=== PATIENT | male | born 1980 | race American Indian/Alaskan Native ===

== ENCOUNTER 2017-05-07 01:24 | Inpatient (IN) | payer MEDICARE, MEDICAID, OTHER ==
--- NOTE | 2017-05-07 01:57 | ED PDOC ---
Arrival/HPI - General Chief Complaint: ENT Problem Time Seen by Provider: 05/07/17 01:34 Historian: Patient - History of Present Illness Narrative History of Present Illness (Text): 05/07/17 01:50 Barry Danielson is a 37 year old male, with a history of CHF, hemodialysis and hypertension, presents to the emergency department complaining of 4 day duration of nosebleed. States he was evaluated by [facility] for these symptoms and was discharged home without a packing. Presents to the emergency department because he started bleeding again. Denies any fever, chills, headache, dizziness , chest pain, difficulty breathing, nausea, vomiting, diarrhea, or any other complaints at this time. Time/Duration: Other (4 days ) Symptom Onset: Gradual Symptom Course: Unchanged Activities at Onset: Light Past Medical History - Provider Review Nursing Documentation Reviewed: Yes - Infectious Disease Hx of Infectious Diseases: None - Cardiac Hx Congestive Heart Failure: Yes Hx Hypertension: Yes - Renal Hx Dialysis: Yes (MWF) Type of Dialysis Access: L AV Shunt - Psychiatric Hx Substance Use: No - Surgical History Other/Comment: L AV shunt - Anesthesia Hx Anesthesia: Yes Hx Anesthesia Reactions: No Hx Malignant Hyperthermia: No Family/Social History - Physician Review Nursing Documentation Reviewed: Yes Family/Social History: No Known Family HX Smoking Status: Unknown If Ever Smoked Hx Alcohol Use: No Hx Substance Use: No Allergies/Home Meds Allergies/Adverse Reactions: Allergies heparin Allergy (Verified 05/07/17 01:40) ANAPHYLAXIS PORK Allergy (Verified 05/07/17 01:40) ANAPHYLAXIS shellfish derived Adverse Reaction (Severe, Verified 05/10/17 11:54) RASH hives shellfish Allergy (Mild, Uncoded 05/10/17 11:54) RASH and hives Review of Systems - Physician Review All systems were reviewed & negative as marked: Yes - Review of Systems Constitutional: Normal. absent: Fatigue, Fevers ENT: Epistaxis Respiratory: Normal. absent: SOB, Cough, Sputum Cardiovascular: Normal. absent: Chest Pain Neurological: Normal. absent: Headache, Dizziness Psychiatric: Normal Physical Exam Vital Signs Reviewed: Yes Vital Signs Temp Pulse Resp BP Pulse Ox 05/07/17 04:50 153/108 H 05/07/17 03:24 102 H 18 158/102 H 96 05/07/17 01:24 98.1 F 109 H 18 137/108 H 95 Temperature: Afebrile Blood Pressure: Normal Pulse: Regular Respiratory Rate: Normal Appearance: Positive for: Non-Toxic Pain Distress: None Mental Status: Positive for: Alert and Oriented X 3 - Systems Exam Head: Present: Atraumatic, Normocephalic Extroacular Muscles: Present: EOMI Conjunctiva: Present: Normal Mouth: Present: Moist Mucous Membranes Nose (Internal): Present: Epistaxis (active bleeding from b/l nares ). No: Septal Hematoma Respiratory/Chest: Present: Clear to Auscultation, Good Air Exchange. No: Respiratory Distress, Accessory Muscle Use Cardiovascular: Present: Regular Rate and Rhythm, Normal S1, S2. No: Murmurs Abdomen: Present: Normal Bowel Sounds. No: Tenderness, Distention, Peritoneal Signs Upper Extremity: Present: Normal Inspection. No: Cyanosis, Edema Lower Extremity: Present: Normal Inspection. No: Edema Neurological: Present: GCS=15, CN II-XII Intact, Speech Normal, Motor Func Grossly Intact, Normal Sensory Function Skin: Present: Warm, Dry, Normal Color. No: Rashes Psychiatric: Present: Alert, Oriented x 3, Normal Insight, Normal Concentration Medical Decision Making ED Course and Treatment: 05/07/17 01:58 Impression: A 37 year old male who presents to the emergency department complaining of 4 day duration of epistaxis. Plan: -- Labs -- Nasal packing -- Reassess and disposition Progress Notes: 05/07/17 01:59 Bleeding stopped after bilateral nasal packing with rhinorocket. Patient was able to tolerate the procedure with good hemostasis. 05/07/17 04:00 Case discussed with who is aware and agrees with the plan to observe patient at remote telemetry for epistaxis. Accepts patient under his service. 05/07/17 05:33 EKG reviewed by me: NSR @ 98bpm. Left anterior fascicular block. Non specific ST/T wave abnormality. Prolonged QT - Lab Interpretations Lab Results: 05/08/17 06:00 05/08/17 06:00 Lab Results 05/08/17 06:00: Sodium 137, Potassium 4.3, Chloride 96 L, Carbon Dioxide 31, Anion Gap 14, BUN 30 H, Creatinine 11.4 H*, Est GFR ( Amer) 6, Est GFR ( Non-Af Amer) 5, Random Glucose 78, Calcium 8.8, Phosphorus 4.8 H, Magnesium 2.2 , Total Bilirubin 1.1, Direct Bilirubin 0.6 H, AST 17, ALT 21, Alkaline Phosphatase 107, Total Protein 6.6, Albumin 3.3, Globulin 3.3, Albumin/Globulin Ratio 1.0 L 05/08/17 06:00: WBC 3.7 L, RBC 2.83 L, Hgb 8.6 L, Hct 26.9 L, MCV 95.1, MCH 30.4 , MCHC 32.0, RDW 15.4 H, Plt Count 89 L, MPV 9.6 05/07/17 10:20: HIV 1&2 Ag/Ab, 4th Gen Nonreactive 05/07/17 10:20: 25-OH Vitamin D Total 18.2 L 05/07/17 10:20: Free T4 1.25, Thyroxine (T4) 6.8, TSH 3rd Generation 2.82 05/07/17 10:20: Triglycerides 47, Cholesterol 87 L, LDL Cholesterol Direct < 30 , HDL Cholesterol 52 05/07/17 10:20: PT 12.3 H, INR 1.14 H, APTT 28.6 05/07/17 10:20: WBC 4.1 L, RBC 3.06 L, Hgb 9.5 L, Hct 28.9 L, MCV 94.4, MCH 31.0 , MCHC 32.9, RDW 15.3 H, Plt Count 98 L, MPV 9.2, Gran % 56.0, Lymph % (Auto) 25.9, Thayer % (Auto) 11.4 H, Eos % (Auto) 6.2 H, Baso % (Auto) 0.5, Gran # 2.27, Lymph # 1.1 L, Thayer # 0.5, Eos # 0.3, Baso # 0.02 05/07/17 03:00: Blood Type Confirm O POSITIVE 05/07/17 02:00: PT 12.1 H, INR 1.12 H, APTT 28.0 05/07/17 02:00: Blood Type O POSITIVE, Antibody Screen Negative, Crossmatch See Detail, BBK History Checked No verified bt 05/07/17 02:00: Sodium 138, Potassium 4.2, Chloride 96 L, Carbon Dioxide 32, Anion Gap 14, BUN 21, Creatinine 9.4 H*, Est GFR ( Amer) 8, Est GFR (Non- Af Amer) 6, Random Glucose 93, Calcium 9.1, Total Bilirubin 1.7 H, AST 25, ALT 16, Alkaline Phosphatase 118, Total Protein 7.3, Albumin 3.8, Globulin 3.5, Albumin/Globulin Ratio 1.1 05/07/17 02:00: WBC 4.9, RBC 3.35 L, Hgb 10.2 L, Hct 31.5 L, MCV 94.0, MCH 30.4 , MCHC 32.4, RDW 15.5 H, Plt Count 132, MPV 10.3, Gran % 56.7, Lymph % (Auto) 24.0, Thayer % (Auto) 13.0 H, Eos % (Auto) 5.7 H, Baso % (Auto) 0.6, Gran # 2.79, Lymph # 1.2, Thayer # 0.6, Eos # 0.3, Baso # 0.03 - RAD Interpretation Radiology Orders: 05/07/17 08:27 CHEST TWO VIEWS (PA/LAT) [RAD] Stat 05/07/17 10:07 DUPLEX LOWER EXTRM VEIN BILAT [US] Stat - Medication Orders Current Medication Orders: Discontinued Medications Acetaminophen (Tylenol 325mg Tab) 650 mg PO Q6H PRN PRN Reason: Headache Last Admin: 05/09/17 06:56 Dose: 650 mg Carvedilol (Coreg) 25 mg PO BID [facility] Carvedilol (Coreg) 25 mg PO BID [facility] Last Admin: 05/08/17 18:00 Dose: Not Given Non-Admin Reason: Patient in Dialysis Carvedilol (Coreg) 3.125 mg PO BID [facility] Last Admin: 05/10/17 17:59 Dose: 3.125 mg Clindamycin HCl (Cleocin) 300 mg PO Q8H REED PRN Reason: Protocol Stop: 05/12/17 16:31 Last Admin: 05/10/17 17:58 Dose: 300 mg Fentanyl (Fentanyl) Confirm Administered Dose 200 mcg .ROUTE .STK-MED ONE Stop: 05/09/17 12:59 Fentanyl (Fentanyl) 50 mcg IVP .STK-MED ONE Stop: 05/09/17 13:26 Last Admin: 05/09/17 13:25 Dose: 50 mcg Fentanyl (Fentanyl) 50 mcg IVP .STK-MED ONE Stop: 05/09/17 13:30 Last Admin: 05/09/17 13:29 Dose: 50 mcg Flumazenil (Romazicon) Confirm Administered Dose 0.5 mg IVP .STK-MED ONE Stop: 05/09/17 12:59 Flumazenil (Romazicon) 0.1 mg IVP .STK-MED ONE Stop: 05/09/17 13:46 Last Admin: 05/09/17 13:45 Dose: 0.1 mg Furosemide (Lasix) 40 mg PO BID REED Furosemide (Lasix) 40 mg IVP Q12 [facility] Last Admin: 05/08/17 10:16 Dose: 40 mg Hydralazine HCl (Apresoline) 25 mg PO TID REED Hydralazine HCl (Apresoline) 25 mg PO TID [facility] Last Admin: 05/08/17 09:05 Dose: Hydrochlorothiazide (Hydrodiuril) 25 mg PO DAILY REED Hydrochlorothiazide (Hydrodiuril) 25 mg PO DAILY [facility] Last Admin: 05/08/17 09:06 Dose: Iohexol (Omnipaque 240 (50 Ml)) Confirm Administered Dose 50 ml .ROUTE .STK-MED ONE Stop: 05/07/17 18:15 Iohexol (Omnipaque 350 100 Ml) Confirm Administered Dose 350 mg .ROUTE .STK-MED ONE Stop: 05/07/17 18:15 Isosorbide Mononitrate (Imdur) 30 mg PO DAILY [facility] Isosorbide Mononitrate (Imdur) 30 mg PO DAILY [facility] Last Admin: 05/10/17 10:22 Dose: Not Given Non-Admin Reason: Patient in Dialysis Lidocaine HCl (Lidocaine 2% Viscous) Confirm Administered Dose 30 ml .ROUTE .STK -MED ONE Stop: 05/09/17 13:00 Lidocaine HCl (Lidocaine 2% Viscous) 30 ml MM .STK-MED ONE Stop: 05/09/17 13:16 Last Admin: 05/09/17 13:15 Dose: 30 ml Lisinopril (Zestril) 20 mg PO DAILY REED Lisinopril (Zestril) 20 mg PO DAILY [facility] Last Admin: 05/10/17 10:22 Dose: Not Given Non-Admin Reason: Patient in Dialysis Midazolam HCl (Versed Inj) Confirm Administered Dose 4 mg .ROUTE .STK-MED ONE Stop: 05/09/17 12:59 Midazolam HCl (Versed Inj) 1 mg IV .STK-MED ONE Stop: 05/09/17 13:24 Last Admin: 05/09/17 13:23 Dose: 1 mg Midazolam HCl (Versed Inj) 1 mg IV .STK-MED ONE Stop: 05/09/17 13:28 Last Admin: 05/09/17 13:27 Dose: 1 mg Midazolam HCl (Versed Inj) 1 mg IV .STK-MED ONE Stop: 05/09/17 13:29 Last Admin: 05/09/17 13:28 Dose: 1 mg Midazolam HCl (Versed Inj) 1 mg IV .STK-MED ONE Stop: 05/09/17 13:30 Last Admin: 05/09/17 13:29 Dose: 1 mg Morphine Sulfate (Morphine) 2 mg IVP STAT STA Stop: 05/07/17 02:14 Last Admin: 05/07/17 02:20 Dose: 2 mg Re-Assess: [facility] Pain Assessment Document 05/07/17 03:20 RS (Rec: 05/07/17 14:55 RS [email or web address]) Pain Reassessment Is this a pain reassessment? Yes Sleep Is patient sleeping during reassessment? Yes Morphine Sulfate (Morphine) Confirm Administered Dose 4 mg .ROUTE .STK-MED ONE Stop: 05/07/17 02:18 Last Admin: 05/07/17 02:20 Dose: Not Given Morphine Sulfate (Morphine) 2 mg IVP STAT STA Stop: 05/07/17 03:01 Last Admin: 05/07/17 03:37 Dose: 2 mg Re-Assess: [facility] Pain Assessment Document 05/07/17 04:37 RS (Rec: 05/07/17 14:54 RS [email or web address]) Pain Reassessment Is this a pain reassessment? Yes Sleep Is patient sleeping during reassessment? Yes Morphine Sulfate (Morphine) 2 mg IVP ONCE ONE Stop: 05/07/17 06:13 Last Admin: 05/07/17 06:28 Dose: 2 mg Re-Assess: [facility] Pain Assessment Document 05/07/17 07:28 RS (Rec: 05/07/17 14:54 RS [email or web address]) Pain Reassessment Is this a pain reassessment? Yes Sleep Is patient sleeping during reassessment? Yes Naloxone HCl (Narcan) Confirm Administered Dose 0.4 mg .ROUTE .STK-MED ONE Stop: 05/09/17 12:59 Last Admin: 05/09/17 14:00 Dose: Ondansetron HCl (Zofran Inj) 4 mg IVP STAT STA Stop: 05/07/17 12:59 Last Admin: 05/07/17 13:20 Dose: 4 mg Ondansetron HCl (Zofran Inj) 4 mg IVP Q4H PRN PRN Reason: Nausea/Vomiting Pantoprazole Sodium (Protonix Inj) 40 mg IVP STAT STA Stop: 05/07/17 04:25 Pantoprazole Sodium (Protonix Inj) 40 mg IVP DAILY REED Pantoprazole Sodium (Protonix Inj) 40 mg IVP DAILY REED Last Admin: 05/09/17 10:51 Dose: 40 mg Pantoprazole Sodium (Protonix Ec Tab) 40 mg PO 0600 REED Last Admin: 05/10/17 05:51 Dose: 40 mg Sodium Chloride (Crook Nasal Crofton) 0 ml NS TID PRN PRN Reason: Nasal congestion Last Admin: 05/09/17 21:30 Dose: 2 spr - Scribe Statement The provider has reviewed the documentation as recorded by the Brina Chand Provider Attestation: Provider Scribe Attestation: All medical record entries made by the Mickibjulio c were at my direction and personally dictated by me. I have reviewed the chart and agree that the record accurately reflects my personal performance of the history, physical exam, medical decision making, and the department course for this patient. I have also personally directed, reviewed, and agree with the discharge instructions and disposition. Disposition/Present on Arrival - Present on Arrival Any Indicators Present on Arrival: No History of DVT/PE: No History of Uncontrolled Diabetes: No Urinary Catheter: No History of Decub. Ulcer: No History Surgical Site Infection Following: None - Disposition Have Diagnosis and Disposition been Completed?: Yes Diagnosis: Epistaxis, ESRD (end stage renal disease) Disposition: HOSPITALIZED Disposition Time: 03:50 Condition: GOOD
[2017-05-07] MEDS ORDERED: Morphine 2 mg/ml ISec IVP STA ×2 (02:13→03:00)
[2017-05-07 02:19] LABS: BASO # 0.03 K/mm3 (0.0-2.0); BASO % 0.6 % (0.0-3.0); EOS # 0.3 (0.0-0.7); EOS % 5.7 % (1.5-5.0); GRAN # 2.79 (1.4-6.5); GRAN % 56.7 % (50.0-68.0); HEMOGLOBIN 10.2 gm/dL (14.0-18.0); LYMPH # 1.2 (1.2-3.4); MEAN CORPUSCULAR HEMOGLOBIN 30.4 pg (25.0-35.0); MEAN CORPUSCULAR HGB CONC 32.4 g/dl (31.0-37.0); MEAN PLATELET VOLUME 10.3 fl (7.0-11.0); MONO # 0.6 (0.1-0.6); PLATELET COUNT 132 10^3/uL (120.0-450.0); RBC 3.35 10^6/uL (3.5-6.1); RED CELL DISTRIBUTION WIDTH 15.5 % (11.5-14.5); WHITE BLOOD COUNT 4.9 10^3/ul (4.5-11.0)
[2017-05-07] MEDS: Morphine 4 mg/ml ISec ONE ×2 (02:20→03:36)
[2017-05-07 02:25] LABS: INR 1.12 (0.93-1.08); PROTHROMBIN TIME 12.1 Seconds (9.9-11.8)
[2017-05-07 02:26] LABS: ALB/GLOB RATIO 1.1 (1.1-1.8); ALBUMIN 3.8 g/dL (3.0-4.8); CALCIUM 9.1 mg/dL (8.4-10.5)
--- NOTE | 2017-05-07 04:53 | CP.PCM.HP ---
<NOEMÍ WALDEN - Last Filed: 05/07/17 04:33> History of Present Illness - History of Present Illness History of Present Illness: Pt is a 37 yo M with PMHx of ESRD on hemodialysis, HTN, CHF, and sleep apnea presents with c/o persistent epistaxis. Pt states that his intermittent nose bleeds began 4 days ago, without any inciting factors. Pt states that he attempted to stop the bleeding by packing his nose, applying pressure, and using ice, which did not resolve the bleed. Today, he was [place] [facility] and was discharged home without packing. His nose continued to bleed 2 hours prior to his arrival at [facility] [place]. In the ED, epistaxis continued and pt lost ~700 cc of blood. Hemostasis was achieved in the ED with packing. Pt states that he has not taken any of his medications in a month due to cost. Pt admits to some dark-colored diarrhea. Pt denies CP, SOB, n/v, fever, chills, and abdominal pain. PMHx: ESRD on hemodialysis (M,W,F), HTN, CHF, sleep apnea Surg: AV fistula LUE, cardiac catherization, pacemaker FHx: DM, HTN, CAD All: Pork, heparin SH: Denied EtOH, tobacco, or illicit drug use Medications (Not taking): Carvediolol 25 mg BID Imdur 30 mg daily Enalapril 5 mg BID HCTZ 25 mg daily Hydralazine 25 mg TID Lasix 40 mg BID Present on Admission - Present on Admission Any Indicators Present on Admission: No Review of Systems - Review of Systems All systems: reviewed and no additional remarkable complaints except (12 point ROS negative other than what is stated in HPI) Past Patient History - Infectious Disease Hx of Infectious Diseases: None - Past Social History Smoking Status: Unknown If Ever Smoked - CARDIAC Hx Congestive Heart Failure: Yes Hx Hypertension: Yes - RENAL Hx Dialysis: Yes (MWF) Type of Dialysis Access: L AV Shunt - PSYCHIATRIC Hx Substance Use: No - SURGICAL HISTORY Other/Comment: L AV shunt - ANESTHESIA Hx Anesthesia: Yes Hx Anesthesia Reactions: No Hx Malignant Hyperthermia: No Meds Allergies/Adverse Reactions: Allergies Allergy/AdvReac Type Severity Reaction Status Date / Time heparin Allergy ANAPHYLAXIS Verified 05/07/17 01:40 PORK Allergy ANAPHYLAXIS Verified 05/07/17 01:40 Physical Exam - Constitutional Appears: No Acute Distress - Head Exam Head Exam: ATRAUMATIC, NORMOCEPHALIC - Eye Exam Eye Exam: EOMI, PERRL - ENT Exam Additional comments: Unable to visualize nasal mucosa due to packing - Neck Exam Neck exam: Positive for: Full Rom. Negative for: Lymphadenopathy, Tenderness, Thyromegaly - Respiratory Exam Respiratory Exam: Clear to Auscultation Bilateral. absent: Rales, Rhonchi, Wheezes - Cardiovascular Exam Cardiovascular Exam: RRR, +S1, +S2. absent: Diastolic murmur, Gallop, Rubs, Systolic Murmur - GI/Abdominal Exam GI & Abdominal Exam: Hernia (Midline hernia appreciated with increased intraabdominal pressure just superior to navel), Soft. absent: Distended, Guarding, Rebound, Tenderness - Neurological Exam Neurological exam: Alert, Oriented x3 - Psychiatric Exam Psychiatric exam: Normal Affect, Normal Mood - Skin Skin Exam: Dry, Intact, Normal Color, Warm Results - Vital Signs Recent Vital Signs: Last Vital Signs Temp 98.1 F 05/07/17 01:24 Pulse 102 H 05/07/17 03:24 Resp 18 05/07/17 03:24 BP 158/102 H 05/07/17 03:24 Pulse Ox 96 05/07/17 03:24 - Labs Result Diagrams: 05/07/17 02:00 05/07/17 02:00 Assessment & Plan - Assessment and Plan (Free Text) Assessment: 37 yo M with PMHx of ESRD on hemodialysis, CHF, HTN, and sleep apnea admitted for evaluation and treatment of persistent epistaxis. 1. Epistaxis -Hemostasis achieved via nasal packing -Monitor H/H -Type and cross -ENT consulted 2. ESRD -Nephro consulted -Creatinine 9.4 -Hemodialysis MWF -Avoid nephrotoxic medications 3. HTN -Restart home meds: hydralyzine, HCTZ, lisinopril, imdur -Monitor BP -HHD 2 gm Na 4. CHF -Restart home meds: Lasix, Coreg 5. GI/DVT PPx -Protonix -SCDs Pt discussed in detail with Dr. Varner. <Refugio Varner - Last Filed: 05/07/17 11:07> Results - Vital Signs Recent Vital Signs: Last Vital Signs Temp 98.7 F 05/07/17 08:35 Pulse 96 H 05/07/17 08:35 Resp 19 05/07/17 08:35 BP 133/93 H 05/07/17 10:40 Pulse Ox 99 05/07/17 08:35 - Labs Result Diagrams: 05/07/17 10:20 05/07/17 02:00 Labs: Laboratory Results - last 24 hr 05/07/17 05/07/17 05/07/17 10:20 10:20 10:20 WBC 4.1 L RBC 3.06 L Hgb 9.5 L Hct 28.9 L MCV 94.4 MCH 31.0 MCHC 32.9 RDW 15.3 H Plt Count 98 L MPV 9.2 Gran % 56.0 Lymph % (Auto) 25.9 Titus % (Auto) 11.4 H Eos % (Auto) 6.2 H Baso % (Auto) 0.5 Gran # 2.27 Lymph # 1.1 L Titus # 0.5 Eos # 0.3 Baso # 0.02 PT 12.3 H INR 1.14 H APTT 28.6 Triglycerides 47 Cholesterol 87 L LDL Cholesterol Direct < 30 HDL Cholesterol 52 Assessment & Plan - Assessment and Plan (Free Text) Assessment: A/P: HX HTN ESRD HDD NON COMPLIANCE SYNCOPE S/P AICD IMPLANT CHF CMP NORA
[2017-05-07] MEDS ORDERED: Morphine 2 mg/ml ISec IVP ONE (06:12)
[2017-05-07 06:48] VITALS: BMI 32.8
--- NOTE | 2017-05-07 09:12 | RAD ---
HISTORY: HTN/EPISTAXIS COMPARISON: No prior. TECHNIQUE: Chest PA and lateral FINDINGS: LUNGS: The lungs are well inflated and clear. PLEURA: Suspect small pleural effusions. No pneumothorax apparent. CARDIOVASCULAR: There is severe cardiomegaly. There is a left-sided dual lead transvenous permanent pacing device. OSSEOUS STRUCTURES: No significant abnormalities. VISUALIZED UPPER ABDOMEN: Normal. OTHER FINDINGS: None. IMPRESSION: Severe cardiomegaly and suspect small pleural effusions.
[2017-05-07 10:37] LABS: BASO # 0.02 K/mm3 (0.0-2.0); BASO % 0.5 % (0.0-3.0); EOS # 0.3 (0.0-0.7); EOS % 6.2 % (1.5-5.0); GRAN # 2.27 (1.4-6.5); HEMOGLOBIN 9.5 gm/dL (14.0-18.0); LYMPH # 1.1 (1.2-3.4); LYMPH % 25.9 % (22.0-35.0); MEAN CELL VOLUME 94.4 fL (80.0-105.0); MEAN CORPUSCULAR HGB CONC 32.9 g/dl (31.0-37.0); MEAN PLATELET VOLUME 9.2 fl (7.0-11.0); MONO # 0.5 (0.1-0.6); MONO % 11.4 % (1.0-6.0); PLATELET COUNT 98 10^3/uL (120.0-450.0); RBC 3.06 10^6/uL (3.5-6.1); RED CELL DISTRIBUTION WIDTH 15.3 % (11.5-14.5); WHITE BLOOD COUNT 4.1 10^3/ul (4.5-11.0)
[2017-05-07 10:46] LABS: HDL CHOLESTEROL 52 mg/dL (29-60); INR 1.14 (0.93-1.08); PARTIAL THROMBOPLASTIN TIME 28.6 Seconds (23.7-30.8); PROTHROMBIN TIME 12.3 Seconds (9.9-11.8)
[2017-05-07 10:58] LABS: LDL CHOLESTEROL < 30 mg/dL (0-129)
[2017-05-07 11:06] LABS: FREE T4 1.25 ng/dL (0.78-2.19); T4 6.8 ug/dL (5.5-11.0)
--- NOTE | 2017-05-07 16:12 | CARD ---
APPROVED REPORT EXAM: Two-dimensional and M-mode echocardiogram with Doppler and color Doppler. INDICATION HX OF CHF 2D DIMENSIONS Left Atrium (2D)5.5 (1.6-4.0cm)IVSd2.1 (0.7-1.1cm) LVDd6.1 (3.9-5.9cm)PWd1.9 (0.7-1.1cm) LVDs5.3 (2.5-4.0cm)FS (%) 12.6 % LVEF (%)26.2 (>50%) M-Mode DIMENSIONS Aortic Root3.90 (2.2-3.7cm)Aortic Cusp Exc.2.30 (1.5-2.0cm) Aortic Valve AoV Peak Isggldwu866.0cm/[place] Peak GR.4mmHg Mitral Valve E/A ratio0.0 TDI E/Lateral E'0.0E/Medial E'0.0 Pulmonary Valve PV Peak Eobqkcge39.6cm/sPV Peak Grad.2mmHg Tricuspid Valve TR Peak [id number] [id number] Peak Gr.38mmHg [id number] LEFT VENTRICLE The Left Ventricle is moderately dilated. There is mild concentric left ventricular hypertrophy. The systolic function is severely impaired. There is global hypokinesis of the left ventricle. The apical thrombus is small. RIGHT VENTRICLE The right ventricle is moderately dilated. There is normal right ventricular wall thickness. RV Systolic function is severely reduced. ATRIA The left atrium is severely dilated. The right atrium is moderately dilated. AORTIC VALVE The aortic valve is normal in structure. There is no aortic valvular stenosis. MITRAL VALVE The mitral valve is normal in structure. Mitral regurgitation is trace. TRICUSPID VALVE There is mild tricuspid regurgitation. There is mild to moderate pulmonary hypertension. GREAT VESSELS The aortic root is normal in size. The IVC is dilated. The IVC collapses <50% with inspiration. <Conclusion> The Left Ventricle is moderately dilated. There is mild concentric left ventricular hypertrophy. The systolic function is severely impaired. There is global hypokinesis of the left ventricle. The apical thrombus is small. RV Systolic function is severely reduced. There is mild to moderate pulmonary hypertension.
--- NOTE | 2017-05-07 16:34 | CARD ---
APPROVED REPORT EKG Measurement Heart [id number] <Conclusion> Normal sinus rhythm Pulmonary disease pattern Left anterior fascicular block Nonspecific ST and T wave abnormality Prolonged QT Abnormal ECG
--- NOTE | 2017-05-07 16:38 | CARD ---
APPROVED REPORT EKG Measurement Heart [id number] <Conclusion> Normal sinus rhythm with sinus arrhythmia Left anterior fascicular block Nonspecific ST and T wave abnormality Prolonged QT Abnormal ECG
[2017-05-07] MEDS ORDERED: Iohexol 350 MG/100 ML VIAL ONE (18:14)
[2017-05-07] MEDS ORDERED: Iohexol 240 (50 ml) ONE (18:14)
--- NOTE | 2017-05-07 19:52 | US ---
HISTORY: Leg pain and swelling. Evaluate for DVT PHYSICIAN(S): Sandro Smart MD. TECHNIQUE: Duplex sonography and color-flow Doppler with graded compression were used to evaluate the deep venous systems of both lower extremities. The exam is limited by edema. FINDINGS: The visualized deep venous systems of both lower extremities are sonographically normal and compressible. Normal wave forms and augmentation are seen. There is no sonographic evidence for deep venous thrombosis in the visualized segments of both lower extremities. IMPRESSION: No sonographic evidence for deep venous thrombosis in the visualized segments of both lower extremities.
--- NOTE | 2017-05-08 00:01 | CON ---
DATE: 05/07/2017 Patient is admitted for Dr. Varner. REFERRING MD: Dr. Varner. REASON FOR CONSULTATION: To provide dialysis services for patient unknown to us, admitted with uncontrolled epistaxis. HISTORY OF PRESENT ILLNESS: Patient is a pleasant 37-year-old black male with a history of end-stage renal disease on chronic maintenance hemodialysis. Patient dialyzes at [facility]. He is under the care of Dr. Whitten. Patient presented to [facility] with epistaxis. Epistaxis did not improve. He came to [facility] for further evaluation and was admitted for evaluation of his epistaxis. He had packing of the right nostril done in the emergency room. According to chart, he lost approximately 700 mL of blood. Patient's last dialysis was on 05/06/2017. He is scheduled for dialysis tomorrow. Patient has a hemoglobin of NORA on CPAP therapy, history of hypertension, hypertensive nephrosclerosis, hypertensive cardiomyopathy status post AICD and permanent pacemaker, history of CHF, history of anemia secondary to chronic kidney disease. We are asked to evaluate patient to provide dialysis services. Patient is currently seen having an echocardiogram. PAST MEDICAL HISTORY: Significant for end stage renal disease on chronic maintenance hemodialysis, history of hypertension, hypertensive nephrosclerosis, hypertensive cardiomyopathy status post AICD permanent pacemaker, history of CHF, history of NORA on CPAP therapy, history of anemia secondary to chronic kidney disease. No history of diabetes. Patient has a working left upper extremity AV fistula. MEDICATIONS: At home are unavailable. ALLERGIES: The patient is allergic to HEPARIN and PORK. ACTIVE MEDICATIONS: Include that of Apresoline, Coreg, HydroDIURIL, Imdur, Lasix, Protonix, and lisinopril. SOCIAL HISTORY: No history of cigarette smoking. No history of alcohol use. Patient was a former cigarette smoker. He had used occasional marijuana in the past. FAMILY HISTORY: Positive for heart disease, diabetes, and hypertension. REVIEW OF SYSTEMS: Ten point systems reviewed with the patient. All negative except for what is noted above. PHYSICAL EXAMINATION GENERAL: Patient is currently seen in the process of having an echocardiogram. VITAL SIGNS: Blood pressure 133/93, temperature 98.7, respiratory rate 19, with a pulse of 96. HEENT: Normocephalic and atraumatic. Patient has packing in his right nostril. Conjunctivae are pale. Sclerae are nonicteric. Pupils are equal, round, reactive to light and accommodation. Extraocular muscles are intact. NECK: Supple. No neck vein distention. No thyromegaly. No lymphadenopathy. No bruits. CHEST: Clear to auscultation and percussion. No rales. No rhonchi. No wheezing. CARDIOVASCULAR: Shows regular rate and rhythm without audible murmurs, rubs or gallops. ABDOMEN: Soft, bowel sounds normal. No rebound, no guarding, no masses. BACK: No CVAT. No spinal tenderness. EXTREMITIES: Show no cyanosis or clubbing or edema. Positive left upper extremity AV fistula, positive thrill, positive bruit. NEUROLOGIC: Shows him to be alert and oriented x3 with no gross focal motor or sensory deficits noted. LABORATORY DATA AND IMAGING: Admitting chest x-ray showed no acute pulmonary disease, positive permanent pacemaker/AICD. EKG showed normal sinus rhythm. Echocardiogram is being done presently. CBC: White blood cell count 4.1, hemoglobin followup down to 9.5 from 10.2. Platelet count is 98,000. Coags: PT of 12.2 with a PTT of 28.6. Chemistries showed normal electrolytes. Potassium 4.2. BUN 21 with a creatinine of 9.4. Calcium 9.1. Bilirubin 1.7. Liver enzymes are normal. Thyroid function test are normal. Albumin level was 3.8. ASSESSMENT: 1. End stage renal disease. Patient is scheduled for his routine 4.5 hour dialysis treatment tomorrow, in all likelihood, patient might be discharged later today. If he does not receive dialysis tomorrow without heparin, patient has an allergy to heparin and he also will not receive heparin because of the epistaxis. 2. History of hypertension with hypertensive nephrosclerosis and hypertensive cardiomyopathy. Patient is status post AICD permanent pacemaker for congestive heart failure. He appears to be clinically stable in terms of his volume status. No evidence for congestive heart failure. No evidence for lower extremity edema. Patient appears to be doing well when he is dialyzed down to his dry weight. 3. History of obstructive sleep apnea. Patient should continue using CPAP therapy. 4. History of anemia, likely worsened by his epistaxis. Patient will receive iron as per protocol. Once he returns to his unit, we will continue on AMELIA to help improve his hemoglobin. 5. Possible secondary hyperparathyroidism. We will obtain a phosphorus level. The patient presently had been taking no binders at home. PLAN: Text. 1. Hemodialysis tomorrow if patient remains in inpatient in [facility]. Otherwise, patient will receive dialysis at his dialysis unit at [facility] for . 2. Patient will return to the care of Dr. Whitten upon discharge. 3. No heparin because of his allergy and also because of the fact that he had significant epistaxis. 4. Continue present cardiac and blood pressure medications. Patient had apparently stopped these as an outpatient. 5. Check phosphorus level and make a decision about binder therapy. 6. Continue patient on a renal diet. 7. ENT evaluation for his epistaxis for removal of the packing. Thank you for letting me part take and share in the care of your patient. Junior Edwards MD
--- NOTE | 2017-05-08 05:24 | CON ---
DATE: 05/07/2017 EAR, NOSE AND THROAT CONSULTATION CONSULTING PHYSICIAN: Dr. Radhames An. REFERRING PHYSICIAN: Dr. Refugio Varner. REASON FOR CONSULTATION: Epistaxis. HISTORY OF PRESENT ILLNESS: This is a 37-year-old male with past medical history of hypertension, end-stage renal disease on hemodialysis, congestive heart failure, status post defibrillator placement and sleep apnea, on CPAP machine, who presents to [facility] with persistent epistaxis. The patient reports epistaxis for the past 4 days that has stopped with pressure at home. The patient was also seen at [facility] yesterday during the day for the same complaint; however, epistaxis is controlled with pressure at that time, and patient was discharged without any intervention. Again, the patient states his epistaxis returned when he was sleeping last night, began around midnight, and he came to the emergency room at [facility] with active epistaxis. In the emergency room, it was reported that about 700 mL of blood came out of his nose, mostly on the right side. The right nose is packed with 7.5 Rapid Rhino and the left nose is also packed with Rapid Rhino, which seemed to control most of the bleeding. The left Rapid Rhino fell out while the patient was sneezing. He was admitted overnight for observation and telemetry. Overnight, no acute events occurred. The patient reports a small amount of oozing anteriorly from the right naris; however bleeding is much more controlled than prior to arrival. Upon evaluation, patient denies any previous history of epistaxis, states that he was not using his CPAP mask at home recently and does not show that dry CPAP air was being blown to his face. At this point, he notes some facial pressure on the right side where the Rapid Rhino was packed. PAST MEDICAL HISTORY: As above. PAST SURGICAL HISTORY: AV fistula, cardiac catheterization and placement of pacemaker. ALLERGIES: HE IS ALLERGIC TO PORK AND HEPARIN. SOCIAL HISTORY: Denies alcohol, tobacco, or illicit drug use. HOME MEDICATIONS: Include carvedilol, Imdur, enalapril, hydrochlorothiazide, hydralazine and Lasix. REVIEW OF SYSTEMS: Negative as per HPI. PHYSICAL EXAMINATION: VITAL SIGNS: Blood pressure is 133/93, respiratory rate 19, O2 saturation 99% on room air, temperature 98.7, pulse rate is 96. GENERAL: He is awake, alert, oriented x3, in no acute distress. HEENT: Eyes, extraocular movements intact. Ears, external auricles unremarkable. Canals clear. Right ear with mild amount of blood behind tympanic membrane. The left ear tympanic membrane intact without any abnormalities. Nose: There is a 7.5 Rapid Rhino placed on the right naris with dry crusted blood around the outside. No active epistaxis. The left side of the nose is clear without discharge or epistaxis. No bleeding vessels are seen. Oral cavity, oropharynx: Oral mucosa is moist. Tongue is mobile in midline. Uvula is midline. There is a small amount of old blood seen in the posterior oropharynx with no active bleeding. NECK: Supple, obese, nontender. No lymphadenopathy. LUNGS: Respirations are unlabored. LABORATORY DATA: His white blood cell count is 4.1, hemoglobin is 9.5, platelet count is 98. PT 12.3, INR is 1.14. Sodium 138, potassium 4.2, chloride 96, BUN 21, creatinine 9.4. ASSESSMENT AND PLAN: This is a 37-year-old male with past medical history of hypertension, end-stage renal disease, on hemodialysis, and congestive heart failure, who was admitted to [facility] for epistaxis, mostly out of the right side, status post Rapid Rhino placed by the emergency room. At this point, recommend that the packing remain in place for an additional 48 hours. The patient does not need to stay in hospital for the packing to remain in place. He was instructed to follow up as an outpatient rather on or Saturday of this week, which has been two days to have the packing removed in the office. While the packing is in place, the patient was started on p.o. antibiotics for prophylaxis; due to his renal failure, I started him on clindamycin p.o. The patient is to continue taking these antibiotics while the packing remains in place even as an outpatient. The patient was also educated on postoperative precautions including no strenuous activities for the next few days, sneezing with mouth open, placing nothing in the naris and also saline spray solution to moisten the mucosa. At this point, the patient is cleared for discharge home from ear, nose and throat perspective and will follow up as an outpatient as stated above. The patient was in agreement with the plan and vocalized understanding. Thank you for allowing us to participate in this patient's care. Radhames An DO
[2017-05-08 06:58] LABS: ALBUMIN 3.3 g/dL (3.0-4.8); BILIRUBIN,DIRECT 0.6 mg/dL (0.0-0.4); CALCIUM 8.8 mg/dL (8.4-10.5); MAGNESIUM 2.2 mg/dL (1.7-2.2)
[2017-05-08 07:05] LABS: HEMOGLOBIN 8.6 gm/dL (14.0-18.0); MEAN CELL VOLUME 95.1 fL (80.0-105.0); MEAN CORPUSCULAR HEMOGLOBIN 30.4 pg (25.0-35.0); MEAN PLATELET VOLUME 9.6 fl (7.0-11.0); RBC 2.83 10^6/uL (3.5-6.1); RED CELL DISTRIBUTION WIDTH 15.4 % (11.5-14.5); WHITE BLOOD COUNT 3.7 10^3/ul (4.5-11.0)
--- NOTE | 2017-05-08 10:56 | CP.PCM.PN ---
Subjective - Date & Time of Evaluation Date of Evaluation: 05/08/17 Time of Evaluation: 07:30 - Subjective Subjective: 37 year old male PMH ESRD, CHF, HTN was seen today at bedside in no acute distress, alert, awake, and oriented. Patient states that he doesn't feel pain, bust admits to discomfort. He states that he was seen by ENT and was instructed on how to manipulate nostrils to avoid sneezing which may disrupt rapid rhino packing. Patient states that he has mucus build up which causes him to breathe from his mouth, causing dry mouth. He states that he has been expectorating the mucus which to note does contain non-copious amount of blood. Patient denies shortness of breath, chest pain, headache, n/v/d. Objective - Vital Signs/Intake and Output Vital Signs (last 24 hours): Temp Pulse Resp BP Pulse Ox 98.6 F 89 18 125/83 99 05/08/17 10:43 05/08/17 10:43 05/08/17 10:43 05/08/17 10:43 05/08/17 07:42 Intake and Output: 05/08/17 05/08/17 06:59 18:59 Intake Total 1200 20 Output Total 900 Balance 300 20 - Medications Medications: Current Medications Acetaminophen (Tylenol 325mg Tab) 650 mg PO Q6H PRN PRN Reason: Headache Last Admin: 05/08/17 08:09 Dose: 650 mg Carvedilol (Coreg) 25 mg PO BID [facility] Last Admin: 05/08/17 09:06 Dose: Not Given Clindamycin HCl (Cleocin) 300 mg PO Q8H [facility] PRN Reason: Protocol Stop: 05/12/17 16:31 Last Admin: 05/08/17 08:51 Dose: 300 mg Furosemide (Lasix) 40 mg IVP Q12 [facility] Last Admin: 05/08/17 10:16 Dose: 40 mg Hydralazine HCl (Apresoline) 25 mg PO TID [facility] Last Admin: 05/08/17 09:05 Dose: Not Given Hydrochlorothiazide (Hydrodiuril) 25 mg PO DAILY [facility] Last Admin: 05/08/17 09:06 Dose: Not Given Isosorbide Mononitrate (Imdur) 30 mg PO DAILY [facility] Last Admin: 05/08/17 09:06 Dose: Not Given Lisinopril (Zestril) 20 mg PO DAILY [facility] Last Admin: 05/08/17 09:06 Dose: Not Given Ondansetron HCl (Zofran Inj) 4 mg IVP Q4H PRN PRN Reason: Nausea/Vomiting Pantoprazole Sodium (Protonix Inj) 40 mg IVP DAILY [facility] Last Admin: 05/08/17 09:07 Dose: 40 mg - Labs Labs: 05/08/17 06:00 05/08/17 06:00 PT 12.3 Seconds (9.9-11.8) H 05/07/17 10:20 INR 1.14 (0.93-1.08) H 05/07/17 10:20 APTT 28.6 Seconds (23.7-30.8) 05/07/17 10:20 - Constitutional Appears: Well - Head Exam Head Exam: ATRAUMATIC, NORMAL INSPECTION - Eye Exam Eye Exam: EOMI, Normal appearance - ENT Exam ENT Exam: Mucous Membranes Dry, Normal Exam Additional comments: Rhino Rocket packing in right nostril is dark red due to bleeding overnight. - Respiratory Exam Respiratory Exam: Clear to Ausculation Bilateral, NORMAL BREATHING PATTERN. absent: Wheezes - Cardiovascular Exam Cardiovascular Exam: REGULAR RHYTHM, RRR, +S1, +S2 - GI/Abdominal Exam GI & Abdominal Exam: Soft, Normal Bowel Sounds - Extremities Exam Extremities Exam: absent: Calf Tenderness, Pedal Edema - Neurological Exam Neurological Exam: Alert, Awake, Oriented x3 - Skin Skin Exam: Dry, Normal Color, Warm Assessment and Plan - Assessment and Plan (Free Text) Assessment: 37 year old male PMH ESRD, CHF, HTN admitted here for epistaxis,currently treating epistaxis along with ESRD, CHF, and HTN. Plan: 1. Epistaxis - ENT is following through with the case - Bleeding continues; not as profuse or prominent as prior episode. Nasal packing is dark red - Patient will follow up with ENT as outpt at appt tomorrow. ENT will remove nasal packing - Patient educated on medication compliance and is aware of the effect his HTN and ESRD had with his epistaxis 2. ESRD - Nephro consulted - Hgb: upon being admitted was 10.2, now 8.6. - HCT: upon being admitted was 31.5, now 26.9. - Transfusing 2 units PRBCs. 1st unit given prior to dialysis with 40 mg IV lasix. 2nd unit will be given during dialysis. - Platelets: upon being admitted was 132, now 89. - Transfusing 10 units of Platelets. - Dialysis today at 2 p.m., will continue to monitor H&H and platelets s/p dialysis and transfusions. Once normalized, patient may be discharged. 3. HTN - Continue with Lisinopril 20 mg PO daily - Continue with Furosemide 40 mg IVP q12h - Continue with HCTZ 25 mg PO daily - Continue with Coreg 25 mg BID - Patient educated on medication compliance 4. Systolic CHF - Echo reveals: LV apical thrombus, LVEF 26%, LV dilatation and global hypokinesis,pulmonary hypertension; Cardiology consulted - Continue with Lisinopril 20 mg PO daily - Continue with Furosemide 40 mg IVP q12h - Continue with HCTZ 25 mg PO daily - Continue with Coreg 25 mg BID - Patient educated on medication compliance
--- NOTE | 2017-05-08 15:29 | PN ---
DATE: 05/08/2017 LOCATION: The patient is seen in room 366, bed 1. SUBJECTIVE: The patient is seen lying in the bed. The patient's blood transfusion is in process. The patient right nostril Rhino Rocket is in place with dark blood noted. The patient reports coughing up some blood mixed with sputum. PHYSICAL EXAMINATION: VITAL SIGNS: T-max is 98, pulse is 84, blood pressures in the last 24 hours 137/108, 158/102, 153/108, 160/98, 133/93, 114/72, 108/68, 123/83, 108/72, respirations 18, and O2 sat is 99% to 96%. HEAD: Normocephalic and atraumatic. HEENT: Shows positive right nostril Rhino Rocket. Pale conjunctivae. Anicteric sclera. No oropharyngeal lesion. NECK: No neck rigidity. CHEST: Shows positive left upper chest AICD. LUNGS: Shows questionable decreased breath sound at the bases. CARDIOVASCULAR: S1 and S2, regular rhythm. Positive systolic murmur. Right second intercostal space, left sternal border, left second intercostal space. ABDOMEN: Soft. Positive bowel sounds. GENITALIA: Male. RECTAL: Deferred. EXTREMITIES: Shows positive left upper extremity AV fistula, positive swelling of the lower extremity bilaterally. MUSCULOSKELETAL: Shows a body mass index of 33. Cranial nerves II through XII limited. NEUROLOGIC: The patient is alert, awake, and oriented x3. No gross deficits noted. Gait examination not tested. DIAGNOSTIC DATA: From 05/08/2017; WBC is 3.7, hemoglobin and hematocrit 8.6 and 27, platelet 89,000, which has dropped from 132,000, hemoglobin has dropped from 10. 2 to 8.6, hematocrit from 31.5 to 26.9. PT/PTT is 12.3 and 28.6. Sodium 137, potassium 4.3, chloride 96, CO2 of 31, anion gap 14, BUN 30, creatinine 11.4, GFR is 6, glucose 78, calcium 8.8, phosphorous 4.8, and magnesium 2.2. LFTs are normal. Vitamin D 18.2. Cholesterol 87. LDL less than 30, HDL 52, TSH 2.82, and T4 of 6.8. HIV nonreactive. Blood type O positive. The patient ordered transfusion of 2 units. Venous Doppler was negative. EKG done show sinus tachycardia, left anterior hemiblock. Echocardiogram results reviewed. Ejection fraction 26%. Right ventricular systolic pressure 48, moderately dilated left ventricle, concentric left ventricular hypertrophy, severely impaired systolic function with left ventricular global hypokinesis and small apical thrombus, moderately dilated right ventricle, severely reduced right ventricular systolic function. Severely dilated left and right atrium, trace mitral regurgitation, mild tricuspid regurgitation, and moderate pulmonary hypertension. IMPRESSION AND PLAN: 1. Right nostril possible anterior epistaxis resolved versus resolving. 2. Acute blood loss anemia. 3. Status post uncontrolled hypertension, now hypotension. 4. Pancytopenia with leukopenia, anemia, and thrombocytopenia. 5. History of medication noncompliance. 6. End-stage renal disease, hemodialysis dependent. 7. Hypovitaminosis D. 8. Left upper extremity arteriovenous fistula placement. 9. Severe cardiomegaly. 10. Small bilateral pleural effusion. 11. Sinus tachycardia with left anterior hemiblock. 12. Dilated cardiomyopathy with ejection fraction of 26% and moderately dilated left ventricle with left ventricular hypertrophy and severely impaired left ventricular systolic function with global left ventricular hypokinesis and small apical thrombus. 13. Moderately dilated right ventricle with severely reduced right ventricular systolic function. 14. Kzmehvct-yb-ywrxczhe dilated right and left atrium. 15. Trace mitral regurgitation. 16. Mild tricuspid regurgitation. 17. Fklk-ax-sdxdkbyt pulmonary hypertension with elevated right ventricular systolic pressure 48 mmHg. 18. End-stage renal disease, hemodialysis dependent 3 times a week via left upper extremity arteriovenous fistula. 19. Hypertensive end-stage renal disease and hypertensive nephrosclerosis and hypertensive cardiomyopathy. 20. History of sleep apnea with obesity. The patient was seen by nephrology and ENT, their recommendations are noted. ENT has recommended to leave the Rhino Rocket in place for at least another 48 hours with ENT followup in the office. The patient was started on p.o. antibiotic as per ENT recommendation. The patient was advised no strenuous activity. No sneezing. The patient has been ordered serial lab. The patient has been ordered transfusion of 2 units of PRBC and platelets. Current consultation ENT and nephrology. In addition, the patient has been requested to be seen by cardiology for LV thrombus. The patient has been ordered transfusion of PRBC and platelet. CURRENT MEDICATIONS: Clindamycin 300 mg p.o. q.8 h, Coreg 25 mg twice a day, hydrochlorothiazide 25 mg daily, Imdur 30 mg daily, Lasix 40 mg IV q.12 h., the patient is on Protonix 40 daily, Zestril 20 mg daily, and Zofran 4 mg IV q.4 h. The patient's hydralazine is held at this time because of hypotension. The patient has been updated about his condition, diagnoses, treatment plan, management plan in detail, all question concerned and answered, which he acknowledges to understand. The patient was educated about compliance of medication, diet, and physician followup. At present, the patient will be continued on the above therapeutic intervention. If the patient is stabilized from all aspects, the patient will be consider for discharge. The patient has been ordered, we were awaiting cardiology evaluation and recommendation regarding the LV thrombus. Refugio Varner MD
--- NOTE | 2017-05-08 17:25 | PN ---
SUBJECTIVE: The patient is seen lying in the bed. He is awake, he is alert, he is comfortable. He denies any pain. He denies any shortness of breath. He denies any further bleeding from the right nostril. PHYSICAL EXAMINATION: GENERAL: Young male lying in bed. VITAL SIGNS: Blood pressure 136/85, heart rate 81, respiratory rate 18, temperature 97.9. HEENT: Normocephalic, atraumatic. NECK: Supple. No JVD. LUNGS: Bilateral equal air entry, no rales. CARDIAC: S1, S2, regular rate and rhythm. No murmur. No rubs. ABDOMEN: Obese, distended, soft, nontender. Bowel sounds present. INTAKE AND OUTPUT: Not charted. LABORATORY DATA: WBC 8.7, hemoglobin 8.6, hematocrit 27, platelets 89. Sodium 137, potassium 4.3, chloride 96, CO2 31, BUN 30, creatinine 11.4, glucose 78, calcium 8.8, phosphorus 4.8, magnesium 2.2, albumin 3.3. HIV nonreactive. CURRENT MEDICATIONS: Cleocin, Coreg, hydrochlorothiazide 25 mg daily?, Imdur, Lasix 40 IV q.12?, Protonix, Tylenol, Zestril, Zofran. ASSESSMENT AND PLAN: 1. End-stage renal disease, dialysis Saturday, Saturday, Saturday. 2. Hypertension. 3. Sleep apnea. 4. Hypertensive nephrosclerosis. 5. Cardiomyopathy. 6. Anemia secondary to epistaxis and end-stage renal disease. PLAN: 1. The patient will receive dialysis today. 2. Agree with 2 units of blood transfusion, second unit can be given during dialysis. 3. Discontinue IV Lasix and hydrochlorothiazide. 4. 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 Urmila Rutledge MD ERLIN
[2017-05-09 07:40] LABS: ALB/GLOB RATIO 1.1 (1.1-1.8); ALBUMIN 3.7 g/dL (3.0-4.8); CALCIUM 8.9 mg/dL (8.4-10.5)
[2017-05-09 07:45] LABS: MEAN CELL VOLUME 94.1 fL (80.0-105.0); MEAN CORPUSCULAR HEMOGLOBIN 31.1 pg (25.0-35.0); MEAN PLATELET VOLUME 9.7 fl (7.0-11.0); RBC 3.22 10^6/uL (3.5-6.1); RED CELL DISTRIBUTION WIDTH 16.3 % (11.5-14.5); WHITE BLOOD COUNT 4.7 10^3/ul (4.5-11.0)
--- NOTE | 2017-05-09 07:56 | CP.PCM.PN ---
Subjective - Date & Time of Evaluation Date of Evaluation: 05/09/17 Time of Evaluation: 07:00 - Subjective Subjective: This is a progress note for Dr. Varner's Internal Medicine service 37 year old male PMH ESRD, CHF, HTN admitted for epistaxis was seen today at bedside in his cell phone in no acute distress, alert, awake, and oriented. Patient has no complaints at this time. Is aware of LV apical thrombus and understands that he will remain inpatient until seen by cardiology and further evaluated. He states tylenol helps with his nasal irritation. Denies chest pain , shortness of breath, headache, n/v/d. Objective - Vital Signs/Intake and Output Vital Signs (last 24 hours): Temp Pulse Resp BP Pulse Ox 98.7 F 98 H 20 125/94 H 99 05/08/17 23:22 05/09/17 02:00 05/08/17 23:22 05/08/17 23:22 05/08/17 07:42 Intake and Output: 05/09/17 05/09/17 06:59 18:59 Intake Total 700 240 Balance 700 240 - Medications Medications: Current Medications Acetaminophen (Tylenol 325mg Tab) 650 mg PO Q6H PRN PRN Reason: Headache Last Admin: 05/09/17 06:56 Dose: 650 mg Carvedilol (Coreg) 25 mg PO BID [facility] Last Admin: 05/08/17 18:00 Dose: Not Given Clindamycin HCl (Cleocin) 300 mg PO Q8H [facility] PRN Reason: Protocol Stop: 05/12/17 16:31 Last Admin: 05/09/17 00:34 Dose: 300 mg Isosorbide Mononitrate (Imdur) 30 mg PO DAILY [facility] Last Admin: 05/08/17 09:06 Dose: Not Given Lisinopril (Zestril) 20 mg PO DAILY [facility] Last Admin: 05/08/17 09:06 Dose: Not Given Ondansetron HCl (Zofran Inj) 4 mg IVP Q4H PRN PRN Reason: Nausea/Vomiting Pantoprazole Sodium (Protonix Inj) 40 mg IVP DAILY [facility] Last Admin: 05/08/17 09:07 Dose: 40 mg - Labs Labs: 05/09/17 06:30 05/09/17 06:30 PT 12.3 Seconds (9.9-11.8) H 05/07/17 10:20 INR 1.14 (0.93-1.08) H 05/07/17 10:20 APTT 28.6 Seconds (23.7-30.8) 05/07/17 10:20 - Constitutional Appears: Well, No Acute Distress - Head Exam Head Exam: ATRAUMATIC, NORMAL INSPECTION, NORMOCEPHALIC - Eye Exam Eye Exam: EOMI, Normal appearance Pupil Exam: NORMAL ACCOMODATION, PERRL - ENT Exam ENT Exam: Mucous Membranes Moist, Normal Exam - Respiratory Exam Respiratory Exam: Clear to Ausculation Bilateral, NORMAL BREATHING PATTERN - Cardiovascular Exam Cardiovascular Exam: REGULAR RHYTHM, RRR, +S1, +S2. absent: Clicks, Gallop - GI/Abdominal Exam GI & Abdominal Exam: Soft, Normal Bowel Sounds - Neurological Exam Neurological Exam: Alert, Awake, Oriented x3 - Skin Skin Exam: Dry, Intact, Normal Color Assessment and Plan - Assessment and Plan (Free Text) Assessment: 37 year old male PMH ESRD, CHF, HTN admitted here for epistaxis,currently treating epistaxis along with ESRD, CHF, and HTN. Plan: 1. Epistaxis - ENT is following through with the case - Nasal packing is starting to dry; not bleeding as much as before - Patient will follow up with ENT as outpt. ENT will remove nasal packing - Patient educated on medication compliance and is aware of the effect his HTN and ESRD had with his epistaxis 2. ESRD - Nephro consulted - Hgb: upon being admitted was 10.2, on day # 2 of hospital visit, 8.6. - HCT: upon being admitted was 31.5, on day # 2 of hospital visit, 26.9. - 2 units PRBCs trasfused.Hgb now 10.0, Hct now 30.3 on day #3 of hospital visit - Platelets: upon being admitted was 132, 89 on day #2 of hospital visit; 1 unit of platelets transfused; platelets now 113 - Continue to monitor H&H and platelets 3. HTN - Continue with Lisinopril 20 mg PO daily - Continue with Coreg 25 mg BID - D/CFurosemide 40 mg IVP q12h - D/C HCTZ 25 mg PO daily - Patient educated on medication compliance 4. Systolic CHF - Echo reveals: LV apical thrombus, LVEF 26%, LV dilatation and global hypokinesis,pulmonary hypertension; Cardiology consulted; will perform RUY for further evaluation of thrombus. - Continue with Lisinopril 20 mg PO daily - Coreg 25 mg BID - D/C Furosemide 40 mg IVP q12h - D/C HCTZ 25 mg PO daily - Patient educated on medication compliance Plan was discussed and reviewed in detail with Dr. Varner and PGY2 resident Dr. Laura Payton D.O.
--- NOTE | 2017-05-09 11:49 | PN ---
DATE: 05/09/2017 SUBJECTIVE: The patient is seen sitting up in bed. He is groggy, he is falling a sleep. On questioning, he reports that he was not taking any of his medications for the last one month. He also reports that he still urinates. PHYSICAL EXAMINATION GENERAL: A young male, sitting in bed. VITAL SIGNS: Blood pressure 125/83, heart rate 87, respiratory rate 20, temperature 98.6. HEENT: Normocephalic, atraumatic; packing in the right nostril. NECK: Supple. No JVD. LUNGS: Bilateral equal air entry; bilateral rhonchi; no rales. CARDIAC: S1, S2, regular rate and rhythm. No murmur. No rub. ABDOMEN: Obese, distended, soft, nontender. Bowel sounds present. EXTREMITIES: No lower extremity edema. INTAKE AND OUTPUT: Not charted. LABORATORY DATA: WBC 4.7, hemoglobin 10, hematocrit 30 and platelets 103. Sodium 138, potassium 4.7, chloride 96, CO2 of 31, BUN 25, creatinine 9.2, glucose 77, calcium 8.9, phosphorus 4.8, magnesium 2.0, total bilirubin 1.2, vitamin D 18.2. CURRENT MEDICATIONS: Clindamycin 300 q. 8; Coreg 25 b.i.d., not given; Imdur 30, not given; Tylenol, Zestril, Zofran, hydralazine. ASSESSMENT: 1. End-stage renal disease. 2. Hypertensive nephrosclerosis. 3. Hypertensive heart disease. 4. Sleep apnea. 5. Status post severe epistaxis. 6. Multifactorial anemia. 7. Compensated hyperphosphatemia. PLAN: It appears that the patient was noncompliant with most of his medications prior to this episode of epistaxis. It is quite possible that the reason for the epistaxis was severe elevated high blood pressure. Currently, his blood pressure is low. Perhaps, his medications need to be adjusted. Discontinue his hydrochlorothiazide and Lasix. Coreg can perhaps to be decreased to 3.125 b.i.d. We would continue lisinopril for cardiac benefits. Unclear if he needs to be on the isosorbide. Next dialysis will be tomorrow. Discussed with the patient the importance of compliance with medications. Urmila Rutledge MD [facility] # [id number]
[2017-05-09 12:52] LABS: HEPATITIS B SURFACE AG NEGATIVE (NEGATIVE)
[2017-05-09] MEDS ORDERED: Flumazenil 0.1 mg/ml Inj (5ml) IVP ONE ×2 (12:58→13:45)
[2017-05-09] MEDS ORDERED: Naloxone 0.4 mg/ml Inj (Adult) ONE (12:58)
[2017-05-09] MEDS ORDERED: Midazolam 2 MG/2 ML VIAL ONE (12:58)
[2017-05-09 12:59] LABS: HEPATITIS A IGM NEGATIVE (NEGATIVE); HEPATITIS B CORE AB NEGATIVE (NEGATIVE)
[2017-05-09 13:09] LABS: HEPATITIS C ANTIBODY NEGATIVE (NEGATIVE)
[2017-05-09] MEDS ORDERED: Midazolam 2 MG/2 ML VIAL IV ONE ×4 (13:23→13:29)
--- NOTE | 2017-05-09 15:24 | CARD ---
APPROVED REPORT EXAM: Two-dimensional and M-mode echocardiogram with Doppler and color Doppler. INDICATION R/O THROMBUS Reason For Test : Rule out Intracardiac Thrombus. PROCEDURE After obtaining informed consent, patient underwent transesophageal echo in the Echo Lab. Type of Sedation : Conscious Sedation Sedation was administered by DR. Gilliland. Sedation was achieved with Versed and , Fentanyl 4 mg and 100 mcg intravenously. Transesophageal probe was inserted and advanced into esophagus without difficulty. Echo enhancement indication: R/O Septal defect. Echo enhancement agent administered: Agitated Saline The RUY was performed without complications. Throughout the procedure, the blood pressure, pulse oximetry, cardiac rhythm, and rate were monitored. The patient tolerated the procedure without adverse effects. Recovery from conscious sedation was uneventful and vital signs were stable. LEFT VENTRICLE The Left Ventricle is mildly dilated. There is normal left ventricular wall thickness. Left ventricle systolic function is moderately to severely impaired.EF-25% There is moderatel to severe global hypokinesis of the left ventricle. The left ventricular diastolic function is normal. No left ventricle thrombus noted on this study. There is no ventricular septal defect visualized. There is no left ventricular aneurysm. There is no mass noted in the left ventricle. RIGHT VENTRICLE The right ventricle is severely dilated. There is normal right ventricular wall thickness. Systolic function is moderately to severely reduced. ATRIA The left atrium is moderately dilated. The right atrium is severely dilated. The interatrial septum is intact with no evidence for an atrial septal defect. AORTIC VALVE The aortic valve is normal in structure. There is trace aortic regurgitation. There is no aortic valvular stenosis. There is no aortic valvular vegetation. MITRAL VALVE The mitral valve leaflets are thickened. There is no evidence of mitral valve prolapse. There is no mitral valve stenosis. Mitral regurgitation is trace to mild. TRICUSPID VALVE The tricuspid valve is normal in structure. There is mild to moderate tricuspid regurgitation. RVSp can not be obtained accurately b/c TR Jet cofiguration. There is no tricuspid valve prolapse or vegetation. There is no tricuspid valve stenosis. PULMONIC VALVE The pulmonary valve is normal in structure. There is trace pulmonic valvular regurgitation. There is no pulmonic valvular stenosis. GREAT VESSELS The aortic root is normal in size. The ascending aorta is normal in size. The pulmonary artery is normal. The IVC is normal in size and collapses >50% with inspiration. PERICARDIAL EFFUSION There is a trace pericardial effusion. There is no pleural effusion. <Conclusion> Four chamber Dilatation C/W CMP. EF-25% No thrombus noted. Aicd Lead noted in RA/RV There is trace aortic regurgitation. Mitral regurgitation is trace to mild. There is mild to moderate tricuspid regurgitation. RVSP could not be obtained accurately B/c of configuratuin of TR JET. There is trace pulmonic valvular regurgitation. There is a trace pericardial effusion. Velcity in KAE<0.4 m/s no saignificant palque in desceding aorta noted..
--- NOTE | 2017-05-09 16:03 | CON ---
DATE OF CONSULTATION: 05/09/2017 HISTORY OF PRESENT ILLNESS: The patient is a 37-year-old male who presents with marked epistaxis. PAST MEDICAL HISTORY: The patient's past medical history is notable for a dilated cardiomyopathy with an intra left ventricular thrombus seen on echocardiogram. The report from 05/07/2017, revealed an ejection fraction of 26% with global hypokinesis with an apical thrombus seen, which was reported to be small. The patient never took any anticoagulation at home and presents with epistaxis. The patient's past medical history is also notable for hypertension and was treated with carvedilol, lisinopril, and hydralazine, and hydrochlorothiazide. He denies diabetes mellitus. No shortness of breath noted. SOCIAL HISTORY: He denies active smoking now. REVIEW OF SYSTEMS: 14-point review of systems was free of cardiac symptomatology. PHYSICAL EXAMINATION VITAL SIGNS: Blood pressure, on physical exam, was 125/83, the heart rates in the 80s. NECK: Negative JVD. CARDIOPULMONARY: S1, S2. LUNGS: Without rales. EXTREMITIES: Without edema. LABORATORY DATA: Revealed a hemoglobin of 10.0. Chemistries; BUN and creatinine is 25/9.2 with a potassium of 4.7. EKG: EKG reveals normal sinus rhythm with a left anterior christine-block with nonspecific ST-T changes. Dopplers of the lower extremities reveals no DVTs noted. ASSESSMENT: 1. Dilated cardiomyopathy. 2. Questionable apical thrombus. 3. Pulmonary hypertension. 4. Right-sided congestive heart failure. 5. Hypertension. 6. End-stage renal disease. PLAN: Given these findings, we will obtain a RUY to rule out and evaluate the apical thrombus. I have discussed risks and benefits with the patient in detail. All questions answered. The patient is agreeable. I have arranged for a RYU to be done at 12 o'clock today. Sandro Horner MD
--- NOTE | 2017-05-09 22:27 | PN ---
DATE: 05/09/2017 SUBJECTIVE: The patient is seen in room 366, bed 1. The patient is seen again lying in the bed. The patient is comfortable. The patient's 13-system review was negative for further epistaxis, negative for melena, negative for hemoptysis, negative for chest pain, negative for shortness of breath. The patient is still has nasal packing in the right nostril, which shows dry old blood. PHYSICAL EXAMINATION: GENERAL: The patient is still lying in the bed in 366, bed 1. VITAL SIGNS: The patient is afebrile; heart rate is in 70-80s; blood pressure has improved significantly, the systolic blood pressure is around 120s and 130s, diastolic blood pressure is average in high 70s and mid 80s; respiration 22-20; O2 sat is 96-98%. HEENT: Head examination, normocephalic and atraumatic. HEENT examination shows right nostril Rhino Rocket, which is intact in place with dry old blood noted. NECK: No neck rigidity. CHEST: Kyphosis. Positive left upper chest defibrillator noted. LUNGS: Examination shows no rales, crackles or wheezing. CARDIOVASCULAR: S1 and S2, regular rhythm. ABDOMEN: Soft with positive bowel sounds. GENITALIA: Male. RECTAL: Deferred. EXTREMITIES: Shows almost complete resolution of the pitting edema of the lower extremity. MUSCULOSKELETAL: Shows elevated body mass. NEUROLOGIC: Cranial nerves II through XII is intact. Gait examination is independent. VASCULAR: Palpable pulses . PSYCHIATRIC: Negative. LABORATORY DATA: Diagnostic, echocardiogram reviewed. Diagnostic data reviewed. WBC count has normalized. Hemoglobin and hematocrit have come up to 10 and 31. Platelet count is 109,000. Manual platelet count pending. Chemistry shows elevated BUN and creatinine. Sodium, potassium, chloride, and CO2 are within normal limits. LFTs are normal. The patient was evaluated by cardiology, Dr. Horner. His recommendation is that the patient will require a transesophageal echo for evaluation of small apical thrombus, which the patient is awaiting to undergo. IMPRESSION: 1. Severe symptomatic right nostril epistaxis (resolved versus resolving). 2. Acute blood loss anemia. 3. Pancytopenia with leukopenia, anemia and thrombocytopenia. 4. Status post packed red blood cell transfusion x2 and status post platelet transfusion. 5. Status post uncontrolled hypertension secondary to noncompliance of medication and diet. 6. Bilateral lower extremity venous stasis. 7. Dilated cardiomyopathy with decreased ejection fraction. 8. Pulmonary hypertension with elevated right ventricular systolic pressure. 9. Possible small left apical thrombus. 10. Obesity. 11. End-stage renal disease, hemodialysis dependent. 12. Left upper extremity arteriovenous fistula placement. PLAN: The patient is awaiting transesophageal echo, which is ordered for today by Dr. Horner from cardiology. In addition, the patient underwent hemodialysis yesterday. The patient will continue on hemodialysis as per nephrology orders. If the patient's transesophageal echo is within normal limits and if the patient's hemoglobin and hematocrit and hematological parameters stay stable, the patient might be considered for early discharge within next 24 to 48 hours. The patient has been updated about his condition, diagnosis, diagnostic testing and recommendation by all physician involved in the care of the patient. All questions and concerns answered to the patient's satisfaction. Dictated and electronically signed, not read. Signing off Refugio Varner MD Refugio Varner MD
[2017-05-10 01:20] VITALS: RESP 20
[2017-05-10] MEDS ORDERED: Pantoprazole 40 mg EC Tab PO SCH (06:00)
[2017-05-10 07:23] LABS: HEMOGLOBIN 10.1 gm/dL (14.0-18.0); MEAN CELL VOLUME 94.3 fL (80.0-105.0); MEAN CORPUSCULAR HEMOGLOBIN 30.1 pg (25.0-35.0); MEAN PLATELET VOLUME 9.5 fl (7.0-11.0); RBC 3.35 10^6/uL (3.5-6.1); RED CELL DISTRIBUTION WIDTH 16.3 % (11.5-14.5); WHITE BLOOD COUNT 3.8 10^3/ul (4.5-11.0)
[2017-05-10 08:25] LABS: ALB/GLOB RATIO 1.2 (1.1-1.8); ALBUMIN 3.8 g/dL (3.0-4.8); CALCIUM 9.1 mg/dL (8.4-10.5); MAGNESIUM 2.2 mg/dL (1.7-2.2)
--- NOTE | 2017-05-10 09:19 | PN ---
SUBJECTIVE: The patient is seen this morning. He is comfortable lying in the bed. He is waiting to be discharged to go home. He has had procedure yesterday. He had RUY to evaluate for possible blood clot in the heart. PAST MEDICAL HISTORY: The patient has a long history of hypertension and renal failure. The patient is on dialysis. PHYSICAL EXAMINATION: VITAL SIGNS: This morning, his pulse is 85, blood pressure is 128/90, O2 saturation is 99%. HEENT: Head is normocephalic. LUNGS: Clear. HEART: Normal sinus rhythm. S1 and S2 present. No pericardial rub. ABDOMEN: Soft. Liver and spleen nonpalpable. CENTRAL NERVOUS SYSTEM: No focal deficits noted. The patient is waiting to be discharged. MEDICATIONS: He is on medications. His active medicines; he is on clindamycin. The patient is on Coreg 3.125 mg b.i.d., isosorbide mononitrate 30 mg daily. The patient is on pantoprazole 30 mg daily; lisinopril 20 mg daily. The patient is on 2 g sodium, heart healthy diet and he has had his dialysis a couple of days ago. He goes to an outpatient dialysis center in [place], and the patient will be follow up with his physician when he is discharged. CURRENT DIAGNOSIS: Renal failure. His hemoglobin is 10.1. His platelet count is 90,000. He has had a transfusion of platelets in the hospital. He also had blood transfusion because his hemoglobin dropped from 10.2 to 8.6. We will follow up on his hematological studies. His condition is improved. If RUY is negative and hematological studies are stable, patient may be discharged today. Chico Melgar MD [facility]
--- NOTE | 2017-05-10 10:55 | CP.PCM.DIS ---
Addendum entered and electronically signed by Sami Sanchez DO 05/10/17 16:12: Patient seen and examined with Dr. Payton, agree with his exam and discharge summarization. 37 yo M with CHF and ESRD 2/2 uncontrolled HTN 2/2 medication non-compliance. RUY performed by cardio, negative for thrombi. No epistaxis since removal of rhino-rocket by ENT yesterday. Patient to receive today's HD, then be discharged to home, instructed to follow up with PMD within 1 week and to take ALL HTN medications. Original Note: Provider - Provider Date of Admission: 05/08/17 10:04 Attending physician: Refugio Varner MD Consults: Cardiology: Dr. Horner Nephrology: Dr. Rutledge ENT: Dr. An Time Spent in preparation of Discharge (in minutes): 35 Diagnosis - Discharge Diagnosis (1) Epistaxis Status: Acute Priority: High (2) CHF (congestive heart failure) Status: Chronic Priority: Medium (3) HTN (hypertension) Status: Chronic Priority: Medium (4) ESRD (end stage renal disease) Status: Chronic Priority: Medium Hospital Course - Lab Results Lab Results: Most Recent Lab Values WBC 3.8 10^3/ul (4.5-11.0) L 05/10/17 06:30 RBC 3.35 10^6/uL (3.5-6.1) L 05/10/17 06:30 Hgb 10.1 gm/dL (14.0-18.0) L 05/10/17 06:30 Hct 31.6 % (42.0-52.0) L 05/10/17 06:30 MCV 94.3 fL (80.0-105.0) 05/10/17 06:30 MCH 30.1 pg (25.0-35.0) 05/10/17 06:30 MCHC 32.0 g/dl (31.0-37.0) 05/10/17 06:30 RDW 16.3 % (11.5-14.5) H 05/10/17 06:30 Plt Count 90 10^3/uL (120.0-450.0) L 05/10/17 06:30 Manual Plt Count 98 K/mm3 (120-450) L 05/10/17 06:30 MPV 9.5 fl (7.0-11.0) 05/10/17 06:30 Gran % 56.0 % (50.0-68.0) 05/07/17 10:20 Lymph % (Auto) 25.9 % (22.0-35.0) 05/07/17 10:20 [place] % (Auto) 11.4 % (1.0-6.0) H 05/07/17 10:20 Eos % (Auto) 6.2 % (1.5-5.0) H 05/07/17 10:20 Baso % (Auto) 0.5 % (0.0-3.0) 05/07/17 10:20 Gran # 2.27 (1.4-6.5) 05/07/17 10:20 Lymph # 1.1 (1.2-3.4) L 05/07/17 10:20 [place] # 0.5 (0.1-0.6) 05/07/17 10:20 Eos # 0.3 (0.0-0.7) 05/07/17 10:20 Baso # 0.02 K/mm3 (0.0-2.0) 05/07/17 10:20 PT 12.3 Seconds (9.9-11.8) H 05/07/17 10:20 INR 1.14 (0.93-1.08) H 05/07/17 10:20 APTT 28.6 Seconds (23.7-30.8) 05/07/17 10:20 Sodium 138 mmol/L (132-148) 05/10/17 06:30 Potassium 4.6 mmol/L (3.6-5.0) 05/10/17 06:30 Chloride 95 mmol/L (98-107) L 05/10/17 06:30 Carbon Dioxide 30 mmol/L (21-33) 05/10/17 06:30 Anion Gap 18 (10-20) 05/10/17 06:30 BUN 37 mg/dL (7-21) H 05/10/17 06:30 Creatinine 11.3 mg/dL (0.5-1.4) H* 05/10/17 06:30 Est GFR ( Amer) 6 05/10/17 06:30 Est GFR (Non-Af Amer) 5 05/10/17 06:30 Random Glucose 78 mg/dL (70-110) 05/10/17 06:30 Calcium 9.1 mg/dL (8.4-10.5) 05/10/17 06:30 Phosphorus 5.6 mg/dL (2.5-4.5) H 05/10/17 06:30 Magnesium 2.2 mg/dL (1.7-2.2) 05/10/17 06:30 Total Bilirubin 1.3 mg/dL (0.2-1.3) 05/10/17 06:30 Direct Bilirubin 0.6 mg/dL (0.0-0.4) H 05/08/17 06:00 AST 18 U/L (15-59) 05/10/17 06:30 ALT 19 U/L (7-56) 05/10/17 06:30 Alkaline Phosphatase 115 U/L (38-133) 05/10/17 06:30 Total Protein 7.1 g/dL (5.8-8.3) 05/10/17 06:30 Albumin 3.8 g/dL (3.0-4.8) 05/10/17 06:30 Globulin 3.3 gm/dL 05/10/17 06:30 Albumin/Globulin Ratio 1.2 (1.1-1.8) 05/10/17 06:30 Triglycerides 47 mg/dL (35-160) 05/07/17 10:20 Cholesterol 87 mg/dL (130-200) L 05/07/17 10:20 LDL Cholesterol Direct < 30 mg/dL (0-129) 05/07/17 10:20 HDL Cholesterol 52 mg/dL (29-60) 05/07/17 10:20 25-OH Vitamin D Total 18.2 NG/ML (30.0-100.0) L 05/07/17 10:20 Free T4 1.25 ng/dL (0.78-2.19) 05/07/17 10:20 Thyroxine (T4) 6.8 ug/dL (5.5-11.0) 05/07/17 10:20 TSH 3rd Generation 2.82 mIU/mL (0.46-4.68) 05/07/17 10:20 PTH Intact Whole Molec 737 pg/mL (14-64) H 05/08/17 13:24 Hepatitis A IgM Ab Negative (NEGATIVE) 05/09/17 06:30 Hep Bs Antigen Negative (NEGATIVE) 05/09/17 06:30 Hep B Core IgM Ab Negative (NEGATIVE) 05/09/17 06:30 Hepatitis C Antibody Negative (NEGATIVE) 05/09/17 06:30 HIV 1&2 Ag/Ab, 4th Gen Nonreactive (Nonreactive) 05/07/17 10:20 Blood Type O POSITIVE 05/07/17 02:00 Blood Type Confirm O POSITIVE 05/07/17 03:00 Antibody Screen Negative 05/07/17 02:00 Crossmatch See Detail 05/07/17 02:00 BBK History Checked No verified bt 05/07/17 02:00 - Hospital Course Hospital Course: This is a 37 year old black male with PMH ESRD and CHF secondary to uncontrolled HTN who presented to [facility] [place] [place] with complaints of epistaxis of 4 days. While in the ED, patient lost 700 mL of blood; majority from the anterior right nose. Bleeding was stopped after bilateral nasal packing with rhinorocket. Patient revealed he is non compliant with his medications and dialysis appointments. Being that patient is on a MWF dialysis schedule, patient received Saturday and Saturday dialysis treatment while here. Due to discovery of anemia and thrombocytopenia patient was type and screened, given 2 units of PRBCs and 1 unit of platelets 05/08/17: counts have been stable since transfusion , no further transfusions required. While here patient was seen by Cardiology, ENT, and Nephrology. Echocardiogram was ordered for a baseline CHF status since a previous study for comparison was not available. Echo revealed LV apical thrombus for which cardiology was consulted for further evaluation. RUY was performed by cardiology; negative for thrombi. As per ENT, rhinorocket was removed as bleeding had resolved with no further intervention needed. As per nephrology, Lasix and HCTZ were discontinued from patient's home BP medication regimen. Patient will be discharged with scripts for following medications as per primary: Coreg 25 mg PO BID, Isosorbide Mononitrate 30 mg PO qD, Zestril 20 mg PO qD, Hydralazine 25 mg PO TID, HCTZ 25 mg PO qD, Protonix 40 mg PO qD. He was told to fill and take the scripts as prescribed, and to follow up with Dr. Varner as outpatient. He expressed understanding and agreement with these instructions, and all questions were answered to his satisfaction. Patient was then discharged. Patient seen and discussed with Dr. Melgar Discharge Exam - Head Exam Head Exam: ATRAUMATIC, NORMAL INSPECTION, NORMOCEPHALIC - Eye Exam Eye Exam: EOMI, Normal appearance - Respiratory Exam Respiratory Exam: NORMAL BREATHING PATTERN, UNREMARKABLE - Cardiovascular Exam Cardiovascular Exam: REGULAR RHYTHM, +S1, +S2. absent: JVD - GI/Abdominal Exam GI & Abdominal Exam: Normal Bowel Sounds, Unremarkable. absent: Distended, Guarding - Neurological Exam Neurological exam: Alert, Normal Gait, Oriented x3 - Psychiatric Exam Psychiatric exam: Normal Affect, Normal Mood - Skin Skin Exam: Dry, Normal Color Discharge Plan - Follow Up Plan Condition: GOOD Disposition: HOME/ ROUTINE Patient education suggested?: No
--- NOTE | 2017-05-10 15:35 | PN ---
DATE: 05/10/2017 SUBJECTIVE: The patient is without shortness of breath at rest. PHYSICAL EXAMINATION GENERAL: Text. VITAL SIGNS: Blood pressure is 116/86 and the heart rate in the 80s. CARDIOPULMONARY: S1 and S2. LUNGS: Without rales. EXTREMITIES: Without edema. RUY reveals no thrombus in the LV. LABORATORY DATA: Hemoglobin is 10.1. Chemistries; BUN and creatinine is 37 and 11.3. IMPRESSION: 1. Dilated cardiomyopathy. 2. No LV thrombus. 3. Epistaxis. 4. History of pulmonary retention. 5. End-stage renal disease. PLAN: Given these findings, the patient does not need to be on anticoagulation given his lack of LV thrombus. The patient has had a questionable complete workup for his cardiomyopathy. The patient wants to continue his care here, We will arrange for an outpatient stress test to rule out coronary disease. Sandro Horner MD
--- NOTE | 2017-05-10 15:39 | PN ---
DATE: 05/10/2017 SUBJECTIVE: The patient is seen, sitting in bed. He is awake, he is alert. He is comfortable. He denies any headache, dizziness. His nasal packing has been removed. PHYSICAL EXAMINATION: VITAL SIGNS: Blood pressure 116/86, heart 89, respiratory rate 20, temperature 98.7. HEENT: Normocephalic, atraumatic. NECK: Supple. No JVD. LUNGS: Bilateral equal air entry. CARDIAC: S1, S2, regular rate and rhythm. No murmur. No rubs. ABDOMEN: Obese, distended, soft, nontender. Bowel sounds present. EXTREMITIES: No extremity edema. LABORATORY DATA: Hemoglobin 10, potassium 4.6, creatinine 11.3, magnesium 2.2, phosphorus 5.6. CURRENT MEDICATIONS: Clindamycin, carvedilol 3.125 mg b.i.d., Imdur, Protonix, Tylenol, lisinopril 20 mg, Zofran. ASSESSMENT: 1. Status post epistaxis, significant blood loss. 2. Anemia, multifactorial. 3. History of hypertension. 4. End-stage renal disease. PLAN: 1. Off hydrochlorothiazide, Lasix. 2. Coreg decreased to 3.125 b.i.d. 3. Okay to continue lisinopril 20 mg daily. 4. Fine tuning of blood pressure medications as an outpatient. 5. Dialysis today. Urmila Rutledge MD
[2017-05-10 16:11] VITALS: PULSE 91; TEMP 97.6; O2SAT 98
[2017-05-10 18:01] VITALS: BP 116/86
== END 2017-05-10 19:00 | disposition home or self-care (01) | DRG 150 ==
LOC: ED 01:24 → ERH 03:52 → 3RNO 05:39 → OBSVTOIN 05-08 10:04
PROVIDERS: ADMIT Internal Medicine; ATTEND Internal Medicine
PROC: 30233R1 Transfusion of Nonautologous Platelets into Peripheral Vein, Percutaneous Approach (ICD-10-PCS; 2017-05-08)
PROC: 30233N1 Transfusion of Nonautologous Red Blood Cells into Peripheral Vein, Percutaneous Approach (ICD-10-PCS; 2017-05-08)
PROC: B24BZZ4 Ultrasonography of Heart with Aorta, Transesophageal (ICD-10-PCS; principal; 2017-05-09 13:00)
DX: R04.0 Epistaxis (principal); N18.6 End stage renal disease; I13.2 Hypertensive heart and chronic kidney disease with heart failure and with stage 5 chronic kidney disease, or end stage renal disease; D61.818 Other pancytopenia; I42.0 Dilated cardiomyopathy; E11.22 Type 2 diabetes mellitus with diabetic chronic kidney disease; I43 Cardiomyopathy in diseases classified elsewhere; D62 Acute posthemorrhagic anemia; I50.20 Unspecified systolic (congestive) heart failure; G47.33 Obstructive sleep apnea (adult) (pediatric); D63.1 Anemia in chronic kidney disease; I27.2 Other secondary pulmonary hypertension; E55.9 Vitamin D deficiency, unspecified; E66.9 Obesity, unspecified; E83.39 Other disorders of phosphorus metabolism; I87.2 Venous insufficiency (chronic) (peripheral); Z91.19 Patient's noncompliance with other medical treatment and regimen; Z95.810 Presence of automatic (implantable) cardiac defibrillator; Z99.2 Dependence on renal dialysis; Z87.891 Personal history of nicotine dependence; Z91.14 Patient's other noncompliance with medication regimen

== ENCOUNTER 2017-06-01 17:25 | Inpatient (IN) | payer MEDICAID, MEDICARE, OTHER ==
--- NOTE | 2017-06-01 17:57 | ED PDOC ---
Arrival/HPI - General Chief Complaint: Chest Pain Time Seen by Provider: 06/01/17 17:35 Historian: Patient - History of Present Illness Narrative History of Present Illness (Text): 06/01/17 17:40 a 37 year old male, with a history of CHF, hemodialysis (MWF), and hypertension , presents to the emergency department complaining of chest pain, began about 7 days ago, but is now worsening. He reports the chest pain consists of heart flutters and he feels something going "up & down". The patient also reports a boil on the lower buttock that he had operated on 5 months ago. The patient is claiming that the boil grew back and he states it bleeds from time to time. The patient denies any fever, nausea, vomiting, chills, cough, headaches, vision changes, hearing changes, hematuria, chills, diaphoresis or any other complaints at this time. Time/Duration: 1 week Symptom Onset: Sudden Symptom Course: Unchanged Activities at Onset: Light Context: Home Past Medical History - Provider Review Nursing Documentation Reviewed: Yes - Infectious Disease Hx of Infectious Diseases: None - Cardiac Hx Congestive Heart Failure: Yes Hx Hypertension: Yes Other/Comment: AICD - Pulmonary Hx Sleep Apnea: Yes - Neurological Hx Neurological Disorder: No - HEENT Hx HEENT Disorder: No - Renal Hx Dialysis: Yes (MWF) - Endocrine/Metabolic Hx Endocrine Disorders: No - Hematological/Oncological Hx Blood Disorders: No - Integumentary Hx Dermatological Disorder: No - Musculoskeletal/Rheumatological Hx Musculoskeletal Disorders: No Hx Falls: No - Gastrointestinal Hx Gastrointestinal Disorders: No - Genitourinary/Gynecological Hx Genitourinary Disorders: No - Psychiatric Hx Psychophysiologic Disorder: No Hx Substance Use: No - Surgical History Other/Comment: L AV shunt - Anesthesia Hx Anesthesia: Yes Hx Anesthesia Reactions: No Hx Malignant Hyperthermia: No Family/Social History - Physician Review Nursing Documentation Reviewed: Yes Family/Social History: No Known Family HX Smoking Status: Unknown If Ever Smoked Hx Alcohol Use: No Hx Substance Use: No Allergies/Home Meds Allergies/Adverse Reactions: Allergies heparin Allergy (Verified 05/07/17 01:40) ANAPHYLAXIS PORK Allergy (Verified 05/07/17 01:40) ANAPHYLAXIS shellfish derived Adverse Reaction (Severe, Verified 05/10/17 11:54) RASH hives shellfish Allergy (Mild, Uncoded 05/10/17 11:54) RASH and hives Review of Systems - Review of Systems Constitutional: absent: Fevers, Other (chills) Eyes: absent: Vision Changes ENT: absent: Hearing Changes Respiratory: absent: Cough Cardiovascular: Chest Pain, Palpitations Gastrointestinal: absent: Nausea, Vomiting Genitourinary Male: absent: Hematuria Musculoskeletal: absent: Back Pain Skin: Other (Boil on right lower buttock ) Neurological: absent: Headache Endocrine: absent: Diaphoresis Physical Exam - Physical Exam Narrative Physical Exam (Text): 06/01/17 17:45 Head: Atraumatic. Normocephalic. Eyes: PERRL. EOMI. Conjunctivae are not pale. ENT: Mucous membranes are moist and intact. Oropharynx is clear and symmetric. Neck: Supple. Full ROM. Positive JVD. No lymphadenopathy. Cardiovascular: Regular rate. Regular rhythm. Systolic murmur. Distal pulses intact. Pulmonary/Chest: Tachypneic. Some rales at bases. Abdominal: Soft and non-distended. There is no tenderness. No rebound, guarding, or rigidity. No organomegaly. Good bowel sounds. Rectal: patient with firm, indurated mass noted to right buttock that extends to midline with surrounding erythema or edema, does not extend to rectum. Back: No CVA tenderness. Extremities: Bilateral lower extremity edema. No cyanosis. No clubbing. Full range of motion in all extremities. No calf tenderness. Skin: Skin is warm and dry. Left buttock erythema as noted above. Neurological: Alert, awake, and oriented to person, place, time, and situation. Normal speech. Motor and sensory exam intact. Psychiatric: Good eye contact. Normal interaction, affect, and behavior. Vital Signs Reviewed: Yes Vital Signs Temp Pulse Resp BP Pulse Ox 06/01/17 22:37 100 H 17 98 06/01/17 22:12 100 H 18 164/99 H 96 06/01/17 21:15 98.7 F 95 H 21 149/107 H 95 06/01/17 19:03 89 18 152/98 H 98 06/01/17 17:33 98.6 F 99 H 18 158/116 H 98 Temperature: Afebrile Blood Pressure: Hypertensive Pulse: Tachycardic Respiratory Rate: Normal Appearance: Positive for: Well-Appearing, Non-Toxic, Comfortable Pain Distress: None Mental Status: Positive for: Alert and Oriented X 3 Medical Decision Making ED Course and Treatment: 06/01/17 17:58 Impression: A 37 year old male with chest pain. Differential Diagnosis included but are not limited to: CAD vs. Perirectal abscess vs. sepsis vs. CHF Plan: -- EKG -- Abdominal & Pelvis CT -- Chest X-ray -- Labs -- Accucheck -- Reassess and disposition Prior Visits: Notes and results from previous visits were reviewed. The patient was last seen in the emergency department on 05/08/17 for epistaxis. The patient was discharged home. Progress Notes: Patient reports episodic chest discomfort for several weeks, but it is not exertional, no associated sob. EKG is unchanged from previous. Currently no chest pain. Troponin is elevated, although given lack of chest pain currently and no acute changes on EKG, I suspect this is possibly from renal etiology. Patient states "at [place] they always tell me my troponin is elevated". With serial exams he remains comfortable with no sob or chest pain. He does have history of cardiomyopathy. CXR suggestive of some pulmonary vascular congestion although he is not hypoxic or sob. He does have pain in his right buttock. CT suggestive of cellulitis although patient complains of worsening pain, I suspect possible early abscess. CT Abdomen and Pelvis Without Intravenous Contrast 06/01/17 20:16 COMPARISON:No relevant prior studies available. FINDINGS: Limitations: Lack of intravenous contrast. Lower thorax: Moderate to markedly cardiomegaly. Pacemaker leads. Mild peripheral atelectasis/scarring. Small RIGHT pleural effusion. ABDOMEN: Liver: Unremarkable. Gallbladder and bile ducts: No calcified stones. No ductal dilation. Pancreas: Unremarkable. No ductal dilation. Spleen: Mild splenomegaly. Adrenals: No mass. Kidneys and ureters: Atrophy of kidneys. No renal calculi. Probable RIGHT renal cyst. No hydronephrosis. Stomach and bowel: Segmental areas of underdistention of colon. No definite mural thickening. No obstruction. Appendix: No findings to suggest acute appendicitis. PELVIS: Bladder: Incomplete distention, limiting evaluation. Borderline bladder wall thickening, 4-5 mm. Mild haziness about bladder. No stones. Reproductive: Mildly enlarged prostate. ABDOMEN and PELVIS: Intraperitoneal space: No significant fluid collection. No free air. Bones/joints: No acute fracture. Soft tissues: Mild stranding within throughout subcutaneous tissues. Small umbilical hernia containing fat. 1 8 x 1.2 x 3.1 cm focal ill-defined area of increased attenuation (slightly higher than fluid attenuation) within RIGHT gluteal region adjacent to fold. Mild stranding within adjacent fat. Vasculature: Unremarkable. No aneurysm. Lymph nodes: No pathologically enlarged lymph nodes. IMPRESSION: 1. Inflammation within RIGHT gluteal region. Phlegmon/early abscess not excluded due to lack of intravenous contrast. 2. Possible cystitis. Correlate with urinalysis. 3. Incidental/non-acute findings are described above. Patient requests Dr. Varner to be his PMD for recommended admission. Case d/w Dr. Murphy, accepts admission for Dr. Varner. On re-exam, he is comfortable. IV antibiotics ordered. Currently afebrile with unremarkable lactic. Will consult cardiology given elevated troponin and hx of HTN, cardiomyopathy. - Lab Interpretations Microbiology Results: Microbiology Results 06/01/17 18:30 Blood Blood Culture - Preliminary NO GROWTH AFTER 4 DAYS 06/01/17 18:00 Blood Blood Culture - Preliminary NO GROWTH AFTER 4 DAYS Lab Results: 06/01/17 18:00 06/01/17 18:00 Lab Results 06/01/17 18:08: POC Glucose (mg/dL) 89 06/01/17 18:00: Sodium 139, Chloride 95 L, Potassium 3.9, Carbon Dioxide 32, Anion Gap 16, BUN 21, Creatinine 8.5 H*, Est GFR ( Amer) 9, Est GFR (Non- Af Amer) 7, Random Glucose 79, Calcium 9.4, Total Bilirubin 1.8 H, AST 20, ALT 25, Alkaline Phosphatase 130, Lactate Dehydrogenase 357, Total Creatine Kinase 108, Troponin I 0.25 H*, Total Protein 7.5, Albumin 4.1, Globulin 3.4, Albumin/ Globulin Ratio 1.2 06/01/17 18:00: pO2 41, VBG pH 7.37, VBG pCO2 60.0, VBG HCO3 34.7 H, VBG Total CO2 36.5 H, VBG O2 Sat (Calc) 82.7 H, VBG Base Excess 7.7 H, VBG Potassium 3.9, Sodium 138.0, Chloride 99.0, Glucose 78, Lactate 1.2, FiO2 21.0, Venous Blood Potassium 3.9 06/01/17 18:00: PT 12.0 H, INR 1.11 H, APTT 29.2 06/01/17 18:00: WBC 3.8 L, RBC 3.59, Hgb 11.0 L, Hct 34.2 L, MCV 95.3, MCH 30.6 , MCHC 32.2, RDW 14.5, Plt Count 82 L, MPV 10.1, Gran % 63.7, Lymph % (Auto) 20.8 L, [place] % (Auto) 10.5 H, Eos % (Auto) 4.5, Baso % (Auto) 0.5, Gran # 2.42, Lymph # 0.8 L, [place] # 0.4, Eos # 0.2, Baso # 0.02 - RAD Interpretation Radiology Orders: 06/01/17 17:55 ABD & PELVIS W/O PO OR IV CONT [CT] Stat CHEST PORTABLE [RAD] Stat - EKG Interpretation EKG Interpretation (Text): 06/01/17 22:50 EKG normal sinus rhythm with sinus arrhychtmia, left anteroir fascicular block, st t wave abnormality in anterior and lateral leads Interpreted by ED Physician: Yes Type: 12 lead EKG Comparison: Similar to previous EKG - Medication Orders Current Medication Orders: Acetaminophen (Tylenol 325mg Tab) 650 mg PO Q4H PRN PRN Reason: TEMP>=99.5F Last Admin: 06/05/17 20:57 Dose: 650 mg Re-Assess: MAR Pain/Vitals Document 06/05/17 21:57 AP (Rec: 06/05/17 22:23 AP [facility] [id number] Vitals Temperature (97.6 F-99.6 F) 100.7 F Temperature Source Oral Meropenem 500 mg/ Sodium (Chloride) 100 mls @ 100 mls/hr IVPB Q12 REED PRN Reason: Protocol Stop: 06/11/17 06:57 Last Admin: 06/05/17 21:04 Dose: 100 mls/hr Doxycycline Hyclate 100 mg/ (Sodium Chloride) 100 mls @ 100 mls/hr IVPB Q12 REED PRN Reason: Protocol Last Admin: 06/05/17 21:04 Dose: 100 mls/hr Milrinone Lactate/Dextrose (Primacor 20mg/100ml D5w) 100 mls @ 7.28 mls/hr IV .[id number] PRN; Protocol; 0.2 MCG/KG/MIN PRN Reason: TITRATE PER MD ORDER Last Titration: 06/06/17 03:35 Dose: 0.2 mcg/kg/min, 7.28 mls/hr Ibuprofen (Motrin Tab) 400 mg PO Q6H PRN PRN Reason: Fever >100.4 F Last Admin: 06/06/17 00:32 Dose: 400 mg Re-Assess: [facility] Pain/Vitals Document 06/06/17 01:32 AP (Rec: 06/06/17 03:41 AP [facility] [id number] Pain Reassessment Is This A Pain ReAssessment? No Lisinopril (Zestril) 20 mg PO DAILY [facility] Last Admin: 06/05/17 11:10 Dose: 20 mg Metoprolol Tartrate (Lopressor) 50 mg PO BID [facility] Last Admin: 06/05/17 17:11 Dose: 50 mg Oxycodone/Acetaminophen (Percocet 5/325 Mg Tab) 1 tab PO Q6H PRN PRN Reason: Pain, severe (8-10) Stop: 06/06/17 17:17 Last Admin: 06/05/17 15:13 Dose: 1 tab Re-Assess: [facility] Pain Assessment Document 06/05/17 16:13 TRICIA (Rec: 06/05/17 17:10 TRICIA [facility] [id number]) Pain Reassessment Is this a pain reassessment? Yes Presence of Pain Presence of Pain No Pain Scale Used Pain Scale Used Numeric Pantoprazole Sodium (Protonix Ec Tab) 20 mg PO 0600 [facility] Last Admin: 06/06/17 05:22 Dose: 20 mg Discontinued Medications Acetaminophen (Tylenol 325mg Tab) 650 mg PO Q4H PRN PRN Reason: Fever >100.4 F Last Admin: 06/04/17 08:33 Dose: 650 mg Alprazolam (Xanax) 0.5 mg PO STAT STA PRN Reason: Protocol Stop: 06/06/17 01:31 Last Admin: 06/06/17 01:38 Dose: 0.5 mg Re-Assess: Reassess Psych Meds Document 06/06/17 02:38 AP (Rec: 06/06/17 02:44 AP [facility] [id number]) Reassess Psych Med Effective Bupivacaine HCl/Epinephrine Bitart (Marcaine-Epi 0.25%) 30 ml IJ ONCE ONE Stop: 06/02/17 11:13 Last Admin: 06/02/17 11:25 Dose: 30 ml Carvedilol (Coreg) 25 mg PO BID [facility] Last Admin: 06/04/17 18:22 Dose: 25 mg Darbepoetin Francisco (Aranesp) 60 mcg IV ONCE ONE Stop: 06/05/17 06:01 Last Admin: 06/05/17 14:42 Dose: 60 mcg Home Med (*Refrigerator Open) Confirm Administered Dose 1 unit XX .STK-MED ONE Stop: 06/05/17 14:42 Hydralazine HCl (Apresoline) 25 mg PO TID [facility] Last Admin: 06/03/17 20:17 Dose: 25 mg Hydrochlorothiazide (Hydrodiuril) 25 mg PO DAILY [facility] Last Admin: 06/03/17 18:08 Dose: Hydromorphone HCl (Dilaudid) 2 mg PO Q4H REED Hydromorphone HCl (Dilaudid) 2 mg PO Q4H PRN PRN Reason: Pain, moderate (4-7) Last Admin: 06/02/17 15:21 Dose: 2 mg Re-Assess: [facility] Pain Assessment Document 06/02/17 16:21 JANETH (Rec: 06/02/17 17:45 JANETH [id number]) Pain Reassessment Is this a pain reassessment? Yes Sleep Is patient sleeping during reassessment? No Presence of Pain Presence of Pain No Ceftriaxone Sodium (Rocephin 1 Gram Ivpb) 1 gm in 100 mls @ 200 mls/hr IVPB ONCE STA PRN Reason: Protocol Stop: 06/01/17 20:54 Last Admin: 06/01/17 20:25 Dose: 200 mls/hr Vancomycin HCl (Vancomycin 1gm) 1 gm in 250 mls @ 167 mls/hr IVPB STAT STA PRN Reason: Protocol Stop: 06/01/17 22:06 Last Admin: 06/01/17 21:20 Dose: 167 mls/hr Cefepime HCl (Maxipime 1gm) 1 gm in 100 mls @ 100 mls/hr IVPB Q24H REED PRN Reason: Protocol Stop: 06/11/17 11:01 Last Admin: 06/03/17 10:05 Dose: 100 mls/hr Vancomycin HCl (Vancomycin 500mg In Ns) 500 mg in 100 mls @ 200 mls/hr IVPB STAT STA PRN Reason: Protocol Stop: 06/02/17 11:18 Last Admin: 06/02/17 11:26 Dose: 200 mls/hr Milrinone Lactate/Dextrose (Primacor 20mg/100ml D5w) 100 mls @ 7.28 mls/hr IV .[id number] PRN; Protocol; 0.2 MCG/KG/MIN PRN Reason: TITRATE PER MD ORDER Last Admin: 06/04/17 00:29 Dose: 0.2 mcg/kg/min, 7.28 mls/hr Linezolid (Zyvox 600mg/300ml D5w) 600 mg in 300 mls @ 200 mls/hr IVPB Q12 REED PRN Reason: Protocol Stop: 06/11/17 10:01 Last Admin: 06/04/17 21:36 Dose: 200 mls/hr Vancomycin HCl 2 gm/ Sodium (Chloride) 500 mls @ 170 mls/hr IVPB ONCE ONE PRN Reason: Protocol Stop: 06/04/17 09:53 Last Admin: 06/04/17 11:43 Dose: 170 mls/hr Milrinone Lactate/Dextrose (Primacor 20mg/100ml D5w) 100 mls @ 13.65 mls/hr IV .Q7H20M PRN; Protocol; 0.375 MCG/KG/MIN PRN Reason: TITRATE PER MD ORDER Last Admin: 06/05/17 08:58 Dose: 0.375 mcg/kg/min, 13.65 mls/hr Isosorbide Mononitrate (Imdur) 30 mg PO DAILY [facility] Last Admin: 06/03/17 18:08 Dose: Metoprolol Tartrate (Lopressor) 5 mg IVP STAT STA Stop: 06/06/17 02:04 Last Admin: 06/06/17 02:09 Dose: 5 mg Metoprolol Tartrate (Lopressor) Confirm Administered Dose 5 mg IVP .STK-MED ONE Stop: 06/06/17 02:09 Last Admin: 06/06/17 02:44 Dose: Metronidazole (Flagyl) 500 mg PO Q8 REED PRN Reason: Protocol Stop: 06/11/17 14:01 Last Admin: 06/03/17 22:14 Dose: 500 mg Milrinone Lactate/Dextrose (Primacor 1mg/Ml Inj (10ml)) 6 mg IVP ONCE ONE Stop: 06/03/17 11:28 Last Admin: 06/03/17 12:16 Dose: 6 mg Oxycodone HCl (Oxycodone Immediate Release Tab) 5 mg PO ONCE ONE Stop: 06/02/17 02:41 Last Admin: 06/02/17 02:47 Dose: 5 mg Re-Assess: [facility] Pain Assessment Document 06/02/17 03:47 AP (Rec: 06/02/17 04:42 AP [facility] [id number] Pain Reassessment Is this a pain reassessment? Yes Presence of Pain Presence of Pain No Oxycodone/Acetaminophen (Percocet 5/325 Mg Tab) 1 tab PO STAT STA Stop: 06/01/17 21:06 Last Admin: 06/01/17 21:23 Dose: 1 tab Re-Assess: [facility] Pain Assessment Document 06/01/17 23:33 AP (Rec: 06/01/17 23:33 AP [facility] [id number] Pain Reassessment Is this a pain reassessment? Yes Presence of Pain Presence of Pain No Oxycodone/Acetaminophen (Percocet 10/325 Mg Tab) 1 tab PO Q4H PRN PRN Reason: Pain, moderate (4-7) Last Admin: 06/02/17 10:29 Dose: 1 tab Re-Assess: [facility] Pain Assessment Document 06/02/17 11:29 JANETH (Rec: 06/02/17 17:47 JANETH [id number]) Pain Reassessment Is this a pain reassessment? Yes Sleep Is patient sleeping during reassessment? Yes Tramadol HCl (Ultram) 50 mg PO Q6H REED Last Admin: 06/03/17 04:35 Dose: Not Given Non-Admin Reason: Patient Asleep Tramadol HCl (Ultram) 50 mg PO Q6H PRN PRN Reason: Pain, moderate (4-7) Last Admin: 06/03/17 22:14 Dose: 50 mg Re-Assess: [facility] Pain Assessment Document 06/03/17 23:14 CDL (Rec: 06/04/17 00:18 CDL [facility] [id number] Pain Reassessment Is this a pain reassessment? Yes Sleep Is patient sleeping during reassessment? No Presence of Pain Presence of Pain No - PA / SILO ERECTOR / Resident Statement MD/DO has reviewed & agrees with the documentation as recorded. - Scribe Statement The provider has reviewed the documentation as recorded by the Mickibjulio c Vasquez Provider Scribe Attestation: All medical record entries made by the Mickibe were at my direction and personally dictated by me. I have reviewed the chart and agree that the record accurately reflects my personal performance of the history, physical exam, medical decision making, and the department course for this patient. I have also personally directed, reviewed, and agree with the discharge instructions and disposition. Disposition/Present on Arrival - Present on Arrival Any Indicators Present on Arrival: No History of DVT/PE: No History of Uncontrolled Diabetes: No Urinary Catheter: No History of Decub. Ulcer: No History Surgical Site Infection Following: None - Disposition Have Diagnosis and Disposition been Completed?: Yes Diagnosis: Chest pain, Cellulitis of buttock, right Disposition: HOSPITALIZED Disposition Time: 21:50 Patient Plan: Admission Patient Problems: Current Active Problems Problem Status Onset Cellulitis of buttock, right Acute Chest pain Acute Condition: SERIOUS
[2017-06-01 18:28] LABS: VENOUS BLOOD GAS BASE EXCESS 7.7 mmol/L (0.0-2.0); VENOUS BLOOD PH 7.37 (7.32-7.43)
[2017-06-01 18:32] LABS: BASO # 0.02 K/mm3 (0.0-2.0); BASO % 0.5 % (0.0-3.0); EOS # 0.2 (0.0-0.7); EOS % 4.5 % (1.5-5.0); GRAN # 2.42 (1.4-6.5); GRAN % 63.7 % (50.0-68.0); HEMATOCRIT 34.2 % (42.0-52.0); LYMPH # 0.8 (1.2-3.4); LYMPH % 20.8 % (22.0-35.0); MEAN CELL VOLUME 95.3 fl (80.0-105.0); MEAN CORPUSCULAR HEMOGLOBIN 30.6 pg (25.0-35.0); MEAN CORPUSCULAR HGB CONC 32.2 g/dl (31.0-37.0); MEAN PLATELET VOLUME 10.1 fl (7.0-11.0); MONO # 0.4 (0.1-0.6); MONO % 10.5 % (1.0-6.0); RED CELL DISTRIBUTION WIDTH 14.5 % (11.5-14.5); WHITE BLOOD COUNT 3.8 10^3/ul (4.5-11.0)
[2017-06-01 18:37] LABS: ALB/GLOB RATIO 1.2 (1.1-1.8); BILIRUBIN,TOTAL 1.8 mg/dL (0.2-1.3); CALCIUM 9.4 mg/dL (8.4-10.5); POTASSIUM 3.9 mmol/L (3.6-5.0); TOTAL PROTEIN 7.5 g/dL (5.8-8.3)
[2017-06-01 18:39] LABS: INR 1.11 (0.93-1.08); PARTIAL THROMBOPLASTIN TIME 29.2 Seconds (23.7-30.8)
[2017-06-01 18:54] LABS: TROPONIN I 0.25 ng/mL
--- NOTE | 2017-06-01 20:14 | CT ---
EXAM: CT Abdomen and Pelvis Without Intravenous Contrast CLINICAL HISTORY: 37 years old, male; Screening exam; Other: Eval for perirectal abscess; Additional info: Eval for perirectal abscess TECHNIQUE: Axial computed tomography images of the abdomen and pelvis without intravenous contrast. All CT scans at this facility use one or more dose reduction techniques, viz.: automated exposure control; ma/kV adjustment per patient size (including targeted exams where dose is matched to indication; i.e. head); or iterative reconstruction technique. Coronal and sagittal reformatted images were created and reviewed. COMPARISON: No relevant prior studies available. FINDINGS: Limitations: Lack of intravenous contrast. Lower thorax: Moderate to markedly cardiomegaly. Pacemaker leads. Mild peripheral atelectasis/scarring. Small RIGHT pleural effusion. ABDOMEN: Liver: Unremarkable. Gallbladder and bile ducts: No calcified stones. No ductal dilation. Pancreas: Unremarkable. No ductal dilation. Spleen: Mild splenomegaly. Adrenals: No mass. Kidneys and ureters: Atrophy of kidneys. No renal calculi. Probable RIGHT renal cyst. No hydronephrosis. Stomach and bowel: Segmental areas of underdistention of colon. No definite mural thickening. No obstruction. Appendix: No findings to suggest acute appendicitis. PELVIS: Bladder: Incomplete distention, limiting evaluation. Borderline bladder wall thickening, 4-5 mm. Mild haziness about bladder. No stones. Reproductive: Mildly enlarged prostate. ABDOMEN and PELVIS: Intraperitoneal space: No significant fluid collection. No free air. Bones/joints: No acute fracture. Soft tissues: Mild stranding within throughout subcutaneous tissues. Small umbilical hernia containing fat. 1 8 x 1.2 x 3.1 cm focal ill-defined area of increased attenuation (slightly higher than fluid attenuation) within RIGHT gluteal region adjacent to fold. Mild stranding within adjacent fat. Vasculature: Unremarkable. No aneurysm. Lymph nodes: No pathologically enlarged lymph nodes. IMPRESSION: 1. Inflammation within RIGHT gluteal region. Phlegmon/early abscess not excluded due to lack of intravenous contrast. 2. Possible cystitis. Correlate with urinalysis. 3. Incidental/non-acute findings are described above.
[2017-06-01] MEDS ORDERED: cefTRIAXone 1 gm 1 GM/100 ML BAG IVPB STA (20:25)
[2017-06-01] MEDS ORDERED: Vancomycin 1gm in NS 250ml 1 GM/250 ML BAG IVPB STA (20:37)
[2017-06-01] MEDS ORDERED: Oxycodone/Acetaminophen 5/325 mg Tab PO STA (21:05)
[2017-06-02 00:02] VITALS: BMI 33.3
[2017-06-02] MEDS ORDERED: oxyCODONE 5 mg Immediate Release Tab PO ONE (02:40)
[2017-06-02 04:24] LABS: HEMATOCRIT 34.2 % (42.0-52.0); MEAN CELL VOLUME 94.7 fl (80.0-105.0); MEAN CORPUSCULAR HEMOGLOBIN 30.7 pg (25.0-35.0); MEAN CORPUSCULAR HGB CONC 32.5 g/dl (31.0-37.0); MEAN PLATELET VOLUME 10.3 fl (7.0-11.0); RED CELL DISTRIBUTION WIDTH 14.5 % (11.5-14.5); WHITE BLOOD COUNT 4.4 10^3/ul (4.5-11.0)
[2017-06-02 04:37] LABS: ALB/GLOB RATIO 1.1 (1.1-1.8); BILIRUBIN,TOTAL 1.4 mg/dL (0.2-1.3); CALCIUM 9.3 mg/dL (8.4-10.5); MAGNESIUM 2.2 mg/dL (1.7-2.2); PHOSPHOROUS 4.8 mg/dL (2.5-4.5); POTASSIUM 4.2 mmol/L (3.6-5.0); TOTAL PROTEIN 7.3 g/dL (5.8-8.3)
[2017-06-02 05:16] LABS: TROPONIN I 0.25 ng/mL
--- NOTE | 2017-06-02 10:03 | RAD ---
HISTORY: chest pain COMPARISON: 05/07/2017 FINDINGS: LUNGS: New opacity at right lung base. Rule out early pneumonia. PLEURA: No significant pleural effusion identified, no pneumothorax apparent. CARDIOVASCULAR: Cardiomegaly. AICD. No significant congestive change. OSSEOUS STRUCTURES: No significant abnormalities. VISUALIZED UPPER ABDOMEN: Normal. OTHER FINDINGS: None. IMPRESSION: New opacity at right lung base. Rule out pneumonia. Followup advised.
[2017-06-02] MEDS ORDERED: Oxycodone/Acetaminophen 10/325 mg Tab PO PRN (10:11)
[2017-06-02] MEDS ORDERED: Vancomycin 500mg in NS 500 MG/100 ML BAG IVPB STA (10:49)
[2017-06-02] MEDS ORDERED: Lidocaine 1%/Epinephrine 1:100000 30 ml vial IJ ONE (10:49)
--- NOTE | 2017-06-02 10:57 | CARD ---
APPROVED REPORT EKG Measurement Heart [id number] MD [id number] <Conclusion> Normal sinus rhythm with sinus arrhythmia Pulmonary disease pattern Left anterior fascicular block Nonspecific T wave abnormality Prolonged QT Abnormal ECG
[2017-06-02] MEDS ORDERED: Bupivacaine-Epi 0.25%-1:200,000 PF Inj IJ ONE (11:12)
--- NOTE | 2017-06-02 12:06 | CP.PCM.CON ---
<Ventura Baptiste Rachell - Last Filed: 06/02/17 12:22> History of Present Illness - History of Present Illness History of Present Illness: Gen Sx: Dr Garcia 37M w/ ESRD on HD presents with right gluteal abscess x 2 weeks. Pt states it was recently drained at [facility] but it has since then returned. Pain is inhibiting ADL's and job productivity. Pt denies fevers, chills, n/v. Review of Systems - Review of Systems All systems: reviewed and no additional remarkable complaints except (as per hpi ) Past Patient History - Infectious Disease Hx of Infectious Diseases: None - Past Social History Smoking Status: Former Smoker - CARDIAC Hx Congestive Heart Failure: Yes Hx Hypertension: Yes Other/Comment: AICD - PULMONARY Hx Sleep Apnea: Yes - NEUROLOGICAL Hx Neurological Disorder: No - HEENT Hx HEENT Problems: No - RENAL Date of Last Dialysis Treatment: 05/31/17 - ENDOCRINE/METABOLIC Hx Endocrine Disorders: No - HEMATOLOGICAL/ONCOLOGICAL Hx Blood Disorders: No - INTEGUMENTARY Hx Dermatological Problems: No - MUSCULOSKELETAL/RHEUMATOLOGICAL Hx Falls: No - GASTROINTESTINAL Hx Gastrointestinal Disorders: No - GENITOURINARY/GYNECOLOGICAL Hx Genitourinary Disorders: No - PSYCHIATRIC Hx Substance Use: Yes (Marijuana in the past) - SURGICAL HISTORY Other/Comment: L AV shunt - ANESTHESIA Hx Anesthesia: Yes Hx Anesthesia Reactions: No Hx Malignant Hyperthermia: No Meds Allergies/Adverse Reactions: Allergies Allergy/AdvReac Type Severity Reaction Status Date / Time heparin Allergy ANAPHYLAXIS Verified 05/07/17 01:40 PORK Allergy ANAPHYLAXIS Verified 05/07/17 01:40 shellfish derived AdvReac Severe RASH Verified 05/10/17 11:54 shellfish Allergy Mild RASH Uncoded 05/10/17 11:54 - Medications Medications: Current Medications Carvedilol (Coreg) 25 mg PO BID [facility] Last Admin: 06/02/17 10:01 Dose: 25 mg Hydralazine HCl (Apresoline) 25 mg PO TID [facility] Last Admin: 06/02/17 10:00 Dose: 25 mg Hydrochlorothiazide (Hydrodiuril) 25 mg PO DAILY [facility] Last Admin: 06/02/17 10:01 Dose: 25 mg Hydromorphone HCl (Dilaudid) 2 mg PO Q4H PRN PRN Reason: Pain, moderate (4-7) Cefepime HCl (Maxipime 1gm) 1 gm in 100 mls @ 100 mls/hr IVPB Q24H [facility] PRN Reason: Protocol Stop: 06/11/17 11:01 Isosorbide Mononitrate (Imdur) 30 mg PO DAILY [facility] Last Admin: 06/02/17 10:01 Dose: 30 mg Lisinopril (Zestril) 20 mg PO DAILY [facility] Last Admin: 06/02/17 10:01 Dose: 20 mg Metronidazole (Flagyl) 500 mg PO Q8 [facility] PRN Reason: Protocol Stop: 06/11/17 14:01 Tramadol HCl (Ultram) 50 mg PO Q6H [facility] Physical Exam - Constitutional Appears: Non-toxic, No Acute Distress - Head Exam Head Exam: NORMAL INSPECTION - Eye Exam Eye Exam: Normal appearance - ENT Exam ENT Exam: Normal Exam - Respiratory Exam Respiratory Exam: absent: Accessory Muscle Use, Respiratory Distress - Cardiovascular Exam Cardiovascular Exam: REGULAR RHYTHM. absent: Tachycardia - GI/Abdominal Exam GI & Abdominal Exam: Soft. absent: Distended, Tenderness - Rectal Exam Additional comments: 4x5cm indurated abscess on right gluteal cleft with minimal fluctuance in the center - Extremities Exam Extremities exam: Negative for: pedal edema - Neurological Exam Neurological exam: Alert, Oriented x3 - Psychiatric Exam Psychiatric exam: Normal Affect, Normal Mood - Skin Skin Exam: Normal Color, Warm Results - Vital Signs Recent Vital Signs: Last Vital Signs Temp 98.4 F 06/02/17 06:00 Pulse 104 H 06/02/17 10:01 Resp 20 06/02/17 06:00 BP 146/89 06/02/17 10:01 Pulse Ox 99 06/02/17 06:00 - Labs Result Diagrams: 06/02/17 04:10 06/02/17 04:10 Labs: Laboratory Results - last 24 hr 06/02/17 06/02/17 06/02/17 00:25 04:10 04:10 WBC 4.4 L RBC 3.61 Hgb 11.1 L Hct 34.2 L MCV 94.7 MCH 30.7 MCHC 32.5 RDW 14.5 Plt Count 78 L MPV 10.3 Sodium 139 Potassium 4.2 Chloride 99 Carbon Dioxide 29 Anion Gap 15 BUN 26 H Creatinine 9.2 H* Est GFR ( Amer) 8 Est GFR (Non-Af Amer) 6 Random Glucose 80 Calcium 9.3 Phosphorus 4.8 H Magnesium 2.2 Total Bilirubin 1.4 H AST 21 ALT 21 Alkaline Phosphatase 128 Troponin I 0.24 H* 0.25 H* Total Protein 7.3 Albumin 3.9 Globulin 3.4 Albumin/Globulin Ratio 1.1 06/02/17 07:42 WBC RBC Hgb Hct MCV MCH MCHC RDW Plt Count MPV Sodium Potassium Chloride Carbon Dioxide Anion Gap BUN Creatinine Est GFR ( Amer) Est GFR (Non-Af Amer) Random Glucose Calcium Phosphorus Magnesium Total Bilirubin AST ALT Alkaline Phosphatase Troponin I 0.24 H* Total Protein Albumin Globulin Albumin/Globulin Ratio Assessment & Plan - Assessment and Plan (Free Text) Assessment: 37M with right gluteal abscess Plan: abx as per primary will switch from percocet to PO dilaudid due to kidney fx bedside ID performed wound culture sent to lab will change packing tomorrow d/w Dr Jose Baptiste, PGY3 - Incision & Drainage Of Abscess Anesthesia: Bupivicaine 0.25% Used During Procedure: Oxygen Prep Used: Sterile Water (chloroprep) Procedure: Incised W/Scalpel Blade#: (11), Drained Pus (20cc), Probed To Break Up Loculations, Packed W/Gauze (iodoform), Cultures Obtained And Sent To Lab <Radhames Garcia - Last Filed: 06/02/17 23:28> Meds - Medications Medications: Current Medications Carvedilol (Coreg) 25 mg PO BID [facility] Last Admin: 06/02/17 17:48 Dose: 25 mg Hydralazine HCl (Apresoline) 25 mg PO TID [facility] Last Admin: 06/02/17 17:48 Dose: 25 mg Hydrochlorothiazide (Hydrodiuril) 25 mg PO DAILY [facility] Last Admin: 06/02/17 10:01 Dose: 25 mg Hydromorphone HCl (Dilaudid) 2 mg PO Q4H PRN PRN Reason: Pain, moderate (4-7) Last Admin: 06/02/17 15:21 Dose: 2 mg Cefepime HCl (Maxipime 1gm) 1 gm in 100 mls @ 100 mls/hr IVPB Q24H [facility] PRN Reason: Protocol Stop: 06/11/17 11:01 Last Admin: 06/02/17 12:35 Dose: 100 mls/hr Isosorbide Mononitrate (Imdur) 30 mg PO DAILY [facility] Last Admin: 06/02/17 10:01 Dose: 30 mg Lisinopril (Zestril) 20 mg PO DAILY [facility] Last Admin: 06/02/17 10:01 Dose: 20 mg Metronidazole (Flagyl) 500 mg PO Q8 [facility] PRN Reason: Protocol Stop: 06/11/17 14:01 Last Admin: 06/02/17 21:19 Dose: 500 mg Tramadol HCl (Ultram) 50 mg PO Q6H [facility] Last Admin: 06/02/17 23:15 Dose: Not Given Results - Vital Signs Recent Vital Signs: Last Vital Signs Temp 98.2 F 06/02/17 17:10 Pulse 88 06/02/17 22:00 Resp 20 06/02/17 17:10 BP 137/78 06/02/17 17:48 Pulse Ox 99 06/02/17 06:00 - Labs Result Diagrams: 06/02/17 04:10 06/02/17 04:10 Labs: Laboratory Results - last 24 hr 06/02/17 06/02/17 06/02/17 00:25 04:10 04:10 WBC 4.4 L RBC 3.61 Hgb 11.1 L Hct 34.2 L MCV 94.7 MCH 30.7 MCHC 32.5 RDW 14.5 Plt Count 78 L MPV 10.3 Sodium 139 Potassium 4.2 Chloride 99 Carbon Dioxide 29 Anion Gap 15 BUN 26 H Creatinine 9.2 H* Est GFR ( Amer) 8 Est GFR (Non-Af Amer) 6 Random Glucose 80 Calcium 9.3 Phosphorus 4.8 H Magnesium 2.2 Total Bilirubin 1.4 H AST 21 ALT 21 Alkaline Phosphatase 128 Troponin I 0.24 H* 0.25 H* Total Protein 7.3 Albumin 3.9 Globulin 3.4 Albumin/Globulin Ratio 1.1 RPR 06/02/17 06/02/17 07:42 12:30 WBC RBC Hgb Hct MCV MCH MCHC RDW Plt Count MPV Sodium Potassium Chloride Carbon Dioxide Anion Gap BUN Creatinine Est GFR ( Amer) Est GFR (Non-Af Amer) Random Glucose Calcium Phosphorus Magnesium Total Bilirubin AST ALT Alkaline Phosphatase Troponin I 0.24 H* Total Protein Albumin Globulin Albumin/Globulin Ratio RPR Nonreactive Assessment & Plan - Assessment and Plan (Free Text) Assessment: Dx gluteal abscess(Recurrent) ESRD/CKD Cardiomyopathy Consult done under my direct supervision David Garcia MD FACS
[2017-06-02] MEDS: Cefepime 1gm in NS 100ml 1 GM/100 ML BAG IVPB SCH (12:35)
--- NOTE | 2017-06-02 22:46 | HP ---
HISTORY OF PRESENT ILLNESS: The patient was admitted via the emergency room [facility] in [place]. The patient presented in the emergency room yesterday. He is a 37 year old male. He has long medical history. He presented in the emergency room with pain in his left buttocks and the patient also has some chest discomfort and palpitations. The patient was evaluated in the emergency room and he was found to have an abscess in the left buttocks area. The patient also has some abnormalities in the cardiac enzyme analysis. The patient had no fever at the time of evaluation in the emergency room and there was no overt drainage from the abscess site. PAST MEDICAL HISTORY: The patient's past history is significant and that he has been treated for chronic renal failure. The patient has scheduled dialysis Saturday, Saturday, and Saturday in [place] for chronic renal failure. The patient also has history of hypertension and he is on medication for that. The patient has abnormal troponins - slightly elevated. The patient will have a cardiac consultation with Dr. Sandro Horner, dental professional. The patient will have evaluation with infectious disease for treatment of abscess and general surgeon to evaluate the nature of the abscess and the possibility of drainage. ALLERGIES: THE PATIENT IS ALLERGIC TO HEPARIN, POKE, SHELLFISH. MEDICATIONS: hydrochlorothiazide, hydralazine 25 mg three times a day, lisinopril 20 mg daily, isosorbide mononitrate 30 mg daily, carvedilol 25 mg b.i.d. The patient is on a 2 gram sodium renal diet. PHYSICAL EXAMINATION: VITAL SIGNS: Pulse is 102, the patient's temperature was 98, blood pressure 142/93. HEENT: The patient's head is normocephalic. The eyes and ears seem to be within normal limits. NECK: The thyroid is not enlarged. JVP is flat. Carotid pulses are present. LUNGS: Trachea is central. Breath sounds are vesicular. No adventitious sounds. HEART: S1 and S2 present. The patient has a cardiac pacemaker with defibrillator. ABDOMEN: Soft. Liver and spleen are not palpable. No tenderness is noted. Abdominal CAT scan was done and that does not reveal any significant internal pathology. RECTAL: Deferred at this time. The patient needs an evaluation. We will have surgeon evaluate the patient. ORDER CHECKER: Within normal limits. LABORATORY DATA: The patient's blood work, his CBC shows a hemoglobin of 11.1, the patient's white count is 4400. Chemistry: The patient's creatinine is 9.2, BUN is 26. The patient's troponin is abnormal at 0.24 which is elevated. As mentioned, the patient will have cardiac evaluation and infectious disease evaluation in the hospital. PLAN: We will also have a surgeon see the patient for drainage of abscess. We will continue current management with the advice from the infectious disease regarding the antibiotic choice. Chico Melgar MD MTDD
--- NOTE | 2017-06-02 23:23 | CP.PCM.PCO ---
Physician Communication Note - Physician Communication Note Physician Communication Note: Abscess drained-c/s sent
--- NOTE | 2017-06-03 00:22 | CON ---
DATE: 06/02/2017 The patient was seen earlier this morning in room 271, bed 2. CHIEF COMPLAINT: Buttocks pain times several days. HISTORY OF PRESENT ILLNESS: This is a 37-year-old male with past medical history significant for congestive heart failure, hypertension and chronic renal failure, on hemodialysis, who has a pacemaker and has had cardiac catheterization, who states he has been hospitalized for his buttock abscess in the past, has had in the past. He was seen in the emergency room by Dr. Heriberto Monae and complains of chest pain 7 days ago, was seen in the emergency room and states that he had chest pain on and off and also a little buttock pain 5 months ago and it has gotten worse. He denied any fevers or any chills. No cough. No headaches. No abdominal pain, diarrhea or constipation. No dysuria or frequency. PAST MEDICAL HISTORY: Significant for congestive hear failure, hypertension, and chronic renal failure, on hemodialysis. PAST SURGICAL HISTORY: Significant for pacemaker and cardiac catheterization. The patient also has a left AV shunt. ALLERGIES: THE PATIENT HAS AN ALLERGY TO HEPARIN, PORK, AND SHELLFISH. HOME MEDICATIONS: Include hydrochlorothiazide and hydralazine, Zestril, which is lisinopril, and Imdur. PHYSICAL EXAMINATION: GENERAL: The patient is in bed, in no acute distress. Answering questions appropriately. VITAL SIGNS: Temperature 98, blood pressure 140/80, respiratory rate of 22, heart rate of 104. HEENT: Unremarkable. NECK: Supple. HEART: Normal S1 and S2. LUNGS: Decreased breath sounds. ABDOMEN: Soft and nontender. RECTAL: Examination of the buttocks; the right buttocks area is indurated, perirectal area induration, measuring approximately 4 x 5 cm. LABORATORY DATA: Reveals a white count of 4.4, it was 3.8, but hemoglobin 11, platelet count of 82,000. Coagulation is noted with INR of 1.1. Blood gases are reviewed. Creatinine is 9.2. Troponins are elevated. The patient was given vancomycin and ceftriaxone in the emergency room. The patient had a CAT of the abdomen and pelvis. Inflammation within the right gluteal region is noted, cannot rule out the abscess. ASSESSMENT AND PLAN: A 37-year-old male with congestive heart failure, hypertension, chronic renal failure, on hemodialysis with chest pain with elevated troponin's, nonspecific EKG changes with a heart rate of 95, respiratory rate of 21, white count of 3.8 with sepsis with a right gluteal buttocks induration, must rule out abscess in the setting of a non-ST elevation myocardial infarction. We will treat the patient. He has received a dose of vancomycin. We will give another dose of vancomycin and start Maxipime and Flagyl. Waiting for surgical input and reviewed the CAT scan. We will also order an human immunodeficiency virus test and a RPR and FTA. We will make further recommendations upon availability of the initial results. We will follow closely with you. Marcus Kaur MD
--- NOTE | 2017-06-03 07:16 | CP.PCM.PN ---
Subjective - Date & Time of Evaluation Date of Evaluation: 06/03/17 Time of Evaluation: 07:00 - Subjective Subjective: Patient is seen and examined at bedside. Patient is resting comfortably in bed. Offers no new complaints at this time. Denies fever, chills, chest pain, SOB. Objective - Vital Signs/Intake and Output Vital Signs (last 24 hours): Temp Pulse Resp BP Pulse Ox 97.8 F 86 20 147/95 H 96 06/03/17 06:00 06/03/17 06:00 06/03/17 06:00 06/03/17 06:00 06/03/17 06:00 Intake and Output: 06/03/17 06/03/17 06:59 18:59 Intake Total 240 Balance 240 - Medications Medications: Current Medications Carvedilol (Coreg) 25 mg PO BID [facility] Last Admin: 06/02/17 17:48 Dose: 25 mg Hydralazine HCl (Apresoline) 25 mg PO TID [facility] Last Admin: 06/02/17 17:48 Dose: 25 mg Hydrochlorothiazide (Hydrodiuril) 25 mg PO DAILY [facility] Last Admin: 06/02/17 10:01 Dose: 25 mg Hydromorphone HCl (Dilaudid) 2 mg PO Q4H PRN PRN Reason: Pain, moderate (4-7) Last Admin: 06/02/17 15:21 Dose: 2 mg Cefepime HCl (Maxipime 1gm) 1 gm in 100 mls @ 100 mls/hr IVPB Q24H [facility] PRN Reason: Protocol Stop: 06/11/17 11:01 Last Admin: 06/02/17 12:35 Dose: 100 mls/hr Isosorbide Mononitrate (Imdur) 30 mg PO DAILY [facility] Last Admin: 06/02/17 10:01 Dose: 30 mg Lisinopril (Zestril) 20 mg PO DAILY [facility] Last Admin: 06/02/17 10:01 Dose: 20 mg Metronidazole (Flagyl) 500 mg PO Q8 [facility] PRN Reason: Protocol Stop: 06/11/17 14:01 Last Admin: 06/03/17 05:07 Dose: 500 mg Tramadol HCl (Ultram) 50 mg PO Q6H [facility] Last Admin: 06/03/17 04:35 Dose: Not Given - Labs Labs: 06/02/17 04:10 PT 12.0 Seconds (9.9-11.8) H 06/01/17 18:00 INR 1.11 (0.93-1.08) H 06/01/17 18:00 APTT 29.2 Seconds (23.7-30.8) 06/01/17 18:00 - Additional Findings Additional findings: - Constitutional Appears: Non-toxic, No Acute Distress - Head Exam Head Exam: NORMAL INSPECTION - Eye Exam Eye Exam: Normal appearance - ENT Exam ENT Exam: Normal Exam - Respiratory Exam Respiratory Exam: absent: Accessory Muscle Use, Respiratory Distress - Cardiovascular Exam Cardiovascular Exam: REGULAR RHYTHM. absent: Tachycardia - GI/Abdominal Exam GI & Abdominal Exam: Soft. absent: Distended, Tenderness - Rectal Exam Additional comments: bandaged right gluteal cleft - Extremities Exam Extremities exam: Negative for: pedal edema - Neurological Exam Neurological exam: Alert, Oriented x3 - Psychiatric Exam Psychiatric exam: Normal Affect, Normal Mood Assessment and Plan - Assessment and Plan (Free Text) Assessment: 37M with right gluteal abscess Clear for discharge from surgery standpoint Abscess site cleaned and bandaged Abx as per primary Pain control Wound culture pending Medical management as per primary will d/w Dr Garcia
[2017-06-03 07:39] LABS: BASO # 0.02 K/mm3 (0.0-2.0); BASO % 0.6 % (0.0-3.0); EOS # 0.2 (0.0-0.7); EOS % 5.6 % (1.5-5.0); GRAN # 2.15 (1.4-6.5); GRAN % 60.7 % (50.0-68.0); HEMATOCRIT 31.9 % (42.0-52.0); LYMPH # 0.7 (1.2-3.4); LYMPH % 19.8 % (22.0-35.0); MEAN CELL VOLUME 92.7 fl (80.0-105.0); MEAN CORPUSCULAR HEMOGLOBIN 29.7 pg (25.0-35.0); MEAN PLATELET VOLUME 9.7 fl (7.0-11.0); MONO # 0.5 (0.1-0.6); MONO % 13.3 % (1.0-6.0); RED CELL DISTRIBUTION WIDTH 14.3 % (11.5-14.5); WHITE BLOOD COUNT 3.5 10^3/ul (4.5-11.0)
--- NOTE | 2017-06-03 07:53 | CP.PCM.PN ---
<Rivka Menchaca - Last Filed: 06/03/17 17:15> Subjective - Date & Time of Evaluation Date of Evaluation: 06/03/17 Time of Evaluation: 07:29 - Subjective Subjective: Internal medicine progress note for Dr. Melgar covering for Dr. Rolando Menchaca, PGY-1 Pt S & E at bedside. Pt reports some nausea with pain medication overnight - pain well controlled, chills, orthopnea at night (chronic), tolerating diet. Denies emesis, fevers, SOB. Objective - Vital Signs/Intake and Output Vital Signs (last 24 hours): Temp Pulse Resp BP Pulse Ox 97.8 F 86 20 147/95 H 96 06/03/17 06:00 06/03/17 06:00 06/03/17 06:00 06/03/17 06:00 06/03/17 06:00 Intake and Output: 06/03/17 06/03/17 06:59 18:59 Intake Total 240 Balance 240 - Medications Medications: Current Medications Carvedilol (Coreg) 25 mg PO BID [facility] Last Admin: 06/02/17 17:48 Dose: 25 mg Hydralazine HCl (Apresoline) 25 mg PO TID [facility] Last Admin: 06/02/17 17:48 Dose: 25 mg Hydrochlorothiazide (Hydrodiuril) 25 mg PO DAILY [facility] Last Admin: 06/02/17 10:01 Dose: 25 mg Hydromorphone HCl (Dilaudid) 2 mg PO Q4H PRN PRN Reason: Pain, moderate (4-7) Last Admin: 06/02/17 15:21 Dose: 2 mg Cefepime HCl (Maxipime 1gm) 1 gm in 100 mls @ 100 mls/hr IVPB Q24H [facility] PRN Reason: Protocol Stop: 06/11/17 11:01 Last Admin: 06/02/17 12:35 Dose: 100 mls/hr Isosorbide Mononitrate (Imdur) 30 mg PO DAILY [facility] Last Admin: 06/02/17 10:01 Dose: 30 mg Lisinopril (Zestril) 20 mg PO DAILY [facility] Last Admin: 06/02/17 10:01 Dose: 20 mg Metronidazole (Flagyl) 500 mg PO Q8 [facility] PRN Reason: Protocol Stop: 06/11/17 14:01 Last Admin: 06/03/17 05:07 Dose: 500 mg Tramadol HCl (Ultram) 50 mg PO Q6H [facility] Last Admin: 06/03/17 04:35 Dose: Not Given - Labs Labs: 06/03/17 07:10 06/02/17 04:10 PT 12.0 Seconds (9.9-11.8) H 06/01/17 18:00 INR 1.11 (0.93-1.08) H 06/01/17 18:00 APTT 29.2 Seconds (23.7-30.8) 06/01/17 18:00 - Constitutional Appears: Non-toxic, No Acute Distress - Head Exam Head Exam: ATRAUMATIC, NORMAL INSPECTION, NORMOCEPHALIC - Eye Exam Eye Exam: EOMI, Normal appearance - ENT Exam ENT Exam: Mucous Membranes Moist, Normal Exam - Neck Exam Neck Exam: Full ROM, Normal Inspection Additional comments: well healed linear small scar at base of right neck - Respiratory Exam Respiratory Exam: Clear to Ausculation Bilateral, NORMAL BREATHING PATTERN. absent: Accessory Muscle Use, Chest Wall Tenderness, Rales, Rhonchi, Wheezes, Respiratory Distress Additional comments: AICD over left chest wall - Cardiovascular Exam Cardiovascular Exam: REGULAR RHYTHM, +S1, +S2 - GI/Abdominal Exam GI & Abdominal Exam: Soft, Hernia (small umbilical), Normal Bowel Sounds. absent: Distended, Firm, Guarding, Rigid, Tenderness - Extremities Exam Extremities Exam: absent: Normal Inspection (LUE with AVF at distal aspect, palpable thrill), Tenderness - Neurological Exam Neurological Exam: Alert, Awake, CN II-XII Intact, Oriented x3 - Psychiatric Exam Psychiatric exam: Normal Affect, Normal Mood - Skin Skin Exam: Dry, Normal Color, Warm. absent: Intact (R mid gluteal abscess surgical site with dressing in place- C/D/I, minimal induration, no flucutance ) Assessment and Plan - Assessment and Plan (Free Text) Assessment: 37YO M w/PMH sig for ESRD on HD, AICD placement, admitted for right gluteal abscess s/p I & D POD#1, doing well overnight, some nausea with pain medication Plan: R gluteal abscess Afebile No leukocytosis Cont Cefepime Cont Flagyl FU wound cx FU HIV test FU FTA-ABS Pain regimen modified Zofran PRN Wound care Surgery-ok to d/c from surgical standpoint with pressure dressing, PO antibiotics ID following ESRD on HD BUN 43 Cr 11.3 Phos 4.8 Needs HD today Nephro consulted Chest pain, HTN Cont home meds: Coreg, Hydralazine, HCTZ, Imdur, lisinopril Trops slightly positive (0.24, 0.25) Cardio following Hx of hemorrhoids Currently asymptomatic DW PMD for outpatient followup GI/DVT ppx Protonix SCDS TEDs Allergy to heparin Dispo Ambulate OOBTC Will DW attending Bernarda, PGY-1 <Aiden Melgar V - Last Filed: 06/19/17 11:40> Objective - Vital Signs/Intake and Output Vital Signs (last 24 hours): Temp Pulse Resp BP Pulse Ox 98.7 F 80 18 158/91 H 94 L 06/09/17 11:54 06/09/17 17:56 06/09/17 11:54 06/09/17 17:56 06/09/17 06:00 - Labs Labs: 06/09/17 07:20 06/09/17 07:20 PT 12.7 Seconds (9.9-11.8) H 06/06/17 06:30 INR 1.18 (0.93-1.08) H 06/06/17 06:30 APTT 34.4 Seconds (23.7-30.8) H 06/06/17 06:30 Assessment and Plan - Assessment and Plan (Free Text) Plan: (covering for Dr. Varner) Awaiting results of wound and blood cultures. Discharge once cleared by infectious disease for oral antibiotics. <Refugio Varner U - Last Filed: 07/03/17 21:20> Objective - Vital Signs/Intake and Output Vital Signs (last 24 hours): Temp Pulse Resp BP Pulse Ox 98.7 F 80 18 158/91 H 94 L 06/09/17 11:54 06/09/17 17:56 06/09/17 11:54 06/09/17 17:56 06/09/17 06:00 - Labs Labs: 06/09/17 07:20 06/09/17 07:20 PT 12.7 Seconds (9.9-11.8) H 06/06/17 06:30 INR 1.18 (0.93-1.08) H 06/06/17 06:30 APTT 34.4 Seconds (23.7-30.8) H 06/06/17 06:30
[2017-06-03 08:13] LABS: POTASSIUM 4.2 mmol/L (3.6-5.0)
[2017-06-03] MEDS: Cefepime 1gm in NS 100ml 1 GM/100 ML BAG IVPB SCH (10:05)
[2017-06-03] MEDS ORDERED: Milrinone 20mg/100ml D5W 100 ML IV PRN (11:18)
[2017-06-03] MEDS ORDERED: Primacor 1 mg/ml Inj (10 ml) IVP ONE (11:27)
--- NOTE | 2017-06-03 12:31 | PN ---
DATE: 06/03/2017 SUBJECTIVE: The patient is a 37-year-old male. The patient was admitted with abscess in the left buttocks. The patient has history of chronic renal failure and he is on dialysis 3 times a week. The patient also has history of hypertension and coronary artery disease. The patient was seen this morning, he is awake and alert. He states his pain is somewhat subsided with the pain medication. The patient was seen by Dr. Radhames Garcia, regarding the abscess in the buttocks. PHYSICAL EXAMINATION: VITAL SIGNS: The patient's pulse is 86 and blood pressure is 150/95. The patient's respirations are 20 and O2 saturation is 96%. RESPIRATORY: Examination of lungs are clear. HEART: Normal sinus rhythm. ABDOMEN: Soft. Liver and spleen are not palpable. EXTREMITIES: The examination of the leg shows the evidence of large abscess in the left thigh. The patient's condition is recurrent condition. The patient has had exterior surgery in the past. DIAGNOSTIC DATA: The patient's CAT scan revealed no pathology in the abdomen at this time. IMPRESSION AND PLAN: We have requested a surgeon to follow up and treat the patient with the definite management plan. We will continue current management. His medication consists of hydralazine which is Apresoline 25 mg three times a day, Coreg 25 mg b.i.d., and the patient is on Flagyl 500 mg q. 8 hours. The patient is on Maxipime 1 gram IV q. 8 hours. The patient is on hydrochlorothiazide, isosorbide mononitrate, and pantoprazole. The patient is on tramadol and the patient is on lisinopril 20 mg t.i.d. We will continue current management. His condition is clinically improved, but the patient does need surgical treatment of the abscess. Chico Melgar MD MTDScott
--- NOTE | 2017-06-03 12:33 | CP.PCM.PN ---
Subjective - Date & Time of Evaluation Date of Evaluation: 06/03/17 Time of Evaluation: 10:00 - Subjective Subjective: Patient is feeling somewhat better, no fevers overnight, had I and D of the gluteal abscess yesterday, less pain in his right gluteal area. Objective - Vital Signs/Intake and Output Vital Signs (last 24 hours): Temp Pulse Resp BP Pulse Ox 98.7 F 88 20 123/87 96 06/03/17 12:00 06/03/17 12:00 06/03/17 12:00 06/03/17 12:00 06/03/17 06:00 Intake and Output: 06/03/17 06/03/17 06:59 18:59 Intake Total 240 Balance 240 - Medications Medications: Current Medications Carvedilol (Coreg) 25 mg PO BID [facility] Last Admin: 06/03/17 12:12 Dose: Not Given Hydralazine HCl (Apresoline) 25 mg PO TID [facility] Last Admin: 06/03/17 12:12 Dose: Not Given Hydrochlorothiazide (Hydrodiuril) 25 mg PO DAILY [facility] Last Admin: 06/02/17 10:01 Dose: 25 mg Hydromorphone HCl (Dilaudid) 1 mg PO Q4H PRN PRN Reason: Pain, severe (8-10) Cefepime HCl (Maxipime 1gm) 1 gm in 100 mls @ 100 mls/hr IVPB Q24H [facility] PRN Reason: Protocol Stop: 06/11/17 11:01 Last Admin: 06/03/17 10:05 Dose: 100 mls/hr Milrinone Lactate/Dextrose (Primacor 20mg/100ml D5w) 100 mls @ 7.071 mls/hr IV .Q14H9M PRN; Protocol; 0.2 MCG/KG/MIN PRN Reason: TITRATE PER MD ORDER Isosorbide Mononitrate (Imdur) 30 mg PO DAILY [facility] Last Admin: 06/02/17 10:01 Dose: 30 mg Lisinopril (Zestril) 20 mg PO DAILY [facility] Last Admin: 06/02/17 10:01 Dose: 20 mg Metronidazole (Flagyl) 500 mg PO Q8 [facility] PRN Reason: Protocol Stop: 06/11/17 14:01 Last Admin: 06/03/17 05:07 Dose: 500 mg Ondansetron HCl (Zofran Odt) 4 mg PO Q8H PRN PRN Reason: Nausea/Vomiting Pantoprazole Sodium (Protonix Ec Tab) 20 mg PO 0600 [facility] Tramadol HCl (Ultram) 50 mg PO Q6H PRN PRN Reason: Pain, moderate (4-7) Last Admin: 06/03/17 10:02 Dose: 50 mg - Labs Labs: 06/03/17 07:10 06/03/17 07:10 PT 12.0 Seconds (9.9-11.8) H 06/01/17 18:00 INR 1.11 (0.93-1.08) H 06/01/17 18:00 APTT 29.2 Seconds (23.7-30.8) 06/01/17 18:00 - Constitutional Appears: Non-toxic, No Acute Distress - Head Exam Head Exam: NORMAL INSPECTION - ENT Exam ENT Exam: Mucous Membranes Moist - Neck Exam Neck Exam: absent: Lymphadenopathy, Meningismus - Respiratory Exam Respiratory Exam: Decreased Breath Sounds - Cardiovascular Exam Cardiovascular Exam: +S1, +S2 - GI/Abdominal Exam GI & Abdominal Exam: Soft. absent: Tenderness - Extremities Exam Additional comments: right gluteal area with decreased swelling, still an area of induration noted Assessment and Plan - Assessment and Plan (Free Text) Plan: Assessment sepsis due to right gluteal purulent skin and skin structure infection S/P I and D POD #1 probable acute NSTEMI CAD S/P PCI chronic CHF with CAD S/P PCI S/P pacemaker placement ESRD on HD HTN Plan continue intermittent Vancomycin, Cefepime and Flagyl pending blood and wound cx will monitor clinically
[2017-06-03] MEDS: Milrinone 20mg/100ml D5W 100 ML IV PRN (13:07)
[2017-06-03] MEDS ORDERED: Oxycodone/Acetaminophen 5/325 mg Tab PO PRN (17:16)
--- NOTE | 2017-06-03 20:06 | CON ---
DATE: 06/03/2017 CARDIOLOGY FOLLOWUP HISTORY OF PRESENT ILLNESS: The patient is a 37-year-old male who presents with chest pain, shortness of breath as well as pain in his buttocks. PAST MEDICAL HISTORY: The patient's past medical history includes recent surgery for an abscess in his buttock. In addition, the patient has a documented dilated cardiomyopathy in which multiple catheterizations were performed at [facility] as well as [facility] in which his coronary arteries are normal. He suffers from hypertension, end-stage renal disease, has been treated with hydrochlorothiazide, hydralazine, Zestril, as well as carvedilol. Currently, his breathing remained is progressively worsening. SOCIAL HISTORY: Denies smoking. REVIEW OF SYSTEMS: Was reviewed. His chest pain is atypical. PHYSICAL EXAMINATION: VITAL SIGNS: Blood pressure is 147/95, heart rate in the 80s. NECK: Negative JVD. LUNGS: Decreased breath sounds bilaterally. HEART: Reveal S1, S2. EXTREMITIES: Without edema. DIAGNOSTIC DATA: EKG shows nonspecific ST-T changes. LABORATORY DATA: BUN and creatinine is 43 and 11.3 with a troponin of 0.24. The hemoglobin is 10.2. IMPRESSION: 1. Acute systolic CHF. 2. Dilated cardiomyopathy without thrombus documented by recent transesophageal echocardiogram. 3. Dyspnea. 4. End-stage renal disease. 5. Hypertension. 6. Unremarkable coronary arteries by catheterization in the past. 4. Number anemia. PLAN: Given these findings, we will give the patient a trial of IV milrinone for 24 to 48 hours. Sandro Horner MD
--- NOTE | 2017-06-03 23:12 | CON ---
DATE: 06/03/2017 REASON FOR CONSULTATION: Hypertension, end-stage renal disease, need for dialysis. HISTORY OF PRESENT ILLNESS: A 37-year-old young male presented to the emergency room on 06/01/2017, with complaints of chest tightness, palpitations, pain in the lower back. In the emergency room he was found to have an abscess in the gluteal region. He was also found to have elevated troponins. His EKG was unremarkable. The thought was that his elevated troponins are secondary to his renal failure, but he was admitted for treatment of his gluteal abscess. The patient had his abscess drained yesterday. He is lying in bed today and comfortably. He feels better. He denies any chest pain. He denies any palpitations. He denies any shortness of breath. PAST MEDICAL HISTORY: Longstanding hypertension, left ventricular hypertrophy, CHF, ESRD, dialysis Saturday, Saturday, and Saturday, left AV shunt, pacemaker placement. FAMILY HISTORY: Hypertension. SOCIAL HISTORY: No smoking, no alcohol use, no IV drug abuse. ALLERGIES: HEPARIN, PORK, SHELLFISH. MEDICATIONS: At home, the patient was supposed to be on hydrochlorothiazide, hydralazine, Zestril, and Imdur, the patient reports that he was not taking any of these medications at home. REVIEW OF SYSTEMS: All systems are reviewed, pertinent positives as mentioned in history of presenting illness, rest unremarkable. PHYSICAL EXAMINATION GENERAL: Young male lying in bed. VITAL SIGNS: Blood pressure 147/95, heart rate 86, respiratory rate 20, temperature 97.8. HEENT: Normocephalic, atraumatic. NECK: Supple. No JVD. CARDIOPULMONARY: S1 and S2. Regular rate and rhythm. No murmur. No rub. LUNGS: Bilateral equal air entry, no rales. ABDOMEN: Obese, distended, soft, nontender, bowel sounds present. EXTREMITIES: No lower extremity edema. CURRENT MEDICATIONS: Apresoline 25 mg t.i.d., Coreg 25 mg b.i.d., Dilaudid, Flagyl 500 mg q. 8, hydrochlorothiazide 25 mg daily, Imdur 30, cefepime 1 g daily, Protonix, Ultram, lisinopril 20 mg daily, Zofran. ASSESSMENT: 1. Decompensated congestive heart failure. 2. Hypertension. 3. End stage renal disease. 4. Gluteal abscess. PLAN: 1. The patient has had his gluteal abscess drained. 2. Continue antibiotics. 3. Dialysis today. 4. Continue antihypertensives. 5. Once again, long discussion with the patient regarding importance of compliance with antihypertensives. Thank you for the courtesy of this consultation. We will follow this patient closely with you. Urmila Rutledge MD
[2017-06-04] MEDS: Milrinone 20mg/100ml D5W 100 ML IV PRN ×3 (00:29→19:00)
[2017-06-04] MEDS: Pantoprazole 20 mg EC Tab PO SCH (05:27)
--- NOTE | 2017-06-04 06:49 | CP.PCM.PN ---
<Lita Shah - Last Filed: 06/04/17 11:18> Subjective - Date & Time of Evaluation Date of Evaluation: 06/04/17 Time of Evaluation: 06:49 - Subjective Subjective: Medicine Progress Note for Kaleigh Garcia PGY2 Patient seen and examined at bedside. Overnight patient had 7 beats of Vtach and was asymptomatic at the time. He also had fevers overnight and was given tylenol. He denies CP, SOB, n/v/d, numbness/tingling, vision changes. He reports having a dry cough. Objective - Vital Signs/Intake and Output Vital Signs (last 24 hours): Temp Pulse Resp BP Pulse Ox 100 F H 115 H 20 150/73 97 06/04/17 05:56 06/04/17 05:56 06/04/17 05:56 06/04/17 05:56 06/04/17 05:56 Intake and Output: 06/03/17 06/04/17 18:59 06:59 Intake Total 428 Output Total 60 Balance 368 - Medications Medications: Current Medications Acetaminophen (Tylenol 325mg Tab) 650 mg PO Q4H PRN PRN Reason: Fever >100.4 F Last Admin: 06/04/17 03:52 Dose: 650 mg Carvedilol (Coreg) 25 mg PO BID [facility] Last Admin: 06/03/17 20:16 Dose: 25 mg Hydralazine HCl (Apresoline) 25 mg PO TID [facility] Last Admin: 06/03/17 20:17 Dose: 25 mg Hydrochlorothiazide (Hydrodiuril) 25 mg PO DAILY [facility] Last Admin: 06/03/17 18:08 Dose: Not Given Cefepime HCl (Maxipime 1gm) 1 gm in 100 mls @ 100 mls/hr IVPB Q24H [facility] PRN Reason: Protocol Stop: 06/11/17 11:01 Last Admin: 06/03/17 10:05 Dose: 100 mls/hr Milrinone Lactate/Dextrose (Primacor 20mg/100ml D5w) 100 mls @ 7.28 mls/hr IV .[id number] PRN; Protocol; 0.2 MCG/KG/MIN PRN Reason: TITRATE PER MD ORDER Last Admin: 06/04/17 00:29 Dose: 0.2 mcg/kg/min, 7.28 mls/hr Isosorbide Mononitrate (Imdur) 30 mg PO DAILY [facility] Last Admin: 06/03/17 18:08 Dose: Not Given Lisinopril (Zestril) 20 mg PO DAILY [facility] Last Admin: 06/03/17 18:07 Dose: Not Given Metronidazole (Flagyl) 500 mg PO Q8 [facility] PRN Reason: Protocol Stop: 06/11/17 14:01 Last Admin: 06/03/17 22:14 Dose: 500 mg Ondansetron HCl (Zofran Odt) 4 mg PO Q8H PRN PRN Reason: Nausea/Vomiting Oxycodone/Acetaminophen (Percocet 5/325 Mg Tab) 1 tab PO Q6H PRN PRN Reason: Pain, severe (8-10) Stop: 06/06/17 17:17 Pantoprazole Sodium (Protonix Ec Tab) 20 mg PO 0600 [facility] Last Admin: 06/04/17 05:27 Dose: 20 mg Tramadol HCl (Ultram) 50 mg PO Q6H PRN PRN Reason: Pain, moderate (4-7) Last Admin: 06/03/17 22:14 Dose: 50 mg - Labs Labs: 06/03/17 07:10 06/03/17 07:10 PT 12.0 Seconds (9.9-11.8) H 06/01/17 18:00 INR 1.11 (0.93-1.08) H 06/01/17 18:00 APTT 29.2 Seconds (23.7-30.8) 06/01/17 18:00 - Constitutional Appears: No Acute Distress - Head Exam Head Exam: ATRAUMATIC, NORMAL INSPECTION, NORMOCEPHALIC - Eye Exam Eye Exam: Normal appearance, PERRL Pupil Exam: NORMAL ACCOMODATION - ENT Exam ENT Exam: Mucous Membranes Moist - Neck Exam Neck Exam: Full ROM - Respiratory Exam Respiratory Exam: Rales, NORMAL BREATHING PATTERN. absent: Rhonchi, Wheezes - Cardiovascular Exam Cardiovascular Exam: REGULAR RHYTHM, +S1, +S2. absent: Gallop, Rubs, Murmur - GI/Abdominal Exam GI & Abdominal Exam: Soft, Tenderness (epigastric ), Normal Bowel Sounds. absent: Rigid, Mass, Rebound - Extremities Exam Extremities Exam: Pedal Edema. absent: Calf Tenderness - Neurological Exam Neurological Exam: Alert, Awake, CN II-XII Intact, Oriented x3 - Psychiatric Exam Psychiatric exam: Normal Affect, Normal Mood - Skin Skin Exam: Dry, Normal Color, Warm Additional comments: R buttock abscess, dressing in place- clean and dry Assessment and Plan - Assessment and Plan (Free Text) Assessment: This is a 37Y AA Male with PMH ESRD on HD (MWF), HTN, cardiomyopathy s/p AICD placement who was admitted for R gluteal abscess s/p I&D POD # 2. Now noted to have fevers and Vtach overnight. Plan: 1. Fever - Secondary to abscess versus pneumonia - CXR showed interval increase in RLL pathology - Repeat septic work up (u/a, blood culture, urine culture) - Chest CT ordered - Tylenol prn - Continue Zyvox, Merrem - ID consulted- recs appreciated - HIV negative 2. Vtach - Pt on milrinone drip - EKG ordered - Cardio consulted 3. R gluteal abscess - s/p I&D, POD # 2 - abscess still hard- may need repeat I&D - Continue Merrem, Zyvox - ID consulted- recs appreciated - Pain control - Surgery consulted- recs appreciated 4. HTN - Continue Coreg, Lisinopril 5. CHF - on milrinone drip - Strict I&O - HOB elevated - Aspiration precaution 6. ESRD on HD - Nephro consulted - Continue HD schedule (MW) GI ppx: Protonix DVT ppx: SCDs (allergic to heparin) Dispo: Follow up CT chest and septic work up. Patient will follow up with nephrology, cardiology and PMD upon D/c Case seen, discussed and reviewed with attending. Kaleigh Shah PGY2 <Refugio Varner U - Last Filed: 07/03/17 21:21> Objective - Vital Signs/Intake and Output Vital Signs (last 24 hours): Temp Pulse Resp BP Pulse Ox 98.7 F 80 18 158/91 H 94 L 06/09/17 11:54 06/09/17 17:56 06/09/17 11:54 06/09/17 17:56 06/09/17 06:00 - Labs Labs: 06/09/17 07:20 06/09/17 07:20 PT 12.7 Seconds (9.9-11.8) H 06/06/17 06:30 INR 1.18 (0.93-1.08) H 06/06/17 06:30 APTT 34.4 Seconds (23.7-30.8) H 06/06/17 06:30 Attending/Attestation - Attestation I have personally seen and examined this patient.: Yes I have fully participated in the care of the patient.: Yes I have reviewed all pertinent clinical information, including history, physical exam and plan: Yes
[2017-06-04] MEDS ORDERED: Vancomycin 2 GM in Sodium Chloride 0.9% 500 ML IVPB ONE (06:57)
[2017-06-04 07:52] LABS: HEMATOCRIT 30.4 % (42.0-52.0); MEAN CORPUSCULAR HEMOGLOBIN 29.7 pg (25.0-35.0); MEAN CORPUSCULAR HGB CONC 31.9 g/dl (31.0-37.0); MEAN PLATELET VOLUME 10.6 fl (7.0-11.0); RED CELL DISTRIBUTION WIDTH 14.5 % (11.5-14.5)
[2017-06-04 07:58] LABS: ALB/GLOB RATIO 1.1 (1.1-1.8); BILIRUBIN,TOTAL 1.8 mg/dL (0.2-1.3); CALCIUM 9.2 mg/dL (8.4-10.5); POTASSIUM 4.3 mmol/L (3.6-5.0); TOTAL PROTEIN 7.2 g/dL (5.8-8.3)
--- NOTE | 2017-06-04 08:10 | RAD ---
HISTORY: fever, cough COMPARISON: 06/01/2017 FINDINGS: LUNGS: The right inferolateral pleural parenchymal opacity is progressed. An increasing left pleural effusion possibly loculated is a consideration. Prominent compressive atelectasis and/or common and right basal patchy infiltrates also need to be considered. Left lung is clear. -however concomitant bilateral mild pulmonary venous congestion is suspect PLEURA: Right pleural effusion -interval increased pleural-based pathology inferred as above. No pneumothorax appreciated CARDIOVASCULAR: Marked cardiomegaly as before. OSSEOUS STRUCTURES: No significant abnormalities. VISUALIZED UPPER ABDOMEN: Normal. OTHER FINDINGS: AICD pacemaker device in place as before. IMPRESSION: Interval increase right pleural parenchymal pathology - 80 increasing right loculated pleural collection is a consideration. Other findings as above
[2017-06-04] MEDS: Meropenem 500 MG in Sodium Chloride 0.9% 100 ML IVPB SCH ×2 (08:27→21:35)
[2017-06-04] MEDS: Linezolid 600 mg in D5W 300 ml 600 MG/300 ML BAG IVPB SCH ×2 (09:54→21:36)
--- NOTE | 2017-06-04 10:52 | CP.PCM.PCO ---
Physician Communication Note - Physician Communication Note Physician Communication Note: Abscess resolving/Incr SOB-V Tach(6beats)CXR INCR PL EFFUSION
--- NOTE | 2017-06-04 11:07 | CT ---
PROCEDURE: CT Chest without contrast HISTORY: ???PLEURAL EFFUSION VS MASS COMPARISON: None. TECHNIQUE: Contiguous axial images were obtained through the chest without intravenous contrast enhancement. Sagittal and coronal reconstructions were performed. Radiation dose (DLP): 850 mGy-cm. This CT exam was performed using one or more of the following dose reduction techniques: Automated exposure control, adjustment of the mA and/or kV according to patient size, and/or use of iterative reconstruction technique. FINDINGS: LUNGS: There is atelectasis at the right lung base adjacent to the small effusion. No evidence of lung mass MEDIASTINUM: Unremarkable thoracic aorta. No aneurysm. Moderate to severe cardiomegaly. Main pulmonary artery unremarkable. No vascular congestion. No lymphadenopathy. PLEURA: Small right pleural effusion BONES: No fracture. No destructive lesion. UPPER ABDOMEN: Grossly unremarkable. OTHER FINDINGS: None. IMPRESSION: Small right pleural effusion with adjacent atelectasis. Severe cardiomegaly
--- NOTE | 2017-06-04 11:13 | CP.PCM.PN ---
Subjective - Date & Time of Evaluation Date of Evaluation: 06/04/17 Time of Evaluation: 09:45 - Subjective Subjective: Patient has been having fevers and chills since last night, less pain in the right gluteal area. No SOB, no nausea, no diarrhea, no abdominal pain. Objective - Vital Signs/Intake and Output Vital Signs (last 24 hours): Temp Pulse Resp BP Pulse Ox 100 F H 115 H 20 150/73 97 06/04/17 05:56 06/04/17 05:56 06/04/17 05:56 06/04/17 05:56 06/04/17 05:56 Intake and Output: 06/03/17 06/04/17 18:59 06:59 Intake Total 428 Output Total 60 Balance 368 - Medications Medications: Current Medications Acetaminophen (Tylenol 325mg Tab) 650 mg PO Q4H PRN PRN Reason: Fever >100.4 F Last Admin: 06/04/17 03:52 Dose: 650 mg Carvedilol (Coreg) 25 mg PO BID [facility] Last Admin: 06/03/17 20:16 Dose: 25 mg Hydralazine HCl (Apresoline) 25 mg PO TID [facility] Last Admin: 06/03/17 20:17 Dose: 25 mg Hydrochlorothiazide (Hydrodiuril) 25 mg PO DAILY [facility] Last Admin: 06/03/17 18:08 Dose: Not Given Cefepime HCl (Maxipime 1gm) 1 gm in 100 mls @ 100 mls/hr IVPB Q24H [facility] PRN Reason: Protocol Stop: 06/11/17 11:01 Last Admin: 06/03/17 10:05 Dose: 100 mls/hr Milrinone Lactate/Dextrose (Primacor 20mg/100ml D5w) 100 mls @ 7.28 mls/hr IV .[id number] PRN; Protocol; 0.2 MCG/KG/MIN PRN Reason: TITRATE PER MD ORDER Last Admin: 06/04/17 00:29 Dose: 0.2 mcg/kg/min, 7.28 mls/hr Linezolid (Zyvox 600mg/300ml D5w) 600 mg in 300 mls @ 200 mls/hr IVPB Q12 [facility] PRN Reason: Protocol Stop: 06/11/17 10:01 Isosorbide Mononitrate (Imdur) 30 mg PO DAILY [facility] Last Admin: 06/03/17 18:08 Dose: Not Given Lisinopril (Zestril) 20 mg PO DAILY [facility] Last Admin: 06/03/17 18:07 Dose: Not Given Metronidazole (Flagyl) 500 mg PO Q8 [facility] PRN Reason: Protocol Stop: 06/11/17 14:01 Last Admin: 06/03/17 22:14 Dose: 500 mg Ondansetron HCl (Zofran Odt) 4 mg PO Q8H PRN PRN Reason: Nausea/Vomiting Oxycodone/Acetaminophen (Percocet 5/325 Mg Tab) 1 tab PO Q6H PRN PRN Reason: Pain, severe (8-10) Stop: 06/06/17 17:17 Pantoprazole Sodium (Protonix Ec Tab) 20 mg PO 0600 [facility] Last Admin: 06/04/17 05:27 Dose: 20 mg - Labs Labs: 06/03/17 07:10 06/03/17 07:10 PT 12.0 Seconds (9.9-11.8) H 06/01/17 18:00 INR 1.11 (0.93-1.08) H 06/01/17 18:00 APTT 29.2 Seconds (23.7-30.8) 06/01/17 18:00 - Constitutional Appears: Non-toxic, No Acute Distress - Head Exam Head Exam: NORMAL INSPECTION - Neck Exam Neck Exam: absent: Meningismus - Respiratory Exam Respiratory Exam: Decreased Breath Sounds - Cardiovascular Exam Cardiovascular Exam: +S1, +S2 - GI/Abdominal Exam GI & Abdominal Exam: Soft. absent: Tenderness - Extremities Exam Additional comments: right gluteal area still with some area of induration Assessment and Plan - Assessment and Plan (Free Text) Plan: Assessment sepsis due to right gluteal purulent skin and skin structure infection S/P I and D POD #2; still spiking fevers R/O new onset sepsis - CXR showing pleural effusion probable acute NSTEMI CAD S/P PCI chronic CHF with CAD S/P PCI S/P pacemaker placement ESRD on HD HTN Plan switched antibiotics from Vancomycin, Cefepime and Flagyl to Zyvox and Merrem pending repeat pending blood and urine cx; follow up final wound cx results follow up CT chest discussed with Dr. Varner will continue to monitor clinically
--- NOTE | 2017-06-04 12:44 | PN ---
DATE: 06/04/2017 CARDIOLOGY FOLLOWUP NOTE SUBJECTIVE: The patient's breathing is still compromise. However, the patient has a temperature of 103. PHYSICAL EXAMINATION NECK: Negative JVD. LUNGS: Decreased breath sounds bilaterally. HEART: Reveal S1 and S2. EXTREMITIES: Without edema. LABORATORY DATA: Hemoglobin is 9.7. Chemistries; creatinine is 8.2. IMPRESSION 1. End-stage dilated cardiomyopathy with ejection fraction of approximately 25%. 2. Acute systolic congestive heart failure. 3. End-stage renal disease. 4. Sepsis. 5. Headaches. 6. Chronic dyspnea. PLAN: 1. Given these findings, we will increase his Primacor to 0.375 mcg per kilogram. 2. The patient is currently on IV antibiotics. 3. We will DC the Imdur which is likely the cause of his headache as well as DC the hydrochlorothiazide which likely has no effect given his end-stage renal disease. Sandro Horner MD
--- NOTE | 2017-06-04 13:43 | CT ---
PROCEDURE: CT Abdomen and Pelvis without intravenous contrast HISTORY: abscess COMPARISON: None. TECHNIQUE: Without contrast.. Contrast Dose: Radiation dose: Total exam DLP = 1172 mGy-cm. This CT exam was performed using one or more of the following dose reduction techniques: Automated exposure control, adjustment of the mA and/or kV according to patient size, and/or use of iterative reconstruction technique. FINDINGS: LOWER THORAX: There is a small right pleural effusion and consolidation at the right lung base. Moderate cardiomegaly LIVER: Unremarkable. No gross lesion or ductal dilatation. GALLBLADDER AND BILE DUCTS: The gallbladder is contracted PANCREAS: Unremarkable. No gross lesion or ductal dilatation. SPLEEN: Unremarkable. ADRENALS: Unremarkable. No mass. KIDNEYS AND URETERS: Unremarkable. No hydronephrosis. No solid mass. VASCULATURE: Unremarkable. No aortic aneurysm. BOWEL: Unremarkable. No obstruction. No gross mural thickening. APPENDIX: Unremarkable. Normal appendix. PERITONEUM: There is a 2 cm fat containing umbilical hernia seen on image 93. LYMPH NODES: Mildly enlarged bilateral inguinal lymph nodes BLADDER: Unremarkable. REPRODUCTIVE: Unremarkable. BONES: No acute fracture. OTHER FINDINGS: None. IMPRESSION: 2 cm fact containing umbilical hernia. Small right pleural effusion with adjacent atelectasis. No acute findings
--- NOTE | 2017-06-04 15:23 | PN ---
DATE: SUBJECTIVE: The patient is currently seen on telemetry. He is status post I and D of a right buttock abscess. 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 MEDICATIONS: List reviewed the patient is on Coreg, meropenem, p.r.n. Percocet, Primacor drip, Protonix, Tylenol p.r.n., Zestril, Zofran p.r.n., and Zyvox. OBJECTIVE: VITAL SIGNS: Intake 428 and output 60 plus hemodialysis. Blood pressure 102/60, temperature 98.6, respiratory rate 19, with a pulse of 105. HEENT: Shows him to be normocephalic and atraumatic. Conjunctivae are pale. Sclerae are nonicteric. NECK: Supple. No neck vein distention. CHEST: Clear to auscultation and percussion. No rales. No rhonchi. No wheezing. CARDIOVASCULAR: Shows regular rate and rhythm without audible murmurs, rubs or gallops. ABDOMEN: Soft, bowel sounds normal. No rebound, no guarding, no masses. Back and buttock area showed resting over his right gluteal abscess which was incised and drained. EXTREMITIES: Left upper extremity AV fistula, positive thrill, positive bruit. No more extremity edema. LABORATORY DATA AND IMAGING: Microbiology; all cultures are negative to date. Wound culture is negative at 48 hours. CBC: White blood cell count 4.0, hemoglobin 9.7 with a platelet count of 66,000. Chemistries showed normal electrolytes. BUN 28 with a creatinine of 8.2, calcium 7.8, phosphorus was 4.8, magnesium level of 2.2, bilirubin 1.8. Liver enzymes are normal. Troponin are mildly elevated in a 0.24-0.25 range likely secondary to chronic kidney disease. ASSESSMENT: 1. Status post incision and drainage of a right-sided gluteal abscess. The patient will continue on IV antibiotic therapy. Final cultures are pending. 2. History of end-stage renal disease. The patient dialyzes up in [place] with Dr. Whitten. The patient will dialyze tomorrow in the hospital as per his routine. 3. History of hypertension with hypertensive cardiomyopathy, dilated cardiomyopathy, ejection fraction of 25%. Status post permanent pacemaker. 4. History of anemia secondary to chronic kidney disease. The patient will continue on Aranesp per protocol. 5. Mild elevation of troponin likely secondary to chronic kidney disease rather than coronary ischemia. 6. History of secondary hyperparathyroidism. The patient apparently takes no binders at home. Phosphorus level was 4.8, should his phosphorus level rise above 5.0, start the patient on binder therapy. PLAN: 1. Aranesp with dialysis tomorrow. 2. Complete the course of antibiotic therapy pending cultures. 3. Local wound care for the incision and drainage of his right gluteal abscess. 4. Continue Primacor as per Cardiology for his diverted cardiomyopathy. 5. Culture and followup during hospitalization. 6. Upon discharge, the patient will return back to [facility] under the care of Dr. Darren Whitten. Junior Edwards MD MTDD
[2017-06-04 18:47] LABS: PH,URINE 8.5 (4.7-8.0); URINE APPEARANCE SL CLOUDY (CLEAR); URINE BILIRUBIN NEGATIVE (NEGATIVE); URINE BLOOD TRACE-LYSED (NEGATIVE); URINE COLOR YELLOW (YELLOW); URINE GLUCOSE (UA) 100 mg/dL (NEGATIVE); URINE KETONE NEGATIVE (NEGATIVE); URINE LEUKOCYTE ESTERASE NEGATIVE Leu/uL (NEGATIVE); URINE PROTEIN 100 mg/dL (<30 mg/dL); URINE UROBILINOGEN 0.2 E.U./dL (<1 E.U./dL)
[2017-06-04 19:00] LABS: URINE BACTERIA FEW (NEG); URINE EPITHELIAL CELLS 0 - 2 /hpf (0-5); URINE RBC NEGATIVE /hpf (0-2)
--- NOTE | 2017-06-04 19:14 | CARD ---
APPROVED REPORT EKG Measurement Heart [id number] <Conclusion> Sinus tachycardia with premature atrial complexes Left axis deviation ST & T wave abnormality, consider lateral ischemia Abnormal ECG
--- NOTE | 2017-06-05 00:41 | PN ---
DATE: 06/04/2017 SUBJECTIVE: The patient is seen lying in the bed in room 271, bed 2. The patient is seen lying in the bed talking on the telephone. The patient does not appear to be in any distress. Overnight nurse's notes were reviewed. Telemetry shows sinus rhythm, sinus tachycardia in the last 24 hours. PHYSICAL EXAMINATION: VITAL SIGNS: In the last 24 hours T-max of 102.8. Heart rate in the last 24 hours in 120s, 110,105. Blood pressure 135/71, 119/81, 142/103, 123/87. Respiration is 19-20. O2 sat is 95% to 98%. HEENT: Head normocephalic, atraumatic. Shows pinkish pale conjunctiva and anicteric sclerae. No oropharyngeal lesion. NECK: No neck rigidity. CHEST: Positive upper chest ICD noted. Questionable decreased breath sound at the bases noted. Positive rhonchi noted. ABDOMEN: Soft. Positive bowel sound. GENITALIA: Male. EXTREMITIES: Positive upper extremity dialysis catheter noted. Lower extremity shows 2+ pitting edema of the lower extremity. MUSCULOSKELETAL: Shows a body mass index of 34. NEUROLOGIC: The patient is alert, awake, oriented x3. He is able to move upper lower extremity without assistance. VASCULAR: Palpable pulses. PSYCHIATRIC: Negative. DIAGNOSTICS: From 06/04, WBC 4.0, hemoglobin/hematocrit 9.7 and 30.4, platelet 66,000. Sodium 135, potassium 4.3, chloride 94, CO2 of 29, anion gap 16, BUN 28, creatinine 8.2, GFR of 9, glucose 78, calcium 9.2, total bili 1.8, peak troponin is 0.25, down to 0.24. LFTs are normal. Urinalysis noted. RPR treponema pallidum and HIV negative. The patient's right gluteal and buttock area shows induration and tender and warm to touch. The patient's CT scan of the abdomen and pelvis from admission, CT of the chest and pelvis from today and chest x-ray from 06/01 and 06/04 reviewed and explained to the patient. EKG from today shows sinus tachycardia. Questionable inferolateral ischemic changes. CURRENT MEDICATIONS: The patient received Aranesp 60 mcg IV once, on dialysis tomorrow. The patient is on Coreg 25 twice a day, meropenem 500 IV q. 12, Percocet 5/325 one tablet q. 6 p.r.n. The patient is started on IV milrinone drip at 0.375 mcg/kg/min, Protonix 20 mg daily, Tylenol 650 q. 4 p.r.n. for temperature greater than 99.5. The patient has been given vancomycin 2 g once, Zestril 20 mg daily, Zofran 4 mg p.o. q. 8 p.r.n., Zyvox 600 mg q. 12 as per infectious disease. IMPRESSION: 1. Right gluteal abscess cellulitis. 2. Nonsustained ventricular tachycardia. 3. Chest pain. 4. Sinus tachycardia. 5. Status post uncontrolled hypertension. 6. Leukopenia, anemia, thrombocytopenia, pancytopenia. 7. End-stage renal disease, hemodialysis dependent. 8. Chest pain with elevated troponin, etiology unclear in end stage renal dialysis patient. 9. Mild hyperbilirubinemia. 10. Proteinuria, microscopic hematuria, pyuria, bacteriuria. 11. Sinus tachycardia with left axis deviation and inferolateral ischemic changes. 12. Possible right lower lobe pneumonia. 13. Cardiomegaly. 14. Nonsustained ventricular tachycardia, asymptomatic. 15. Right pleural effusion. 16. Questionable bladder wall thickening with prostatomegaly. 17. Small umbilical hernia. 18. Right buttock abscess. 19. Possible cystitis. 20. Right lower lobe atelectasis versus pneumonia. 21. Left axis deviation. 22. Increasing left pleural effusion and possibly loculated left pleural effusion. 23. Right lower lobe atelectasis and pneumonia with possible pulmonary vascular congestion. 24. Increasing right pleural effusion and pathology. 25. Increasing pleural effusion. 26. Right lower lobe consolidation, cardiomegaly and right pleural effusion. 27. Umbilical hernia. 28. Bilateral inguinal lymphadenopathy. 29. End-stage renal disease, hemodialysis dependent three times a week. 30. Sepsis secondary to right gluteal abscess versus cellulitis. 31. Probable acute non-ST elevation myocardial infarction with elevated troponin. 32. Tachycardia. 33. High-grade fever of 102.8. 34. Pancytopenia. 35. Dilated cardiomyopathy. 36. Status post incision and drainage of the right-sided gluteal abscess. 37. Hypertensive cardiomyopathy. 38. Status post automatic implantable cardioverter-defibrillator implant. 39. Secondary hyperparathyroidism. 40. End-stage dilated cardiomyopathy with ejection fraction of 25%. 41. Acute on chronic recurrent systolic congestive heart failure with dilated cardiomyopathy. 42. IV milrinone dependent. 43. Hypertension. PLAN: At this time, the patient has been ordered repeat labs. The patient has been ordered TB QuantiFeron. Blood cultures repeat has been ordered. The patient has been ordered urine cultures. The patient is currently being followed by nephrology, cardiology, infectious disease and surgery. HIV is negative. The patient is on renal diet, MAMADOU stockings, SCDs. At present, the patient's further management is dependent upon the recommendation from all the physician involved in the care of the patient, which has been explained to the patient at layman's language. All questions concerned answered. At this time, the patient will be continued on the above therapeutic intervention as outlined. The patient has been advised out of bed to chair. The patient has been advised ambulation therapy. The patient has been explained about the details of his medical condition, which he acknowledged understand. The patient has been reemphasized about compliance. Surgical evaluation has been ordered for evaluation of the right gluteal abscess, because of the new high-grade fever. Dictated and electronically signed, not read. Refugio Varner MD MTDD
[2017-06-05] MEDS: Milrinone 20mg/100ml D5W 100 ML IV PRN ×4 (01:39→18:06)
[2017-06-05] MEDS: Pantoprazole 20 mg EC Tab PO SCH (05:11)
--- NOTE | 2017-06-05 07:01 | CP.PCM.PN ---
<Rivka Menchaca - Last Filed: 06/06/17 10:02> Subjective - Date & Time of Evaluation Date of Evaluation: 06/05/17 Time of Evaluation: 06:57 - Subjective Subjective: Internal medicine progress note for Dr. Rolando Menchaca, PGY-1 Pt S & E at bedside. Pt reports LE pain 2/2 laying in bed, requesting SCDs; SOB, lightheadedness with position changes, decreased appetite; no fevers since yesterday AM. Denies N/V/C, CP, ab pain, Right gluteal pain. No acute events overnight as per nursing, with some tachycardia in low 100's. Objective - Vital Signs/Intake and Output Vital Signs (last 24 hours): Temp Pulse Resp BP Pulse Ox 99.2 F 111 H 20 126/55 L 92 L 06/05/17 06:00 06/05/17 06:00 06/05/17 06:00 06/05/17 06:00 06/05/17 06:00 Intake and Output: 06/04/17 06/05/17 18:59 06:59 Intake Total 100 1569 Output Total 400 Balance 100 1169 - Medications Medications: Current Medications Acetaminophen (Tylenol 325mg Tab) 650 mg PO Q4H PRN PRN Reason: TEMP>=99.5F Last Admin: 06/05/17 05:10 Dose: 650 mg Carvedilol (Coreg) 25 mg PO BID REED Last Admin: 06/04/17 18:22 Dose: 25 mg Linezolid (Zyvox 600mg/300ml D5w) 600 mg in 300 mls @ 200 mls/hr IVPB Q12 REED PRN Reason: Protocol Stop: 06/11/17 10:01 Last Admin: 06/04/17 21:36 Dose: 200 mls/hr Meropenem 500 mg/ Sodium (Chloride) 100 mls @ 100 mls/hr IVPB Q12 REED PRN Reason: Protocol Stop: 06/11/17 06:57 Last Admin: 06/04/17 21:35 Dose: 100 mls/hr Milrinone Lactate/Dextrose (Primacor 20mg/100ml D5w) 100 mls @ 13.65 mls/hr IV .Q7H20M PRN; Protocol; 0.375 MCG/KG/MIN PRN Reason: TITRATE PER MD ORDER Last Admin: 06/05/17 01:39 Dose: 0.375 mcg/kg/min, 13.65 mls/hr Lisinopril (Zestril) 20 mg PO DAILY COUNT INCLUDES THE [facility] Last Admin: 06/04/17 09:53 Dose: 20 mg Ondansetron HCl (Zofran Odt) 4 mg PO Q8H PRN PRN Reason: Nausea/Vomiting Oxycodone/Acetaminophen (Percocet 5/325 Mg Tab) 1 tab PO Q6H PRN PRN Reason: Pain, severe (8-10) Stop: 06/06/17 17:17 Pantoprazole Sodium (Protonix Ec Tab) 20 mg PO 0600 COUNT INCLUDES THE [facility] Last Admin: 06/05/17 05:11 Dose: 20 mg - Labs Labs: 06/04/17 07:30 06/04/17 07:30 PT 12.0 Seconds (9.9-11.8) H 06/01/17 18:00 INR 1.11 (0.93-1.08) H 06/01/17 18:00 APTT 29.2 Seconds (23.7-30.8) 06/01/17 18:00 - Constitutional Appears: Non-toxic, No Acute Distress - Head Exam Head Exam: ATRAUMATIC, NORMAL INSPECTION, NORMOCEPHALIC - Eye Exam Eye Exam: EOMI, Normal appearance - ENT Exam ENT Exam: Mucous Membranes Moist, Normal Exam - Neck Exam Neck Exam: Full ROM - Respiratory Exam Respiratory Exam: Decreased Breath Sounds (over right base), NORMAL BREATHING PATTERN. absent: Clear to Ausculation Bilateral, Prolonged Expiratory Phase, Rales, Rhonchi, Wheezes, Respiratory Distress - Cardiovascular Exam Cardiovascular Exam: Tachycardia, +S1, +S2 - GI/Abdominal Exam GI & Abdominal Exam: Soft, Hernia (umbilicial), Normal Bowel Sounds. absent: Distended, Tenderness - Extremities Exam Extremities Exam: Normal Inspection. absent: Tenderness - Back Exam Back Exam: NORMAL INSPECTION - Neurological Exam Neurological Exam: Alert, Awake, CN II-XII Intact, Oriented x3 - Psychiatric Exam Psychiatric exam: Normal Affect, Normal Mood - Skin Skin Exam: Dry, Normal Color, Warm. absent: Intact (Right infragluteal area with small I & D site with bandaid covering- C/D/I, no fluctuance, minimal induration, no drainage noted) Assessment and Plan - Assessment and Plan (Free Text) Assessment: 37Y AA Male w/PMH ESRD on HD (MWF), HTN, cardiomyopathy s/p AICD placement who was admitted for R gluteal abscess s/p I&D POD # 3. No fevers since yesterday AM. With some tachycardia in low 100's overnight. Plan: Fever Tmax 103 at 8AM yesterday None overnight IS FU repeat Blood cx FU repeat urine cx FU Quant FU Mycobacterium Cx U/A neg for LE or nitrates CT pelvis -2 cm fact containing umbilical hernia. Sm R pleural effusion with adjacent atelectasis. CT chest - Sm R pleural effusion with adjacent atelectasis. Severe cardiomegaly Tylenol PRN Zyvox, Merrem HIV Neg T pallidum neg RPR neg ID following: switched Abx from Vancomycin, Cefepime and Flagyl to Zyvox and Merrem pending repeat pending blood and urine cx; follow up final wound cx results Vtach - none overnight On milrinone drip EKG- Sinus tach w/PACs, L axis deviation, ST & T wave abnormality- consider lateral ischemia Cardio following -Increase Primacor to 0.375mg/kg, d/c Imdur & HCTZ R gluteal abscess s/p I & D POD #3 Cont Merrem Cont Zyvox Pain regimen ID following Surgery following- pt for re-I & D tomorrow HTN Coreg to Lopressor Cont Lisinopril CHF on milrinone drip Strict I&O HOB elevated Aspiration precaution Daily wts ESRD on HD BUN 28 Cr 8.2 For HD today Nephro following Cont HD schedule (MWF) Pancytopenia D/c'd Zofran Heme consulted GI/DVT ppx Protonix SCDs TEDs Ambulate Dispo: Will order PICC line tomorrow after afebrile x 24H Ambulate For OR tomorrow DW attending Bernarda, PGY-1 <Refugio Varner U - Last Filed: 07/03/17 21:21> Objective - Vital Signs/Intake and Output Vital Signs (last 24 hours): Temp Pulse Resp BP Pulse Ox 98.7 F 80 18 158/91 H 94 L 06/09/17 11:54 06/09/17 17:56 06/09/17 11:54 06/09/17 17:56 06/09/17 06:00 - Labs Labs: 06/09/17 07:20 06/09/17 07:20 PT 12.7 Seconds (9.9-11.8) H 06/06/17 06:30 INR 1.18 (0.93-1.08) H 06/06/17 06:30 APTT 34.4 Seconds (23.7-30.8) H 06/06/17 06:30 Attending/Attestation - Attestation I have personally seen and examined this patient.: Yes I have fully participated in the care of the patient.: Yes I have reviewed all pertinent clinical information, including history, physical exam and plan: Yes
[2017-06-05 07:34] LABS: MEAN CELL VOLUME 91.5 fl (80.0-105.0); MEAN CORPUSCULAR HEMOGLOBIN 30.1 pg (25.0-35.0); MEAN CORPUSCULAR HGB CONC 32.9 g/dl (31.0-37.0); MEAN PLATELET VOLUME 10.2 fl (7.0-11.0); RED CELL DISTRIBUTION WIDTH 14.2 % (11.5-14.5); WHITE BLOOD COUNT 3.3 10^3/ul (4.5-11.0)
[2017-06-05 07:56] LABS: BILIRUBIN,TOTAL 1.5 mg/dL (0.2-1.3); POTASSIUM 4.2 mmol/L (3.6-5.0); TOTAL PROTEIN 6.5 g/dL (5.8-8.3)
--- NOTE | 2017-06-05 08:38 | CP.PCM.PCO ---
Physician Communication Note - Physician Communication Note Physician Communication Note: Weight gaining! CHF- wound cleaning up/Dialysis today
--- NOTE | 2017-06-05 10:28 | CP.PCM.PCO ---
Physician Communication Note - Physician Communication Note Physician Communication Note: Re I & D in OR 06/06/17
[2017-06-05] MEDS: Meropenem 500 MG in Sodium Chloride 0.9% 100 ML IVPB SCH ×2 (11:09→21:04)
[2017-06-05] MEDS: Darbepoetin Alfa 60 mcg/ml Inj IV ONE ×2 (11:11→14:42)
--- NOTE | 2017-06-05 12:19 | CP.PCM.PN ---
Subjective - Date & Time of Evaluation Date of Evaluation: 06/05/17 Time of Evaluation: 10:00 - Subjective Subjective: Less pain the right gluteal area, no fevers overnight, no SOB, no cough. Objective - Vital Signs/Intake and Output Vital Signs (last 24 hours): Temp Pulse Resp BP Pulse Ox 99.2 F 111 H 20 126/55 L 92 L 06/05/17 06:00 06/05/17 06:00 06/05/17 06:00 06/05/17 06:00 06/05/17 06:00 Intake and Output: 06/04/17 06/05/17 18:59 06:59 Intake Total 100 1569 Output Total 400 Balance 100 1169 - Medications Medications: Current Medications Acetaminophen (Tylenol 325mg Tab) 650 mg PO Q4H PRN PRN Reason: TEMP>=99.5F Last Admin: 06/05/17 05:10 Dose: 650 mg Carvedilol (Coreg) 25 mg PO BID [facility] Last Admin: 06/04/17 18:22 Dose: 25 mg Linezolid (Zyvox 600mg/300ml D5w) 600 mg in 300 mls @ 200 mls/hr IVPB Q12 REED PRN Reason: Protocol Stop: 06/11/17 10:01 Last Admin: 06/04/17 21:36 Dose: 200 mls/hr Meropenem 500 mg/ Sodium (Chloride) 100 mls @ 100 mls/hr IVPB Q12 REED PRN Reason: Protocol Stop: 06/11/17 06:57 Last Admin: 06/04/17 21:35 Dose: 100 mls/hr Milrinone Lactate/Dextrose (Primacor 20mg/100ml D5w) 100 mls @ 13.65 mls/hr IV .Q7H20M PRN; Protocol; 0.375 MCG/KG/MIN PRN Reason: TITRATE PER MD ORDER Last Admin: 06/05/17 01:39 Dose: 0.375 mcg/kg/min, 13.65 mls/hr Lisinopril (Zestril) 20 mg PO DAILY [facility] Last Admin: 06/04/17 09:53 Dose: 20 mg Ondansetron HCl (Zofran Odt) 4 mg PO Q8H PRN PRN Reason: Nausea/Vomiting Oxycodone/Acetaminophen (Percocet 5/325 Mg Tab) 1 tab PO Q6H PRN PRN Reason: Pain, severe (8-10) Stop: 06/06/17 17:17 Pantoprazole Sodium (Protonix Ec Tab) 20 mg PO 0600 REED Last Admin: 06/05/17 05:11 Dose: 20 mg - Labs Labs: 06/04/17 07:30 06/04/17 07:30 PT 12.0 Seconds (9.9-11.8) H 06/01/17 18:00 INR 1.11 (0.93-1.08) H 06/01/17 18:00 APTT 29.2 Seconds (23.7-30.8) 06/01/17 18:00 - Constitutional Appears: Non-toxic, No Acute Distress - Head Exam Head Exam: NORMAL INSPECTION - ENT Exam ENT Exam: Mucous Membranes Moist - Neck Exam Neck Exam: absent: Lymphadenopathy, Meningismus - Respiratory Exam Respiratory Exam: Decreased Breath Sounds - Cardiovascular Exam Cardiovascular Exam: +S1, +S2 - GI/Abdominal Exam GI & Abdominal Exam: Soft. absent: Tenderness - Extremities Exam Additional comments: right gluteal area with dressings in place Assessment and Plan - Assessment and Plan (Free Text) Plan: Assessment sepsis due to right gluteal purulent skin and skin structure infection S/P I and D POD #3; repeat septic so far is negative probable acute NSTEMI pancytopenia, etiology to be determined CAD S/P PCI chronic CHF with CAD S/P PCI S/P pacemaker placement ESRD on HD HTN Plan swill hold off on Zyvox (since he has thrombocytopenia) and switch to Doxycycline and continue Merrem; repeat blood cx is negative so far; wound cx from first I and D is negative - patient may go for repeat I and D tomorrow follow up Heme/Onc evaluation for pancytopenia reviewed CT chest which shows right pleural effusion with atelectasis will continue to monitor clinically
[2017-06-05 14:12] LABS: MAGNESIUM 1.9 mg/dL (1.7-2.2); PHOSPHOROUS 3.9 mg/dL (2.5-4.5)
--- NOTE | 2017-06-05 15:16 | PN ---
DATE: 06/05/2017 SUBJECTIVE: The patient's breathing is unchanged. PHYSICAL EXAMINATION: VITAL SIGNS: Blood pressure 132/82, heart rate approximately 100. NECK: Negative JVD. LUNGS: Without rales. CARDIOVASCULAR: S1 and S2. EXTREMITIES: Without change. LABORATORY DATA: Hemoglobin is 9.2. Chemistries are unchanged. ASSESSMENT: 1. Sepsis with some signs of improvement 2. Dilated cardiomyopathy. 3. End-stage renal disease. 4. Acute systolic congestive heart failure. 5. Chronic dyspnea. PLAN: Given these findings, we will we will taper off Primacort. In addition, I have discussed with Dr. Traylor. His note with the patient as non-STEMI, may not be true. The fax are against the patient having a non-STEMI. His elevated troponin secondary to his renal disease. Sandro Horner MD cc:
--- NOTE | 2017-06-05 16:26 | PN ---
SUBJECTIVE: The patient is currently seen in dialysis. He is having 3.5 liters of fluid removed. His blood pressure is stable. He is tolerating the treatment well. He states he needs to go back for another incision and drainage of the right-sided gluteal abscess. There are plans for placement of PICC line in his right upper extremity in order to facilitate discharge. He does have an excellent working left upper extremity AV fistula. MEDICATIONS: Medication list reviewed. The patient is currently on doxycycline, Lopressor, Meropenem, oxycodone, Primacor, Protonix, Tylenol, and Lisinopril. OBJECTIVE: INTAKE/OUTPUT: 1669/400. VITAL SIGNS: Blood pressure on dialysis presently is 140/67 with heart rate of 100. Temperature is 97.1. Respiratory rate 19. HEENT: Normocephalic, atraumatic. Conjunctiva are pale. Sclerae are non-icteric. NECK: Supple. No neck vein distention. CHEST: Clear to auscultation and percussion. No rales or rhonchi. No wheezing. CARDIOVASCULAR: Regular rate and rhythm without murmurs, rubs or gallops. ABDOMEN: Soft. Bowel sounds normal. No rebound, no guarding, no masses. Back and buttock area, positive right gluteal abscess dressing in place. EXTREMITIES: Left upper extremity AV fistula is cannulated with blood flow rates of 500 mL/min. No lower extremity edema. LABORATORY DATA AND IMAGING: White blood cell count today down to 3.3, hemoglobin 9.2 with a platelet count of 56,000. Chemistries showed normal electrolytes. BUN 43 with a creatinine of 10.8, glucose is 94. Calcium 9.0, phosphorus level is pending, bilirubin 1.5 with normal liver enzymes. Albumin level is 3.3. Microbiology, blood cultures were negative. Wound cultures were negative. ASSESSMENT: 1. Status post incision and drainage of a right-sided gluteal abscess. The patient will remain on IV antibiotics therapy. The patient is scheduled for a repeat drainage procedure according to the patient. 2. History of end stage renal disease. The patient will likely return to the care of Dr. Darren Whitten in [facility] renal center.. 3. History of hypertension with hypertensive cardiomyopathy with ejection fraction of 25% status post pacemaker. The patient appears to be well compensated. 4. History of anemia secondary to chronic kidney disease. The patient will continue Aranesp per protocol, on dialysis. 5. Mild elevation of troponin secondary to chronic kidney disease. No evidence for coronary ischemia. History of secondary hyperparathyroidism. The patient's phosphorus level is 4.8 from previous. Repeat phosphorus level is pending. If phosphorus level increases to greater than 5, the patient will need to start binder therapy. PLAN: 1. Aranesp with dialysis today. 2. Complete course of antibiotic therapy, pending the cultures. 3. The patient will likely have another incision and drainage of the gluteal abscess. 4. He is okay from Renal standpoint to have a PICC line in his right upper extremity in order to facilitate discharge. 5. Continue Primacor as per cardiology for his dilated cardiomyopathy. 6. The patient will likely return back to his dialysis center in [place] under the care of Dr. Darren Whitten upon discharge. Junior Edwards MD MTDD
--- NOTE | 2017-06-05 17:06 | PN ---
DATE: 06/05/2017 SUBJECTIVE: The patient is seen in room 271, bed 2. The patient was seen and examined with Dr. Garcia and the medical doctor md. OBJECTIVE: VITAL SIGNS: The patient's T-max is 103 degrees. Telemetry shows sinus rhythm, sinus tachycardia in low 100s. Blood pressure is 126/55, 106/53, 135/71, 102/60, 150/73. Respirations 20. O2 sat is 92-95, mid 90s. HEAD: Normocephalic, atraumatic. EENT: Shows pinkish pale conjunctivae. Anicteric sclerae. No oropharyngeal lesion. NECK: No neck rigidity. CHEST: Shows positive upper chest defibrillator. LUNGS: Shows decreased breath sounds at the bases, questionable rhonchi. CARDIOVASCULAR: S1 and S2 regular rhythm. Positive systolic murmur left sternal border, right second intercostal space. ABDOMEN: Soft. Positive bowel sounds. GENITALIA: Male. RECTAL: Deferred. EXTREMITIES: Shows positive SCDs, positive edema. The patient's right gluteal area was examined with the surgery. The patient was still found to have an indurated area on the right buttock area, which is warm to touch. MUSCULOSKELETAL: Shows a body mass index of 35. Cranial nerves II through XII limited. Gait examination could not be tested. DIAGNOSTIC DATA: On June 05, WBC 3.3, hemoglobin/hematocrit 9.2/28.0, platelet 56,000. Sodium 132, potassium 4.2, chloride 95, CO2 is 26, anion gap 15, BUN 43, creatinine 10.8, GFR 6, glucose 94, calcium 9.0. Total bili 1.5. Urine protein 100, urine glucose 100, blood trace. RPR negative. HIV nonreactive. Blood cultures, wound cultures are no growth. Chest CT, x-rays, abdominal and pelvic CT reviewed. EKG shows sinus tachycardia, left axis deviation, questionable right ventricular conduction delay. As mentioned, the patient seen and examined with Dr. Radhames Armstrong from surgery. Plan is to reopen and redo the incision and drainage of the right gluteal abscess. IMPRESSION AND PLAN 1. Right gluteal abscess versus cellulitis versus skin infection with high-grade fever of 103 degrees Fahrenheit. 2. Tachycardia. 3. History of hypertension. 4. History of noncompliance. 5. Episodic transient hypertension. 6. Pancytopenia with leukopenia, anemia, thrombocytopenia. 7. End-stage renal disease, hemodialysis dependent, three times a week. 8. Questionable non-ST elevation myocardial infarction with elevated troponin. 9. Proteinuria, glycosuria, microscopic hematuria, pyuria, bacteriuria. 10. Pancytopenia. 11. Right lower lobe consolidation and pleural effusion. 12. Cardiomegaly. 13. A 2-cm fat containing umbilical hernia. 14. Enlarged bilateral inguinal lymphadenopathy. 15. Sinus tachycardia with left axis deviation and questionable lateral ischemic changes on the EKG. 16. Left anterior hemiblock. 1. Right gluteal abscess cellulitis. 2. Nonsustained ventricular tachycardia. 3. Chest pain. 4. Sinus tachycardia. 5. Status post uncontrolled hypertension. 6. Leukopenia, anemia, thrombocytopenia, pancytopenia. 7. End-stage renal disease, hemodialysis dependent. 8. Chest pain with elevated troponin, etiology unclear in end stage renal dialysis patient. 9. Mild hyperbilirubinemia. 10. Proteinuria, microscopic hematuria, pyuria, bacteriuria. 11. Sinus tachycardia with left axis deviation and inferolateral ischemic changes. 12. Possible right lower lobe pneumonia. 13. Cardiomegaly. 14. Nonsustained ventricular tachycardia, asymptomatic. 15. Right pleural effusion. 16. Questionable bladder wall thickening with prostatomegaly. 17. Small umbilical hernia. 18. Right buttock abscess. 19. Possible cystitis. 20. Right lower lobe atelectasis versus pneumonia. 21. Left axis deviation. 22. Increasing left pleural effusion and possibly loculated left pleural effusion. 23. Right lower lobe atelectasis and pneumonia with possible pulmonary vascular congestion. 24. Increasing right pleural effusion and pathology. 25. Increasing pleural effusion. 26. Right lower lobe consolidation, cardiomegaly and right pleural effusion. 27. Umbilical hernia. 28. Bilateral inguinal lymphadenopathy. 29. End-stage renal disease, hemodialysis dependent three times a week. 30. Sepsis secondary to right gluteal abscess versus cellulitis. 31. Probable acute non-ST elevation myocardial infarction with elevated troponin. 32. Tachycardia. 33. High-grade fever of 102.8. 34. Pancytopenia. 35. Dilated cardiomyopathy. 36. Status post incision and drainage of the right-sided gluteal abscess. 37. Hypertensive cardiomyopathy. 38. Status post automatic implantable cardioverter-defibrillator implant. 39. Secondary hyperparathyroidism. 40. End-stage dilated cardiomyopathy with ejection fraction of 25%. 41. Acute on chronic recurrent systolic congestive heart failure with dilated cardiomyopathy. 42. IV milrinone dependent. 43. Hypertension. 1. Right gluteal abscess cellulitis. 2. Nonsustained ventricular tachycardia. 3. Chest pain. 4. Sinus tachycardia. 5. Status post uncontrolled hypertension. 6. Leukopenia, anemia, thrombocytopenia, pancytopenia. 7. End-stage renal disease, hemodialysis dependent. 8. Chest pain with elevated troponin, etiology unclear in end stage renal dialysis patient. 9. Mild hyperbilirubinemia. 10. Proteinuria, microscopic hematuria, pyuria, bacteriuria. 11. Sinus tachycardia with left axis deviation and inferolateral ischemic changes. 12. Possible right lower lobe pneumonia. 13. Cardiomegaly. 14. Nonsustained ventricular tachycardia, asymptomatic. 15. Right pleural effusion. 16. Questionable bladder wall thickening with prostatomegaly. 17. Small umbilical hernia. 18. Right buttock abscess. 19. Possible cystitis. 20. Right lower lobe atelectasis versus pneumonia. 21. Left axis deviation. 22. Increasing left pleural effusion and possibly loculated left pleural effusion. 23. Right lower lobe atelectasis and pneumonia with possible pulmonary vascular congestion. 24. Increasing right pleural effusion and pathology. 25. Increasing pleural effusion. 26. Right lower lobe consolidation, cardiomegaly and right pleural effusion. 27. Umbilical hernia. 28. Bilateral inguinal lymphadenopathy. 29. End-stage renal disease, hemodialysis dependent three times a week. 30. Sepsis secondary to right gluteal abscess versus cellulitis. 31. Probable acute non-ST elevation myocardial infarction with elevated troponin. 32. Tachycardia. 33. High-grade fever of 102.8. 34. Pancytopenia. 35. Dilated cardiomyopathy. 36. Status post incision and drainage of the right-sided gluteal abscess. 37. Hypertensive cardiomyopathy. 38. Status post automatic implantable cardioverter-defibrillator implant. 39. Secondary hyperparathyroidism. 40. End-stage dilated cardiomyopathy with ejection fraction of 25%. 41. Acute on chronic recurrent systolic congestive heart failure with dilated cardiomyopathy. 42. IV milrinone dependent. 43. Hypertension. PLAN: At this time, the patient has been ordered repeat CBC, CMP. QuantiFERON is pending. Repeat blood cultures are ordered. Current consultation; Nephrology, Cardiology, Infectious Disease, Surgery, Hematology/Oncology . The patient's HIV, RPR is negative. CURRENT MEDICATIONS Aranesp 60 mcg to be given today. The patient is on Vibramycin 100 mg IV q. 12, Lopressor 50 twice a day which is not a change from Coreg. Meropenem 500 IV q. 12, Percocet 5/325 q. 6 p.r.n. The patient is on Primacor drip at 0.375 mcg per kg per minute, Protonix 40 mg daily, Tylenol 650 q. 4 p.r.n. for fever. The patient received 1 g of vancomycin one dose yesterday, Zestril 20 mg daily, incentive spirometry, renal diet. At present, the patient will require a PICC line for continuation of the IV milrinone drip, which has been explained to the patient. Dictated and electronically signed, not read. Refugio Varner MD MTDD
[2017-06-06 01:53] LABS: CALCIUM 9.1 mg/dL (8.4-10.5); MAGNESIUM 1.8 mg/dL (1.7-2.2); PHOSPHOROUS 2.6 mg/dL (2.5-4.5); POTASSIUM 4.1 mmol/L (3.6-5.0)
--- NOTE | 2017-06-06 01:55 | CP.PCM.PN ---
<Dayo Bay - Last Filed: 06/06/17 01:40> Subjective - Date & Time of Evaluation Date of Evaluation: 06/06/17 Time of Evaluation: 01:40 - Subjective Subjective: I, Dr. Bay, PGY-1 DO, was verbally alerted by Nurse Moe that Mr. Danielson' s AICD had shocked him at 1:30. I was in the hallway at the time. 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 At this point, I believe his AICD went off and his HR immediately went back into 130s, sinus tachycardia. . The patient Milirinone drip was immediately stopped, cooling blankets were applied for his fever, 0.5 mg of Xanax was ordered for his anxiety after he was shocked by the AICD, and BMP, Mg, Phosphorus, Troponin I, and an EKG were ordered stat by Nurse Moe. Objective - Vital Signs/Intake and Output Vital Signs (last 24 hours): Temp Pulse Resp BP Pulse Ox 102.4 F H 128 H 20 136/65 90 L 06/06/17 01:11 06/06/17 01:11 06/05/17 23:59 06/05/17 23:59 06/05/17 21:37 Intake and Output: 06/05/17 06/06/17 18:59 06:59 Intake Total 200 Balance 200 - Medications Medications: Current Medications Acetaminophen (Tylenol 325mg Tab) 650 mg PO Q4H PRN PRN Reason: TEMP>=99.5F Last Admin: 06/05/17 20:57 Dose: 650 mg Meropenem 500 mg/ Sodium (Chloride) 100 mls @ 100 mls/hr IVPB Q12 REED PRN Reason: Protocol Stop: 06/11/17 06:57 Last Admin: 06/05/17 21:04 Dose: 100 mls/hr Doxycycline Hyclate 100 mg/ (Sodium Chloride) 100 mls @ 100 mls/hr IVPB Q12 REED PRN Reason: Protocol Last Admin: 06/05/17 21:04 Dose: 100 mls/hr Milrinone Lactate/Dextrose (Primacor 20mg/100ml D5w) 100 mls @ 7.28 mls/hr IV .[id number] PRN; Protocol; 0.2 MCG/KG/MIN PRN Reason: TITRATE PER MD ORDER Last Admin: 06/05/17 18:06 Dose: 0.2 mcg/kg/min, 7.28 mls/hr Ibuprofen (Motrin Tab) 400 mg PO Q6H PRN PRN Reason: Fever >100.4 F Last Admin: 06/06/17 00:32 Dose: 400 mg Lisinopril (Zestril) 20 mg PO DAILY [facility] Last Admin: 06/05/17 11:10 Dose: 20 mg Metoprolol Tartrate (Lopressor) 50 mg PO BID [facility] Last Admin: 06/05/17 17:11 Dose: 50 mg Oxycodone/Acetaminophen (Percocet 5/325 Mg Tab) 1 tab PO Q6H PRN PRN Reason: Pain, severe (8-10) Stop: 06/06/17 17:17 Last Admin: 06/05/17 15:13 Dose: 1 tab Pantoprazole Sodium (Protonix Ec Tab) 20 mg PO 0600 [facility] Last Admin: 06/05/17 05:11 Dose: 20 mg - Labs Labs: 06/05/17 06:30 06/05/17 06:30 PT 12.0 Seconds (9.9-11.8) H 06/01/17 18:00 INR 1.11 (0.93-1.08) H 06/01/17 18:00 APTT 29.2 Seconds (23.7-30.8) 06/01/17 18:00 <Rupal Wright - Last Filed: 06/08/17 04:03> Objective - Vital Signs/Intake and Output Vital Signs (last 24 hours): Temp Pulse Resp BP Pulse Ox 99.4 F 122 H 20 125/72 90 L 06/06/17 01:54 06/06/17 02:09 06/05/17 23:59 06/06/17 02:09 06/05/17 21:37 Intake and Output: 06/05/17 06/06/17 18:59 06:59 Intake Total 200 54 Balance 200 54 - Medications Medications: Current Medications Acetaminophen (Tylenol 325mg Tab) 650 mg PO Q4H PRN PRN Reason: TEMP>=99.5F Last Admin: 06/05/17 20:57 Dose: 650 mg Meropenem 500 mg/ Sodium (Chloride) 100 mls @ 100 mls/hr IVPB Q12 REED PRN Reason: Protocol Stop: 06/11/17 06:57 Last Admin: 06/05/17 21:04 Dose: 100 mls/hr Doxycycline Hyclate 100 mg/ (Sodium Chloride) 100 mls @ 100 mls/hr IVPB Q12 REED PRN Reason: Protocol Last Admin: 06/05/17 21:04 Dose: 100 mls/hr Milrinone Lactate/Dextrose (Primacor 20mg/100ml D5w) 100 mls @ 7.28 mls/hr IV .[id number] PRN; Protocol; 0.2 MCG/KG/MIN PRN Reason: TITRATE PER MD ORDER Last Titration: 06/06/17 01:35 Dose: 0 mcg/kg/min, 0 mls/hr Ibuprofen (Motrin Tab) 400 mg PO Q6H PRN PRN Reason: Fever >100.4 F Last Admin: 06/06/17 00:32 Dose: 400 mg Lisinopril (Zestril) 20 mg PO DAILY [facility] Last Admin: 06/05/17 11:10 Dose: 20 mg Metoprolol Tartrate (Lopressor) 50 mg PO BID [facility] Last Admin: 06/05/17 17:11 Dose: 50 mg Oxycodone/Acetaminophen (Percocet 5/325 Mg Tab) 1 tab PO Q6H PRN PRN Reason: Pain, severe (8-10) Stop: 06/06/17 17:17 Last Admin: 06/05/17 15:13 Dose: 1 tab Pantoprazole Sodium (Protonix Ec Tab) 20 mg PO 0600 [facility] Last Admin: 06/05/17 05:11 Dose: 20 mg - Labs Labs: 06/05/17 06:30 06/06/17 01:35 PT 12.0 Seconds (9.9-11.8) H 06/01/17 18:00 INR 1.11 (0.93-1.08) H 06/01/17 18:00 APTT 29.2 Seconds (23.7-30.8) 06/01/17 18:00 Attending/Attestation - Attestation I have personally seen and examined this patient.: Yes I have fully participated in the care of the patient.: Yes I have reviewed all pertinent clinical information, including history, physical exam and plan: Yes Notes (Text): DRAFT 06/06/17 03:15 Seen with ophthalmic medical assistant. # 20 angiocath was inserted in right forearm. Lopressor 5 mg IV was ordered for s tach. Patient had an episode of AICD firing. EKG- Sinus tachycardia, no acute ST T changes.
[2017-06-06] MEDS ORDERED: Metoprolol 1 mg/ml Inj IVP STA (02:03)
[2017-06-06] MEDS ORDERED: Metoprolol 1 mg/ml Inj IVP ONE (02:08)
[2017-06-06 02:11] LABS: TROPONIN I 1.74 ng/mL
[2017-06-06] MEDS: Pantoprazole 20 mg EC Tab PO SCH (05:22)
[2017-06-06 07:21] LABS: HEMATOCRIT 31.4 % (42.0-52.0); MEAN CELL VOLUME 92.6 fl (80.0-105.0); MEAN CORPUSCULAR HEMOGLOBIN 29.8 pg (25.0-35.0); MEAN CORPUSCULAR HGB CONC 32.2 g/dl (31.0-37.0); MEAN PLATELET VOLUME 10.1 fl (7.0-11.0); RED CELL DISTRIBUTION WIDTH 14.4 % (11.5-14.5); RETIC% 0.53 % (0.5-1.5)
[2017-06-06 07:36] LABS: ALB/GLOB RATIO 1.1 (1.1-1.8); BILIRUBIN,TOTAL 1.5 mg/dL (0.2-1.3); CALCIUM 8.9 mg/dL (8.4-10.5); POTASSIUM 4.3 mmol/L (3.6-5.0); TOTAL PROTEIN 6.5 g/dL (5.8-8.3)
[2017-06-06 07:39] LABS: WHITE BLOOD COUNT 2.9 10^3/ul (4.5-11.0)
[2017-06-06 07:46] LABS: TROPONIN I 1.51 ng/mL
[2017-06-06 08:05] LABS: FIBRINOGEN 308.8 mg/dL (187-400); INR 1.18 (0.93-1.08); PARTIAL THROMBOPLASTIN TIME 34.4 Seconds (23.7-30.8)
[2017-06-06] MEDS ORDERED: DAPTOmycin 500 mg Inj (Cubicin) IV ONE (08:30)
[2017-06-06] MEDS ORDERED: Amiodarone 450mg/9 ml vial IV ONE (08:45)
[2017-06-06] MEDS ORDERED: Amiodarone 150 mg/D5W 100 ml 150 MG/100 ML BAG IVPB ONE ×3 (09:00→09:45)
--- NOTE | 2017-06-06 10:20 | CP.PCM.PN ---
Subjective - Date & Time of Evaluation Date of Evaluation: 06/06/17 Time of Evaluation: 08:50 - Subjective Subjective: Patient developed fevers at 1AM and also had a run of Vtach. Currently feeling better, still with some pain in the right gluteal region. Objective - Vital Signs/Intake and Output Vital Signs (last 24 hours): Temp Pulse Resp BP Pulse Ox 98 F 101 H 20 110/59 L 96 06/06/17 06:00 06/06/17 06:00 06/06/17 06:00 06/06/17 06:00 06/06/17 06:00 Intake and Output: 06/05/17 06/06/17 18:59 06:59 Intake Total 200 54 Output Total 0 Balance 200 54 - Medications Medications: Current Medications Acetaminophen (Tylenol 325mg Tab) 650 mg PO Q4H PRN PRN Reason: TEMP>=99.5F Last Admin: 06/05/17 20:57 Dose: 650 mg Meropenem 500 mg/ Sodium (Chloride) 100 mls @ 100 mls/hr IVPB Q12 REED PRN Reason: Protocol Stop: 06/11/17 06:57 Last Admin: 06/05/17 21:04 Dose: 100 mls/hr Doxycycline Hyclate 100 mg/ (Sodium Chloride) 100 mls @ 100 mls/hr IVPB Q12 REDE PRN Reason: Protocol Last Admin: 06/05/17 21:04 Dose: 100 mls/hr Milrinone Lactate/Dextrose (Primacor 20mg/100ml D5w) 100 mls @ 7.28 mls/hr IV .[id number] PRN; Protocol; 0.2 MCG/KG/MIN PRN Reason: TITRATE PER MD ORDER Last Titration: 06/06/17 03:35 Dose: 0.2 mcg/kg/min, 7.28 mls/hr Ibuprofen (Motrin Tab) 400 mg PO Q6H PRN PRN Reason: Fever >100.4 F Last Admin: 06/06/17 00:32 Dose: 400 mg Lisinopril (Zestril) 20 mg PO DAILY [facility] Last Admin: 06/05/17 11:10 Dose: 20 mg Metoprolol Tartrate (Lopressor) 50 mg PO BID [facility] Last Admin: 06/05/17 17:11 Dose: 50 mg Oxycodone/Acetaminophen (Percocet 5/325 Mg Tab) 1 tab PO Q6H PRN PRN Reason: Pain, severe (8-10) Stop: 06/06/17 17:17 Last Admin: 06/05/17 15:13 Dose: 1 tab Pantoprazole Sodium (Protonix Ec Tab) 20 mg PO 0600 [facility] Last Admin: 06/06/17 05:22 Dose: 20 mg - Labs Labs: 06/05/17 06:30 06/06/17 01:35 PT 12.0 Seconds (9.9-11.8) H 06/01/17 18:00 INR 1.11 (0.93-1.08) H 06/01/17 18:00 APTT 29.2 Seconds (23.7-30.8) 06/01/17 18:00 - Constitutional Appears: Non-toxic, No Acute Distress - Neck Exam Neck Exam: absent: Meningismus - Respiratory Exam Respiratory Exam: Decreased Breath Sounds - Cardiovascular Exam Cardiovascular Exam: +S1, +S2 - GI/Abdominal Exam GI & Abdominal Exam: Soft. absent: Tenderness - Extremities Exam Additional comments: right gluteal area with dressings in place Assessment and Plan - Assessment and Plan (Free Text) Plan: Assessment sepsis due to right gluteal purulent skin and skin structure infection S/P I and D POD #4; repeat septic so far is negative but patient again had fever last night probable acute NSTEMI pancytopenia, etiology to be determined CAD S/P PCI chronic CHF with CAD S/P PCI S/P pacemaker placement ESRD on HD HTN Plan will hold off on Zyvox (since he has thrombocytopenia) and we have given a dose of IV Daptomycin - continue Doxycycline and Merrem and will repeat blood cx today; repeat blood cx from 2 days ago is negative; wound cx from first I and D is negative - patient may go for repeat I and D in the OR today if he has Cardiology clearance follow up Heme/Onc evaluation for pancytopenia reviewed CT chest which shows right pleural effusion with atelectasis will continue to monitor clinically
--- NOTE | 2017-06-06 10:22 | CP.PCM.PCO ---
Physician Communication Note - Physician Communication Note Physician Communication Note: OR Postponed(Cardiac problem)/T102.8-non tender now
--- NOTE | 2017-06-06 10:27 | PN ---
DATE: 06/06/2017 CARDIOLOGY FOLLOWUP NOTE SUBJECTIVE: The patient developed an episode of V-tach today which was terminated by his ICD shock. Currently, the patient is markedly anxious after his defibrillator fired. PHYSICAL EXAMINATION VITAL SIGNS: Blood pressure is 110/60 and heart rate is 100. NECK: Negative JVD. LUNGS: Without rales. HEART: Reveals S1 and S2. EXTREMITIES: Without edema. LABORATORY DATA: Potassium is 4.3. The magnesium is 1.8. Troponins were elevated to 1.74 and 1.51 with a hemoglobin of 10.1. IMPRESSION 1. Ventricular tachycardia. 2. Defibrillator firing. 3. Dilated cardiomyopathy. 4. [id number] myocardial infarction. 5. End-stage renal disease. PLAN: 1. Given these findings, we will discontinue his IV milrinone 2. We will have the [employer] interrogated his fibrillator. 3. We will start the patient on IV amiodarone. 4. I have discussed the risks and, benefits of repeat cardiac catheterization with the patient. The patient is agreeable. We will arrange for cardiac catheterization in the morning. Sandro Horner MD
[2017-06-06] MEDS: Amiodarone 360 mg/D5W 200 ml 360 MG/200 ML BAG IV SCH ×3 (10:28→18:36)
--- NOTE | 2017-06-06 10:40 | CP.PCM.PN ---
<Rivka Menchaca - Last Filed: 06/06/17 11:07> Subjective - Date & Time of Evaluation Date of Evaluation: 06/06/17 Time of Evaluation: 10:37 - Subjective Subjective: Internal medicine progress note for Dr. Rolando Menchaca, PGY-1 Pt S & E at bedside. Pt with multiple beats of Vtach overnight, ACID fired for the first time, pt very anxious s/p ACID firing, insomnia, continues with fevers, Tmax 102.8 yesterday, with nausea, fevers, chills, diarrhea, B/L LE pain (increased by TEDs ) SOB, CP and palpitations overnight. Denies emesis, abdominal pain. Objective - Vital Signs/Intake and Output Vital Signs (last 24 hours): Temp Pulse Resp BP Pulse Ox 97.3 F L 103 H 20 122/78 96 06/06/17 08:45 06/06/17 10:36 06/06/17 06:00 06/06/17 10:36 06/06/17 06:00 Intake and Output: 06/06/17 06/06/17 06:59 18:59 Intake Total 334 Output Total 0 Balance 334 - Medications Medications: Current Medications Acetaminophen (Tylenol 325mg Tab) 650 mg PO Q4H PRN PRN Reason: TEMP>=99.5F Last Admin: 06/05/17 20:57 Dose: 650 mg Meropenem 500 mg/ Sodium (Chloride) 100 mls @ 100 mls/hr IVPB Q12 REED PRN Reason: Protocol Stop: 06/11/17 06:57 Last Admin: 06/05/17 21:04 Dose: 100 mls/hr Doxycycline Hyclate 100 mg/ (Sodium Chloride) 100 mls @ 100 mls/hr IVPB Q12 REED PRN Reason: Protocol Last Admin: 06/05/17 21:04 Dose: 100 mls/hr Milrinone Lactate/Dextrose (Primacor 20mg/100ml D5w) 100 mls @ 7.28 mls/hr IV .[id number] PRN; Protocol; 0.2 MCG/KG/MIN PRN Reason: TITRATE PER MD ORDER Last Titration: 06/06/17 03:35 Dose: 0.2 mcg/kg/min, 7.28 mls/hr Amiodarone HCl/Dextrose (Nexterone 360 Mg In D5w 200 Ml (Premix)) 360 mg in 200 mls @ 33.333 mls/hr IV .Q6H REED; 1 MG/MIN PRN Reason: Protocol Last Admin: 06/06/17 10:28 Dose: 33.333 mls/hr Amiodarone HCl/Dextrose (Nexterone 360 Mg In D5w 200 Ml (Premix)) 360 mg in 200 mls @ 16.667 mls/hr IV .Q12H REED; 0.5 MG/MIN PRN Reason: Protocol Stop: 06/07/17 12:00 Lisinopril (Zestril) 20 mg PO DAILY [facility] Last Admin: 06/06/17 10:36 Dose: 20 mg Metoprolol Tartrate (Lopressor) 50 mg PO BID [facility] Last Admin: 06/06/17 10:34 Dose: 50 mg Oxycodone/Acetaminophen (Percocet 5/325 Mg Tab) 1 tab PO Q6H PRN PRN Reason: Pain, severe (8-10) Stop: 06/06/17 17:17 Last Admin: 06/05/17 15:13 Dose: 1 tab Pantoprazole Sodium (Protonix Ec Tab) 20 mg PO 0600 [facility] Last Admin: 06/06/17 05:22 Dose: 20 mg - Labs Labs: 06/06/17 06:30 06/06/17 06:30 PT 12.7 Seconds (9.9-11.8) H 06/06/17 06:30 INR 1.18 (0.93-1.08) H 06/06/17 06:30 APTT 34.4 Seconds (23.7-30.8) H 06/06/17 06:30 - Constitutional Appears: Non-toxic, No Acute Distress, Other (tired) - Head Exam Head Exam: ATRAUMATIC, NORMAL INSPECTION, NORMOCEPHALIC - Eye Exam Eye Exam: EOMI, Normal appearance - ENT Exam ENT Exam: Mucous Membranes Moist, Normal Exam - Neck Exam Neck Exam: Full ROM, Normal Inspection - Respiratory Exam Respiratory Exam: Decreased Breath Sounds (Bases B/L), NORMAL BREATHING PATTERN. absent: Accessory Muscle Use, Chest Wall Tenderness, Clear to Ausculation Bilateral, Prolonged Expiratory Phase, Rales, Rhonchi, Wheezes, Respiratory Distress, Stridor - Cardiovascular Exam Cardiovascular Exam: Tachycardia, +S1, +S2 - GI/Abdominal Exam GI & Abdominal Exam: Soft, Normal Bowel Sounds. absent: Distended, Tenderness - Extremities Exam Extremities Exam: Normal Inspection - Back Exam Back Exam: NORMAL INSPECTION - Neurological Exam Neurological Exam: Alert, Awake, Oriented x3 - Psychiatric Exam Psychiatric exam: Normal Affect, Normal Mood - Skin Skin Exam: Dry, Intact, Normal Color, Warm Additional comments: R gluteal area with healing I & D incision, no palpable fluctuance, some induration, no notable erythema or drainage Assessment and Plan - Assessment and Plan (Free Text) Assessment: 37Y AA Male w/PMH ESRD on HD (MWF), HTN, cardiomyopathy s/p AICD placement who was admitted for R gluteal abscess s/p I&D POD # 4. ACID fired overnight (never fired before), multiple episodes of V-Tach overnight prior to firing. Now with diarrhea. Had fevers overnight, seems to have fevers on days pt goes for HD. Plan: V-tach - 8, then 16 beats overnight On milrinone drip to be transitioned to amio drip when transferred to ICU EKG- Sinus tach w/PACs, L axis deviation, ST & T wave abnormality- consider lateral ischemia Cardio following -Transfer to ICU, start amio drip, for cardiac cath tomorrow Fever Tmax 102.8 yesterday FU procalcitonin IS Blood cx neg x 4D Repeat Blood cx neg x 48H Urine Cx neg Quant neg FU Mycobacterium Cx U/A neg for LE or nitrates CT pelvis -2 cm fact containing umbilical hernia. Sm R pleural effusion with adjacent atelectasis. CT chest - Sm R pleural effusion with adjacent atelectasis. Severe cardiomegaly Tylenol PRN Zyvox, Merrem HIV Neg T pallidum neg RPR neg ID following: Doxycycline, Daptomyocin, Merrem Diarrhea FU C diff Lacotbacillus Monitor R gluteal abscess s/p I & D POD #4 Cont Merrem Cont Zyvox Pain regimen Wound cx neg ID following Surgery following- re-I & D cancelled due to overnight events HTN Lopressor Cont Lisinopril CHF on milrinone drip, will be transitioned to amio drip in ICU Strict I&O HOB elevated Aspiration precaution Daily wts ESRD on HD BUN 27 Cr 7.4 Nephro following Cont HD schedule (MWF) - HD tomorrow after cardiac cath Pancytopenia Plts 66 from 56 Leukopenia 2.9 from 3.3 Hgb 10.1 from 9.2 FU flow cytometry Heme consulted- ordered ferritin, christos B12, Protein electrophoresis GI/DVT ppx Protonix SCDs while in bed TEDs Ambulate Dispo: Transfer to ICU Amio drip as per cardio Fever w/u pending Heme w/u pending DW attending Bernarda, PGY-1 <Refugio Varner U - Last Filed: 07/03/17 21:21> Objective - Vital Signs/Intake and Output Vital Signs (last 24 hours): Temp Pulse Resp BP Pulse Ox 98.7 F 80 18 158/91 H 94 L 06/09/17 11:54 06/09/17 17:56 06/09/17 11:54 06/09/17 17:56 06/09/17 06:00 - Labs Labs: 06/09/17 07:20 06/09/17 07:20 PT 12.7 Seconds (9.9-11.8) H 06/06/17 06:30 INR 1.18 (0.93-1.08) H 06/06/17 06:30 APTT 34.4 Seconds (23.7-30.8) H 06/06/17 06:30 Attending/Attestation - Attestation I have personally seen and examined this patient.: Yes I have fully participated in the care of the patient.: Yes I have reviewed all pertinent clinical information, including history, physical exam and plan: Yes
[2017-06-06] MEDS: Meropenem 500 MG in Sodium Chloride 0.9% 100 ML IVPB SCH ×2 (12:47→21:55)
--- NOTE | 2017-06-06 13:37 | CP.PCM.CON ---
<RajKellie - Last Filed: 06/06/17 13:20> History of Present Illness - History of Present Illness History of Present Illness: ICU Consult Note 37 M with a PMHx of HTN, ESRD on HD (MWF) x 4 yrs, CAD s/p PCI , cardiomyopathy s/p AICD placement x 2yrs and gluteal abscess who presented to [facility] [place] for a recurrence of a right gluteal abscess. Pt is s/p I&D of right gluteal POD# 4. Pt has been experiencing fevers after dialysis. Overnight, the pt experienced episode of SVT and V-tach subsequently firing his AICD. ICU was consulted to manage pt' arrythmia with an amiodarone drip. Pt is for cardiac cath tomorrow morning to further investigate. Pt was seen and examined at bedside. Pt is anxious about his AICD firing again. Otherwise no acute complaints. He denied fever, chills, sob, chest pains, abdominal pains, or n/v/d /c. PMHx: As Above PSHx: left AV fistula, PCI, AICD SHx:Denied tobacco/etoh/illicits Family Hx: Noncontributory Meds: MAR Reviewed Allergies: Heparin, pork, sellfish PMD: Dr. Varner Review of Systems - Review of Systems Review of Systems: as per HPI otherwise negative Past Patient History - Infectious Disease Hx of Infectious Diseases: None - Past Social History Smoking Status: Unknown If Ever Smoked - CARDIAC Hx Congestive Heart Failure: Yes Hx Hypertension: Yes Other/Comment: AICD - PULMONARY Hx Sleep Apnea: Yes - NEUROLOGICAL Hx Neurological Disorder: No - HEENT Hx HEENT Problems: No - RENAL Hx Dialysis: Yes (MWF) - ENDOCRINE/METABOLIC Hx Endocrine Disorders: No - HEMATOLOGICAL/ONCOLOGICAL Hx Blood Disorders: No - INTEGUMENTARY Hx Dermatological Problems: No - MUSCULOSKELETAL/RHEUMATOLOGICAL Hx Musculoskeletal Disorders: No Hx Falls: No - GASTROINTESTINAL Hx Gastrointestinal Disorders: No - GENITOURINARY/GYNECOLOGICAL Hx Genitourinary Disorders: No - PSYCHIATRIC Hx Psychophysiologic Disorder: No Hx Substance Use: No - SURGICAL HISTORY Other/Comment: L AV shunt - ANESTHESIA Hx Anesthesia: Yes Hx Anesthesia Reactions: No Hx Malignant Hyperthermia: No Meds Allergies/Adverse Reactions: Allergies Allergy/AdvReac Type Severity Reaction Status Date / Time heparin Allergy ANAPHYLAXIS Verified 05/07/17 01:40 PORK Allergy ANAPHYLAXIS Verified 05/07/17 01:40 shellfish derived AdvReac Severe RASH Verified 05/10/17 11:54 shellfish Allergy Mild RASH Uncoded 05/10/17 11:54 - Medications Medications: Current Medications Acetaminophen (Tylenol 325mg Tab) 650 mg PO Q4H PRN PRN Reason: TEMP>=99.5F Last Admin: 06/05/17 20:57 Dose: 650 mg Meropenem 500 mg/ Sodium (Chloride) 100 mls @ 100 mls/hr IVPB Q12 REED PRN Reason: Protocol Stop: 06/11/17 06:57 Last Admin: 06/06/17 12:47 Dose: 100 mls/hr Doxycycline Hyclate 100 mg/ (Sodium Chloride) 100 mls @ 100 mls/hr IVPB Q12 REED PRN Reason: Protocol Last Admin: 06/06/17 12:44 Dose: 100 mls/hr Milrinone Lactate/Dextrose (Primacor 20mg/100ml D5w) 100 mls @ 7.28 mls/hr IV .[id number] PRN; Protocol; 0.2 MCG/KG/MIN PRN Reason: TITRATE PER MD ORDER Last Titration: 06/06/17 03:35 Dose: 0.2 mcg/kg/min, 7.28 mls/hr Amiodarone HCl/Dextrose (Nexterone 360 Mg In D5w 200 Ml (Premix)) 360 mg in 200 mls @ 33.333 mls/hr IV .Q6H REED; 1 MG/MIN PRN Reason: Protocol Last Admin: 06/06/17 10:28 Dose: 33.333 mls/hr Amiodarone HCl/Dextrose (Nexterone 360 Mg In D5w 200 Ml (Premix)) 360 mg in 200 mls @ 16.667 mls/hr IV .Q12H REED; 0.5 MG/MIN PRN Reason: Protocol Stop: 06/07/17 12:00 Lactobacillus Acidophilus (Bacid Acidophilus) 1 cap PO BID REED Lisinopril (Zestril) 20 mg PO DAILY REED Last Admin: 06/06/17 10:36 Dose: 20 mg Metoprolol Tartrate (Lopressor) 50 mg PO BID REED Last Admin: 06/06/17 10:34 Dose: 50 mg Oxycodone/Acetaminophen (Percocet 5/325 Mg Tab) 1 tab PO Q6H PRN PRN Reason: Pain, severe (8-10) Stop: 06/06/17 17:17 Last Admin: 06/05/17 15:13 Dose: 1 tab Pantoprazole Sodium (Protonix Ec Tab) 20 mg PO 0600 REED Last Admin: 06/06/17 05:22 Dose: 20 mg Physical Exam - Constitutional Appears: No Acute Distress - Head Exam Head Exam: ATRAUMATIC, NORMAL INSPECTION, NORMOCEPHALIC - Eye Exam Eye Exam: EOMI, Normal appearance, PERRL Pupil Exam: Fixed - ENT Exam ENT Exam: Mucous Membranes Moist, Normal Exam - Neck Exam Neck exam: Positive for: Normal Inspection - Respiratory Exam Respiratory Exam: Decreased Breath Sounds, Clear to Auscultation Bilateral, NORMAL BREATHING PATTERN - Cardiovascular Exam Cardiovascular Exam: REGULAR RHYTHM, +S1, +S2 - GI/Abdominal Exam GI & Abdominal Exam: Normal Bowel Sounds, Soft. absent: Tenderness - Extremities Exam Extremities exam: Positive for: normal inspection - Neurological Exam Neurological exam: Alert, CN II-XII Intact, Oriented x3, Reflexes Normal - Psychiatric Exam Psychiatric exam: Anxious - Skin Skin Exam: Dry, Intact, Normal Color, Warm Results - Vital Signs Recent Vital Signs: Last Vital Signs Temp 97.3 F L 06/06/17 08:45 Pulse 104 H 06/06/17 13:02 Resp 25 H 06/06/17 13:00 BP 125/69 06/06/17 13:02 Pulse Ox 95 06/06/17 13:02 - Labs Result Diagrams: 06/06/17 06:30 06/06/17 06:30 Labs: Laboratory Results - last 24 hr 06/04/17 06/05/17 06/05/17 12:00 06:30 06:30 WBC RBC Hgb Hct MCV MCH MCHC RDW Plt Count MPV ESR Retic Count PT INR APTT Fibrinogen Sodium Potassium Chloride Carbon Dioxide Anion Gap BUN Creatinine Est GFR ( Amer) Est GFR (Non-Af Amer) Random Glucose Calcium Phosphorus 3.9 Magnesium 1.9 Ferritin 914.0 Total Bilirubin AST ALT Alkaline Phosphatase Lactate Dehydrogenase Total Creatine Kinase Troponin I Total Protein Albumin Globulin Albumin/Globulin Ratio Vitamin B12 332 TB Test (QFT) Nil 0.10 TB Test Mitogen - Nil 1.28 TB Test TB - Nil <0.00 TB Test (QFT) Negative WB Flow Cytometry 06/05/17 06/06/17 06/06/17 09:54 01:35 06:30 WBC 2.9 L* RBC 3.39 L Hgb 10.1 L Hct 31.4 L MCV 92.6 MCH 29.8 MCHC 32.2 RDW 14.4 Plt Count 66 L MPV 10.1 ESR 30 H Retic Count 0.53 PT INR APTT Fibrinogen Sodium 136 Potassium 4.1 Chloride 97 L Carbon Dioxide 28 Anion Gap 15 BUN 23 H Creatinine 6.9 H Est GFR ( Amer) 11 Est GFR (Non-Af Amer) 9 Random Glucose 106 Calcium 9.1 Phosphorus 2.6 Magnesium 1.8 Ferritin Total Bilirubin AST ALT Alkaline Phosphatase Lactate Dehydrogenase Total Creatine Kinase Troponin I 1.74 H* D Total Protein Albumin Globulin Albumin/Globulin Ratio Vitamin B12 TB Test (QFT) Nil TB Test Mitogen - Nil TB Test TB - Nil TB Test (QFT) WB Flow Cytometry Reference test 06/06/17 06/06/17 06/06/17 06:30 06:30 07:00 WBC RBC Hgb Hct MCV MCH MCHC RDW Plt Count MPV ESR Retic Count PT 12.7 H INR 1.18 H APTT 34.4 H Fibrinogen 308.8 Sodium 138 Potassium 4.3 Chloride 97 L Carbon Dioxide 31 Anion Gap 14 BUN 27 H Creatinine 7.4 H Est GFR ( Amer) 10 Est GFR (Non-Af Amer) 8 Random Glucose 114 H Calcium 8.9 Phosphorus Magnesium Ferritin Total Bilirubin 1.5 H AST 35 ALT 22 Alkaline Phosphatase 109 Lactate Dehydrogenase 433 Total Creatine Kinase 103 Troponin I 1.51 H* Total Protein 6.5 Albumin 3.3 Globulin 3.1 Albumin/Globulin Ratio 1.1 Vitamin B12 TB Test (QFT) Nil TB Test Mitogen - Nil TB Test TB - Nil TB Test (QFT) WB Flow Cytometry Assessment & Plan - Assessment and Plan (Free Text) Assessment: 37 M with PMHx of ESRD on HD, HTN, CAD, and cardiomyopathy s/p AICD placement admitted to the ICU for close HD monitoring. Pt has been placed on an amiodarone drip and is for cardiac catheterization and subsequent Hemodialysis tomorrow. Neuro: Stable AAOx3 mentating well, moving all extremities maintain normothermia Pulm: Stable 02 sat >92% on RA Maintain 02 sat>90% CVS: isolated arrythmia, reported V-tach overnight Cardiology, Dr. Horner consulted, following Amiodarone drip as per protocol, milrinone dc'ed, EF 25% Cardiac Catheterization tomorrow AM AICD interrogated Maintain MAP >70 Maintain Euvolemia Troponin peaked, downtrending GI: Stable Renal HD diet GI ppx Renal: ESRD on HD (MWF) Pt for Dialysis after cardiac cath tomorrow ID: s/p right gluteal abscess I&D POD#4, General Surgery Dr. Garcia consulted, following ID consulted, Dr. Kaur Doxycycline, merrem, daptomycin fu PCT Heme: pancytopenia Heme/onc Consulted, Dr. Aldana Endo: Maintain euvolemia 140-180 Seen reviewed and discussed with attending <Sekou Arriola - Last Filed: 06/06/17 15:23> Meds - Medications Medications: Current Medications Acetaminophen (Tylenol 325mg Tab) 650 mg PO Q4H PRN PRN Reason: TEMP>=99.5F Last Admin: 06/05/17 20:57 Dose: 650 mg Meropenem 500 mg/ Sodium (Chloride) 100 mls @ 100 mls/hr IVPB Q12 REED PRN Reason: Protocol Stop: 06/11/17 06:57 Last Admin: 06/06/17 12:47 Dose: 100 mls/hr Doxycycline Hyclate 100 mg/ (Sodium Chloride) 100 mls @ 100 mls/hr IVPB Q12 REED PRN Reason: Protocol Last Admin: 06/06/17 12:44 Dose: 100 mls/hr Milrinone Lactate/Dextrose (Primacor 20mg/100ml D5w) 100 mls @ 7.28 mls/hr IV .[id number] PRN; Protocol; 0.2 MCG/KG/MIN PRN Reason: TITRATE PER MD ORDER Last Titration: 06/06/17 03:35 Dose: 0.2 mcg/kg/min, 7.28 mls/hr Amiodarone HCl/Dextrose (Nexterone 360 Mg In D5w 200 Ml (Premix)) 360 mg in 200 mls @ 33.333 mls/hr IV .Q6H REED; 1 MG/MIN PRN Reason: Protocol Last Admin: 06/06/17 10:28 Dose: 33.333 mls/hr Amiodarone HCl/Dextrose (Nexterone 360 Mg In D5w 200 Ml (Premix)) 360 mg in 200 mls @ 16.667 mls/hr IV .Q12H REED; 0.5 MG/MIN PRN Reason: Protocol Stop: 06/07/17 12:00 Lactobacillus Acidophilus (Bacid Acidophilus) 1 cap PO BID [facility] Lisinopril (Zestril) 20 mg PO DAILY [facility] Last Admin: 06/06/17 10:36 Dose: 20 mg Metoprolol Tartrate (Lopressor) 50 mg PO BID [facility] Last Admin: 06/06/17 10:34 Dose: 50 mg Oxycodone/Acetaminophen (Percocet 5/325 Mg Tab) 1 tab PO Q6H PRN PRN Reason: Pain, severe (8-10) Stop: 06/06/17 17:17 Last Admin: 06/05/17 15:13 Dose: 1 tab Pantoprazole Sodium (Protonix Ec Tab) 20 mg PO 0600 [facility] Last Admin: 06/06/17 05:22 Dose: 20 mg Results - Vital Signs Recent Vital Signs: Last Vital Signs Temp 97.3 F L 06/06/17 08:45 Pulse 104 H 06/06/17 13:02 Resp 25 H 06/06/17 13:00 BP 125/69 06/06/17 13:02 Pulse Ox 95 06/06/17 13:02 - Labs Result Diagrams: 06/06/17 06:30 06/06/17 06:30 Labs: Laboratory Results - last 24 hr 06/04/17 06/05/17 06/05/17 12:00 06:30 06:30 WBC RBC Hgb Hct MCV MCH MCHC RDW Plt Count MPV ESR Retic Count PT INR APTT Fibrinogen Sodium Potassium Chloride Carbon Dioxide Anion Gap BUN Creatinine Est GFR ( Amer) Est GFR (Non-Af Amer) Random Glucose Calcium Phosphorus 3.9 Magnesium 1.9 Ferritin 914.0 Total Bilirubin AST ALT Alkaline Phosphatase Lactate Dehydrogenase Total Creatine Kinase Troponin I Total Protein Albumin Globulin Albumin/Globulin Ratio Vitamin B12 332 TB Test (QFT) Nil 0.10 TB Test Mitogen - Nil 1.28 TB Test TB - Nil <0.00 TB Test (QFT) Negative WB Flow Cytometry 06/05/17 06/06/17 06/06/17 09:54 01:35 06:30 WBC 2.9 L* RBC 3.39 L Hgb 10.1 L Hct 31.4 L MCV 92.6 MCH 29.8 MCHC 32.2 RDW 14.4 Plt Count 66 L MPV 10.1 ESR 30 H Retic Count 0.53 PT INR APTT Fibrinogen Sodium 136 Potassium 4.1 Chloride 97 L Carbon Dioxide 28 Anion Gap 15 BUN 23 H Creatinine 6.9 H Est GFR ( Amer) 11 Est GFR (Non-Af Amer) 9 Random Glucose 106 Calcium 9.1 Phosphorus 2.6 Magnesium 1.8 Ferritin Total Bilirubin AST ALT Alkaline Phosphatase Lactate Dehydrogenase Total Creatine Kinase Troponin I 1.74 H* D Total Protein Albumin Globulin Albumin/Globulin Ratio Vitamin B12 TB Test (QFT) Nil TB Test Mitogen - Nil TB Test TB - Nil TB Test (QFT) WB Flow Cytometry Reference test 06/06/17 06/06/17 06/06/17 06:30 06:30 07:00 WBC RBC Hgb Hct MCV MCH MCHC RDW Plt Count MPV ESR Retic Count PT 12.7 H INR 1.18 H APTT 34.4 H Fibrinogen 308.8 Sodium 138 Potassium 4.3 Chloride 97 L Carbon Dioxide 31 Anion Gap 14 BUN 27 H Creatinine 7.4 H Est GFR ( Amer) 10 Est GFR (Non-Af Amer) 8 Random Glucose 114 H Calcium 8.9 Phosphorus Magnesium Ferritin Total Bilirubin 1.5 H AST 35 ALT 22 Alkaline Phosphatase 109 Lactate Dehydrogenase 433 Total Creatine Kinase 103 Troponin I 1.51 H* Total Protein 6.5 Albumin 3.3 Globulin 3.1 Albumin/Globulin Ratio 1.1 Vitamin B12 TB Test (QFT) Nil TB Test Mitogen - Nil TB Test TB - Nil TB Test (QFT) WB Flow Cytometry Assessment & Plan - Assessment and Plan (Free Text) Assessment: Patient seen and examined. Case discussed with resident, agree with HPI, A/P. 37 M with a PMHx of HTN, ESRD on HD (MWF) x 4 yrs, CAD s/p PCI , cardiomyopathy s/p AICD placement x 2yrs and gluteal abscess who presented to [facility] [place] for a recurrence of a right gluteal abscess s/p InD. Laat night developed fevers, with VT, AICD firing. AICD interrogated today, troponins downtrending. Currently the patients only complaint is fatigue. Denies fever, chills, cough, chest pain, sob, palpitations, RODRIGUEZ dizziness. Transferred to MICU, started on amiodarone drip. ESRD on HD CArdiomyopathy, s/p AICD VTach Gluteal Abscess Pancytopenia CAD HTN Recommend: - Cont with amiodarone drip as per cardiology - cardiac cath tomorrow Am, NPO after MN - follow up cardiology - HD as per renal, tomorrow - abx as per ID, follow up cultures - follow up hematology - BP control - FS control - DVT ppx Critical care time: 35minutes
--- NOTE | 2017-06-06 15:17 | CP.PCM.CON ---
History of Present Illness - History of Present Illness History of Present Illness: 37yo man admitted with chest pain and drainage of ? gluteal abscess. He has a history of ESRD on hemodialysis, AICD with cardiomyopathy, found to have pancytopenia. Patient had the defibrillator firing last night and is lethargic this AM. Awakens with difficulty and answers questions appropriately. Is being transferred to the ICU. Work up of pancytopenia so far showing normal B12, Iron levels, Normal LDH, no splenomegaly. SPEP pending. Past Patient History - Infectious Disease Hx of Infectious Diseases: None - Past Social History Smoking Status: Unknown If Ever Smoked - CARDIAC Hx Congestive Heart Failure: Yes Hx Hypertension: Yes Other/Comment: AICD - PULMONARY Hx Sleep Apnea: Yes - NEUROLOGICAL Hx Neurological Disorder: No - HEENT Hx HEENT Problems: No - RENAL Hx Dialysis: Yes (MWF) - ENDOCRINE/METABOLIC Hx Endocrine Disorders: No - HEMATOLOGICAL/ONCOLOGICAL Hx Blood Disorders: No - INTEGUMENTARY Hx Dermatological Problems: No - MUSCULOSKELETAL/RHEUMATOLOGICAL Hx Musculoskeletal Disorders: No Hx Falls: No - GASTROINTESTINAL Hx Gastrointestinal Disorders: No - GENITOURINARY/GYNECOLOGICAL Hx Genitourinary Disorders: No - PSYCHIATRIC Hx Psychophysiologic Disorder: No Hx Substance Use: No - SURGICAL HISTORY Other/Comment: L AV shunt - ANESTHESIA Hx Anesthesia: Yes Hx Anesthesia Reactions: No Hx Malignant Hyperthermia: No Meds Allergies/Adverse Reactions: Allergies Allergy/AdvReac Type Severity Reaction Status Date / Time heparin Allergy ANAPHYLAXIS Verified 05/07/17 01:40 PORK Allergy ANAPHYLAXIS Verified 05/07/17 01:40 shellfish derived AdvReac Severe RASH Verified 05/10/17 11:54 shellfish Allergy Mild RASH Uncoded 05/10/17 11:54 - Medications Medications: Current Medications Acetaminophen (Tylenol 325mg Tab) 650 mg PO Q4H PRN PRN Reason: TEMP>=99.5F Last Admin: 06/05/17 20:57 Dose: 650 mg Meropenem 500 mg/ Sodium (Chloride) 100 mls @ 100 mls/hr IVPB Q12 REED PRN Reason: Protocol Stop: 06/11/17 06:57 Last Admin: 06/06/17 12:47 Dose: 100 mls/hr Doxycycline Hyclate 100 mg/ (Sodium Chloride) 100 mls @ 100 mls/hr IVPB Q12 REED PRN Reason: Protocol Last Admin: 06/06/17 12:44 Dose: 100 mls/hr Milrinone Lactate/Dextrose (Primacor 20mg/100ml D5w) 100 mls @ 7.28 mls/hr IV .[id number] PRN; Protocol; 0.2 MCG/KG/MIN PRN Reason: TITRATE PER MD ORDER Last Titration: 06/06/17 03:35 Dose: 0.2 mcg/kg/min, 7.28 mls/hr Amiodarone HCl/Dextrose (Nexterone 360 Mg In D5w 200 Ml (Premix)) 360 mg in 200 mls @ 33.333 mls/hr IV .Q6H REED; 1 MG/MIN PRN Reason: Protocol Last Admin: 06/06/17 10:28 Dose: 33.333 mls/hr Amiodarone HCl/Dextrose (Nexterone 360 Mg In D5w 200 Ml (Premix)) 360 mg in 200 mls @ 16.667 mls/hr IV .Q12H REED; 0.5 MG/MIN PRN Reason: Protocol Stop: 06/07/17 12:00 Lactobacillus Acidophilus (Bacid Acidophilus) 1 cap PO BID [facility] Lisinopril (Zestril) 20 mg PO DAILY REED Last Admin: 06/06/17 10:36 Dose: 20 mg Metoprolol Tartrate (Lopressor) 50 mg PO BID REED Last Admin: 06/06/17 10:34 Dose: 50 mg Oxycodone/Acetaminophen (Percocet 5/325 Mg Tab) 1 tab PO Q6H PRN PRN Reason: Pain, severe (8-10) Stop: 06/06/17 17:17 Last Admin: 06/05/17 15:13 Dose: 1 tab Pantoprazole Sodium (Protonix Ec Tab) 20 mg PO 0600 [facility] Last Admin: 06/06/17 05:22 Dose: 20 mg Results - Vital Signs Recent Vital Signs: Last Vital Signs Temp 97.3 F L 06/06/17 08:45 Pulse 104 H 06/06/17 13:02 Resp 25 H 06/06/17 13:00 BP 125/69 06/06/17 13:02 Pulse Ox 95 06/06/17 13:02 - Labs Result Diagrams: 06/06/17 06:30 06/06/17 06:30 Labs: Laboratory Results - last 24 hr 06/04/17 06/05/17 06/05/17 12:00 06:30 06:30 WBC RBC Hgb Hct MCV MCH MCHC RDW Plt Count MPV ESR Retic Count PT INR APTT Fibrinogen Sodium Potassium Chloride Carbon Dioxide Anion Gap BUN Creatinine Est GFR ( Amer) Est GFR (Non-Af Amer) Random Glucose Calcium Phosphorus 3.9 Magnesium 1.9 Ferritin 914.0 Total Bilirubin AST ALT Alkaline Phosphatase Lactate Dehydrogenase Total Creatine Kinase Troponin I Total Protein Albumin Globulin Albumin/Globulin Ratio Vitamin B12 332 TB Test (QFT) Nil 0.10 TB Test Mitogen - Nil 1.28 TB Test TB - Nil <0.00 TB Test (QFT) Negative WB Flow Cytometry 06/05/17 06/06/17 06/06/17 09:54 01:35 06:30 WBC 2.9 L* RBC 3.39 L Hgb 10.1 L Hct 31.4 L MCV 92.6 MCH 29.8 MCHC 32.2 RDW 14.4 Plt Count 66 L MPV 10.1 ESR 30 H Retic Count 0.53 PT INR APTT Fibrinogen Sodium 136 Potassium 4.1 Chloride 97 L Carbon Dioxide 28 Anion Gap 15 BUN 23 H Creatinine 6.9 H Est GFR ( Amer) 11 Est GFR (Non-Af Amer) 9 Random Glucose 106 Calcium 9.1 Phosphorus 2.6 Magnesium 1.8 Ferritin Total Bilirubin AST ALT Alkaline Phosphatase Lactate Dehydrogenase Total Creatine Kinase Troponin I 1.74 H* D Total Protein Albumin Globulin Albumin/Globulin Ratio Vitamin B12 TB Test (QFT) Nil TB Test Mitogen - Nil TB Test TB - Nil TB Test (QFT) WB Flow Cytometry Reference test 06/06/17 06/06/17 06/06/17 06:30 06:30 07:00 WBC RBC Hgb Hct MCV MCH MCHC RDW Plt Count MPV ESR Retic Count PT 12.7 H INR 1.18 H APTT 34.4 H Fibrinogen 308.8 Sodium 138 Potassium 4.3 Chloride 97 L Carbon Dioxide 31 Anion Gap 14 BUN 27 H Creatinine 7.4 H Est GFR ( Amer) 10 Est GFR (Non-Af Amer) 8 Random Glucose 114 H Calcium 8.9 Phosphorus Magnesium Ferritin Total Bilirubin 1.5 H AST 35 ALT 22 Alkaline Phosphatase 109 Lactate Dehydrogenase 433 Total Creatine Kinase 103 Troponin I 1.51 H* Total Protein 6.5 Albumin 3.3 Globulin 3.1 Albumin/Globulin Ratio 1.1 Vitamin B12 TB Test (QFT) Nil TB Test Mitogen - Nil TB Test TB - Nil TB Test (QFT) WB Flow Cytometry Assessment & Plan - Assessment and Plan (Free Text) Assessment: 37 yo man with pancytopenia, work up so far not consistent with nutritional deficiencies or hypersplenism, low retic count, flow cytometry and SPEP pending. R/O marrow dysplasia/sepsis. PRN transfusion/ growth factors for now. Patient may need a bone marrow biopsy, but will wait till acute status improves/ stabilizes.
--- NOTE | 2017-06-06 16:19 | CP.PCM.PN ---
Subjective - Date & Time of Evaluation Date of Evaluation: 06/06/17 Time of Evaluation: 11:30 - Subjective Subjective: Pt S&E at bedsides. Pt very drowsy 2/2 insomnia due to anxiety about his ACID firing yesterday. Pt still having fever. Pt denies pain at gluteal abscess site and thinks it has improved. Pt denies CP/SOB, abdominal pain, N/V/D. Objective - Vital Signs/Intake and Output Vital Signs (last 24 hours): Temp Pulse Resp BP Pulse Ox 97.3 F L 104 H 25 H 125/69 95 06/06/17 08:45 06/06/17 13:02 06/06/17 13:00 06/06/17 13:02 06/06/17 13:02 Intake and Output: 06/06/17 06/06/17 06:59 18:59 Intake Total 334 420 Output Total 0 Balance 334 420 - Medications Medications: Current Medications Acetaminophen (Tylenol 325mg Tab) 650 mg PO Q4H PRN PRN Reason: TEMP>=99.5F Last Admin: 06/05/17 20:57 Dose: 650 mg Meropenem 500 mg/ Sodium (Chloride) 100 mls @ 100 mls/hr IVPB Q12 REED PRN Reason: Protocol Stop: 06/11/17 06:57 Last Admin: 06/06/17 12:47 Dose: 100 mls/hr Doxycycline Hyclate 100 mg/ (Sodium Chloride) 100 mls @ 100 mls/hr IVPB Q12 REED PRN Reason: Protocol Last Admin: 06/06/17 12:44 Dose: 100 mls/hr Milrinone Lactate/Dextrose (Primacor 20mg/100ml D5w) 100 mls @ 7.28 mls/hr IV .[id number] PRN; Protocol; 0.2 MCG/KG/MIN PRN Reason: TITRATE PER MD ORDER Last Titration: 06/06/17 03:35 Dose: 0.2 mcg/kg/min, 7.28 mls/hr Amiodarone HCl/Dextrose (Nexterone 360 Mg In D5w 200 Ml (Premix)) 360 mg in 200 mls @ 33.333 mls/hr IV .Q6H REED; 1 MG/MIN PRN Reason: Protocol Last Admin: 06/06/17 10:28 Dose: 33.333 mls/hr Amiodarone HCl/Dextrose (Nexterone 360 Mg In D5w 200 Ml (Premix)) 360 mg in 200 mls @ 16.667 mls/hr IV .Q12H REED; 0.5 MG/MIN PRN Reason: Protocol Stop: 06/07/17 12:00 Lactobacillus Acidophilus (Bacid Acidophilus) 1 cap PO BID [facility] Lisinopril (Zestril) 20 mg PO DAILY [facility] Last Admin: 06/06/17 10:36 Dose: 20 mg Metoprolol Tartrate (Lopressor) 50 mg PO BID [facility] Last Admin: 06/06/17 10:34 Dose: 50 mg Oxycodone/Acetaminophen (Percocet 5/325 Mg Tab) 1 tab PO Q6H PRN PRN Reason: Pain, severe (8-10) Stop: 06/06/17 17:17 Last Admin: 06/05/17 15:13 Dose: 1 tab Pantoprazole Sodium (Protonix Ec Tab) 20 mg PO 0600 [facility] Last Admin: 06/06/17 05:22 Dose: 20 mg - Labs Labs: 06/06/17 06:30 06/06/17 06:30 PT 12.7 Seconds (9.9-11.8) H 06/06/17 06:30 INR 1.18 (0.93-1.08) H 06/06/17 06:30 APTT 34.4 Seconds (23.7-30.8) H 06/06/17 06:30 - Constitutional Appears: Non-toxic, Other (Fatigued.) - Head Exam Head Exam: NORMAL INSPECTION - Eye Exam Eye Exam: EOMI - ENT Exam ENT Exam: Mucous Membranes Moist - Respiratory Exam Respiratory Exam: NORMAL BREATHING PATTERN. absent: Accessory Muscle Use, Respiratory Distress - Cardiovascular Exam Cardiovascular Exam: Tachycardia - GI/Abdominal Exam GI & Abdominal Exam: Soft. absent: Distended, Tenderness - Extremities Exam Extremities Exam: Normal Inspection - Neurological Exam Neurological Exam: Alert, Oriented x3 - Psychiatric Exam Psychiatric exam: Normal Affect, Normal Mood - Skin Skin Exam: Dry, Intact, Normal Color, Warm - Additional Findings Additional findings: I & D incision on Right gluteal area without notable erythema, drainage, or fluctuance. Minimal induration. Assessment and Plan - Assessment and Plan (Free Text) Assessment: 37 y/o male with multiple comorbidities consulted for R gluteal abscess s/p I&D POD # 4 Plan: -NTD from a surgical standpoint at this time -Cont to follow -Cont abx per ID -Cont pain control -Consider repeat I&D next week if not improving D/w Dr. Jose Puri DO PGY1
[2017-06-06] MEDS: Lactobacillus Acidophilus 500 MU Cap PO SCH ×2 (18:09)
--- NOTE | 2017-06-06 19:58 | PN ---
SUBJECTIVE: The patient is currently seen sleeping in bed in the morning hours. He was apparently shocked by his AICD last night for ventricular fibrillation. The patient is currently being scheduled for a cardiac catheterization tomorrow morning in light of his elevated troponin levels and his cardiac arrhythmia. The patient also needs a repeat I and D done as per Dr. Garcia pending cardiac clearance. The patient had an uneventful dialysis yesterday but was febrile towards the end of dialysis. He spiked fevers to 102.8 at night. He remains on antibiotic therapy. His wound cultures and blood cultures for his right-sided gluteal abscess have been negative. MEDICATIONS: Medication list reviewed. The patient is on doxycycline, metoprolol, Meropenem, amiodarone, oxycodone, milrinone, Protonix, p.r.n. Tylenol, and Lisinopril. OBJECTIVE: INTAKE/OUTPUT: 534/0 plus hemodialysis. VITAL SIGNS: Blood pressure 110/59, temperature 97.3. This morning pulse 101, respiratory rate 20. HEENT: Normocephalic, atraumatic. Conjunctivae pale. Sclerae non-icteric. NECK: Supple. No neck vein distention. CHEST: Clear to auscultation and percussion. No rales or rhonchi. No wheezing. CARDIOVASCULAR: Regular rate and rhythm without murmurs, rubs, or gallops noted. Positive AICD. ABDOMEN: Soft. Bowel sounds normal. No rebound, no guarding, no masses. Back and buttock area positive right gluteal abscess. Dressing in place. No drainage. EXTREMITIES: Left upper extremity AV fistula, positive thrill, positive bruit. No lower extremity edema. LABORATORY DATA AND IMAGING: CBC today, white blood cell count 2.9, hemoglobin 10.1, platelet count of 66,000. Chemistries today show normal electrolytes. BUN 27 with a creatinine of 7.4. Glucose is 114, bilirubin 1.5. Liver enzymes are normal. Troponins have been 1.74 and 1.51. Microbiology, all cultures remain negative. Electrocardiogram done last night, report is pending. Apparently, no acute ST-T wave changes were seen as per the notes. ASSESSMENT: 1. Status post incision and drainage of his right-sided gluteal abscess. As per Dr. Garcia, the patient will need another drainage procedure. He remains on IV antibiotics with so far negative cultures and the likelihood the fever spikes are coming from the right gluteal abscess. 2. History of end-stage renal disease. The patient will continue Saturday, Saturday, Saturday dialysis. We will coordinate tomorrow his dialysis with possible cardiac catheterization to take place tomorrow morning. 3. History of hypertension, hypertensive cardiomyopathy, ejection fraction 25%, status post placement of AICD. As noted above, his AICD fired last night likely from ventricular arrhythmia. 4. History of anemia secondary to chronic kidney disease. The patient will continue iron as per protocol. 5. History of secondary hyperparathyroidism. The patient's last phosphorus level was 2.6 off binder therapy. The patient will continue renal diet. PLAN: 1. No followup incision and drainage until the patient is cleared by Cardiology, which likely will not take place until after tomorrow's cardiac catheterization. 2. Hemodialysis tomorrow to be coordinated with his cardiac catheterization plan for tomorrow morning. 3. Again, from renal standpoint, placement of PICC line for antibiotic therapy would be okay in his right upper extremity as he has an excellent working left upper extremity AV fistula. 4. Discussed with Dr. Garcia and nursing staff in detail. Junior Edwards MD MTDD
--- NOTE | 2017-06-06 19:59 | CARD ---
APPROVED REPORT EKG Measurement Heart [id number] DC [id number] <Conclusion> Sinus tachycardia Right superior axis deviation Right ventricular hypertrophy Cannot rule out Inferior infarct, age undetermined Abnormal ECG
--- NOTE | 2017-06-06 20:04 | CARD ---
APPROVED REPORT EKG Measurement Heart [id number] <Conclusion> Sinus tachycardia Left axis deviation Pulmonary disease pattern Incomplete right bundle branch block ST & T wave abnormality, consider lateral ischemia Abnormal ECG
--- NOTE | 2017-06-06 23:20 | PN ---
DATE: 06/06/2017 LOCATION: The patient was seen in room 271, bed 2. SUBJECTIVE: The patient is lying in the bed. Overnight events were noted and discussed with the director of medical services. The patient was seen and examined with the director of medical services. The patient is seen lying in the bed in room 271, bed 2. The patient spiked high-grade fever overnight. The patient was noted to have nonsustained ventricular tachycardia. The patient's AICD fired off once. The patient is seen lying in the bed. PHYSICAL EXAMINATION: VITAL SIGNS: T-max is greater than 102 degrees Fahrenheit. Telemetry shows sinus rhythm, sinus tachycardia with episodes overnight noted of nonsustained ventricular tachycardia. Blood pressure is 110/74, 118/70, respirations 18 to 20, O2 saturations are in the mid 90s. HEENT: Head examination normocephalic, atraumatic. HEENT examination shows pinkish pale conjunctivae. Anicteric sclerae. No oropharyngeal lesion. No neck rigidity. CHEST: Examination shows positive left upper chest SVT. Questionable decreased breath sound at the bases. Positive rhonchi bilaterally. CARDIOVASCULAR: S1, S2. Positive systolic murmur, right second intercostal space, left sternal border. ABDOMEN: Soft. Positive bowel sounds. GENITALIA: Male. RECTAL: Deferred. EXTREMITIES: Shows positive SCDs, positive swelling, and pitting edema of the lower extremity. MUSCULOSKELETAL: Shows an elevated body mass index. NEUROLOGIC: The patient is alert, awake, oriented x3. Gait examination could not be tested. LABORATORY DATA: The patient's lab reviewed and as per the resident's note from today. The patient's EKG reviewed. Telemetry monitoring reviewed. The patient's clinical condition was updated with the magistrate and infectious disease. IMPRESSION: 1. Status post ventricular tachycardia. 2. Status post automated implantable cardioverter defibrillator shock. 3. High-grade fever. 4. Questionable sepsis versus systemic inflammatory response syndrome. 5. End-stage renal disease, hemodialysis dependent. 6. Questionable and possible right gluteal abscess versus cellulitis in skin structure. 7. Pancytopenia. 8. End-stage renal disease, hemodialysis dependent. 9. Dilated cardiomyopathy. 10. Status post automated implantable cardioverter-defibrillator implant. 11. Recurrent persistent high-grade fever. 1. Right gluteal abscess versus cellulitis versus skin infection with high-grade fever of 103 degrees Fahrenheit. 2. Tachycardia. 3. History of hypertension. 4. History of noncompliance. 5. Episodic transient hypertension. 6. Pancytopenia with leukopenia, anemia, thrombocytopenia. 7. End-stage renal disease, hemodialysis dependent, three times a week. 8. Questionable non-ST elevation myocardial infarction with elevated troponin. 9. Proteinuria, glycosuria, microscopic hematuria, pyuria, bacteriuria. 10. Pancytopenia. 11. Right lower lobe consolidation and pleural effusion. 12. Cardiomegaly. 13. A 2-cm fat containing umbilical hernia. 14. Enlarged bilateral inguinal lymphadenopathy. 15. Sinus tachycardia with left axis deviation and questionable lateral ischemic changes on the EKG. 16. Left anterior hemiblock. 1. Right gluteal abscess cellulitis. 2. Nonsustained ventricular tachycardia. 3. Chest pain. 4. Sinus tachycardia. 5. Status post uncontrolled hypertension. 6. Leukopenia, anemia, thrombocytopenia, pancytopenia. 7. End-stage renal disease, hemodialysis dependent. 8. Chest pain with elevated troponin, etiology unclear in end stage renal dialysis patient. 9. Mild hyperbilirubinemia. 10. Proteinuria, microscopic hematuria, pyuria, bacteriuria. 11. Sinus tachycardia with left axis deviation and inferolateral ischemic changes. 12. Possible right lower lobe pneumonia. 13. Cardiomegaly. 14. Nonsustained ventricular tachycardia, asymptomatic. 15. Right pleural effusion. 16. Questionable bladder wall thickening with prostatomegaly. 17. Small umbilical hernia. 18. Right buttock abscess. 19. Possible cystitis. 20. Right lower lobe atelectasis versus pneumonia. 21. Left axis deviation. 22. Increasing left pleural effusion and possibly loculated left pleural effusion. 23. Right lower lobe atelectasis and pneumonia with possible pulmonary vascular congestion. 24. Increasing right pleural effusion and pathology. 25. Increasing pleural effusion. 26. Right lower lobe consolidation, cardiomegaly and right pleural effusion. 27. Umbilical hernia. 28. Bilateral inguinal lymphadenopathy. 29. End-stage renal disease, hemodialysis dependent three times a week. 30. Sepsis secondary to right gluteal abscess versus cellulitis. 31. Probable acute non-ST elevation myocardial infarction with elevated troponin. 32. Tachycardia. 33. High-grade fever of 102.8. 34. Pancytopenia. 35. Dilated cardiomyopathy. 36. Status post incision and drainage of the right-sided gluteal abscess. 37. Hypertensive cardiomyopathy. 38. Status post automatic implantable cardioverter-defibrillator implant. 39. Secondary hyperparathyroidism. 40. End-stage dilated cardiomyopathy with ejection fraction of 25%. 41. Acute on chronic recurrent systolic congestive heart failure with dilated cardiomyopathy. 42. IV milrinone dependent. 43. Hypertension. 1. Right gluteal abscess versus cellulitis versus skin infection with high-grade fever of 103 degrees Fahrenheit. 2. Tachycardia. 3. History of hypertension. 4. History of noncompliance. 5. Episodic transient hypertension. 6. Pancytopenia with leukopenia, anemia, thrombocytopenia. 7. End-stage renal disease, hemodialysis dependent, three times a week. 8. Questionable non-ST elevation myocardial infarction with elevated troponin. 9. Proteinuria, glycosuria, microscopic hematuria, pyuria, bacteriuria. 10. Pancytopenia. 11. Right lower lobe consolidation and pleural effusion. 12. Cardiomegaly. 13. A 2-cm fat containing umbilical hernia. 14. Enlarged bilateral inguinal lymphadenopathy. 15. Sinus tachycardia with left axis deviation and questionable lateral ischemic changes on the EKG. 16. Left anterior hemiblock. 1. Right gluteal abscess cellulitis. 2. Nonsustained ventricular tachycardia. 3. Chest pain. 4. Sinus tachycardia. 5. Status post uncontrolled hypertension. 6. Leukopenia, anemia, thrombocytopenia, pancytopenia. 7. End-stage renal disease, hemodialysis dependent. 8. Chest pain with elevated troponin, etiology unclear in end stage renal dialysis patient. 9. Mild hyperbilirubinemia. 10. Proteinuria, microscopic hematuria, pyuria, bacteriuria. 11. Sinus tachycardia with left axis deviation and inferolateral ischemic changes. 12. Possible right lower lobe pneumonia. 13. Cardiomegaly. 14. Nonsustained ventricular tachycardia, asymptomatic. 15. Right pleural effusion. 16. Questionable bladder wall thickening with prostatomegaly. 17. Small umbilical hernia. 18. Right buttock abscess. 19. Possible cystitis. 20. Right lower lobe atelectasis versus pneumonia. 21. Left axis deviation. 22. Increasing left pleural effusion and possibly loculated left pleural effusion. 23. Right lower lobe atelectasis and pneumonia with possible pulmonary vascular congestion. 24. Increasing right pleural effusion and pathology. 25. Increasing pleural effusion. 26. Right lower lobe consolidation, cardiomegaly and right pleural effusion. 27. Umbilical hernia. 28. Bilateral inguinal lymphadenopathy. 29. End-stage renal disease, hemodialysis dependent three times a week. 30. Sepsis secondary to right gluteal abscess versus cellulitis. 31. Probable acute non-ST elevation myocardial infarction with elevated troponin. 32. Tachycardia. 33. High-grade fever of 102.8. 34. Pancytopenia. 35. Dilated cardiomyopathy. 36. Status post incision and drainage of the right-sided gluteal abscess. 37. Hypertensive cardiomyopathy. 38. Status post automatic implantable cardioverter-defibrillator implant. 39. Secondary hyperparathyroidism. 40. End-stage dilated cardiomyopathy with ejection fraction of 25%. 41. Acute on chronic recurrent systolic congestive heart failure with dilated cardiomyopathy. 42. IV milrinone dependent. 43. Hypertension. 1. Right gluteal abscess cellulitis. 2. Nonsustained ventricular tachycardia. 3. Chest pain. 4. Sinus tachycardia. 5. Status post uncontrolled hypertension. 6. Leukopenia, anemia, thrombocytopenia, pancytopenia. 7. End-stage renal disease, hemodialysis dependent. 8. Chest pain with elevated troponin, etiology unclear in end stage renal dialysis patient. 9. Mild hyperbilirubinemia. 10. Proteinuria, microscopic hematuria, pyuria, bacteriuria. 11. Sinus tachycardia with left axis deviation and inferolateral ischemic changes. 12. Possible right lower lobe pneumonia. 13. Cardiomegaly. 14. Nonsustained ventricular tachycardia, asymptomatic. 15. Right pleural effusion. 16. Questionable bladder wall thickening with prostatomegaly. 17. Small umbilical hernia. 18. Right buttock abscess. 19. Possible cystitis. 20. Right lower lobe atelectasis versus pneumonia. 21. Left axis deviation. 22. Increasing left pleural effusion and possibly loculated left pleural effusion. 23. Right lower lobe atelectasis and pneumonia with possible pulmonary vascular congestion. 24. Increasing right pleural effusion and pathology. 25. Increasing pleural effusion. 26. Right lower lobe consolidation, cardiomegaly and right pleural effusion. 27. Umbilical hernia. 28. Bilateral inguinal lymphadenopathy. 29. End-stage renal disease, hemodialysis dependent three times a week. 30. Sepsis secondary to right gluteal abscess versus cellulitis. 31. Probable acute non-ST elevation myocardial infarction with elevated troponin. 32. Tachycardia. 33. High-grade fever of 102.8. 34. Pancytopenia. 35. Dilated cardiomyopathy. 36. Status post incision and drainage of the right-sided gluteal abscess. 37. Hypertensive cardiomyopathy. 38. Status post automatic implantable cardioverter-defibrillator implant. 39. Secondary hyperparathyroidism. 40. End-stage dilated cardiomyopathy with ejection fraction of 25%. 41. Acute on chronic recurrent systolic congestive heart failure with dilated cardiomyopathy. 42. IV milrinone dependent. 43. Hypertension. PLAN: At this time, the patient was seen and evaluated by magistrate. The patient is in the process of getting transferred to ICU. The patient was given a bolus of amiodarone. The patient will be started on amiodarone drip. The patient's has been on milrinone drip. The patient has been re-consulted with infectious disease. The patient is scheduled for cardiac catheterization tomorrow. As per Cardiology, the patient's IV antibiotic is as per the Infectious Disease recommendation. The patient's rest of the medications are as per the MAR. The patient was seen and examined with the director of medical services. The patient's management discussed with Cardiology and Infectious Disease. At present, the patient's prognosis is guarded. Condition is critical. The patient is in the process of getting transferred to ICU. The patient is updated about diagnosis, new changes, and updated about his condition. The patient was explained about the details of cardiac arrhythmia and possibly ventricular tachycardia, its consequences, and possible underlying was also explained to the patient in layman language. All questions and concerned answered. Dictated and electronically signed, not read. Refugio Varner MD ERLIN
[2017-06-07 00:45] LABS: TOTAL PROTEIN, SERUM 6.3 g/dL (6.1-8.1)
[2017-06-07] MEDS: Amiodarone 360 mg/D5W 200 ml 360 MG/200 ML BAG IV SCH (01:59)
[2017-06-07 06:17] LABS: HEMATOCRIT 31.9 % (42.0-52.0); MEAN CELL VOLUME 91.4 fl (80.0-105.0); MEAN CORPUSCULAR HEMOGLOBIN 29.5 pg (25.0-35.0); MEAN CORPUSCULAR HGB CONC 32.3 g/dl (31.0-37.0); MEAN PLATELET VOLUME 9.7 fl (7.0-11.0); RED CELL DISTRIBUTION WIDTH 14.8 % (11.5-14.5)
[2017-06-07 06:28] LABS: ALB/GLOB RATIO 1.1 (1.1-1.8); BILIRUBIN,TOTAL 1.2 mg/dL (0.2-1.3); POTASSIUM 4.1 mmol/L (3.6-5.0); TOTAL PROTEIN 6.8 g/dL (5.8-8.3)
[2017-06-07] MEDS: Pantoprazole 20 mg EC Tab PO SCH (06:37)
[2017-06-07 07:01] LABS: TROPONIN I 1.24 ng/mL
--- NOTE | 2017-06-07 07:16 | CP.PCM.PN ---
<Rivka Menchaca - Last Filed: 06/07/17 10:34> Subjective - Date & Time of Evaluation Date of Evaluation: 06/07/17 Time of Evaluation: 06:40 - Subjective Subjective: Internal medicine progress note for Dr. Rolando Mencahca, PGY-1 Pt S & E at bedside. Pt reports anxiety overnight in anticipation of AICD firing again. Denies N/V/F /C, SOB, CP, ab pain, palpitations. Per nursing- no fevers overnight, no acute events. Pt for cardiac cath today. Objective - Vital Signs/Intake and Output Vital Signs (last 24 hours): Temp Pulse Resp BP Pulse Ox 100.0 F H 102 H 44 H 148/90 88 L 06/07/17 01:10 06/07/17 06:39 06/07/17 05:22 06/07/17 06:39 06/07/17 05:20 - Medications Medications: Current Medications Acetaminophen (Tylenol 325mg Tab) 650 mg PO Q4H PRN PRN Reason: TEMP>=99.5F Last Admin: 06/07/17 01:10 Dose: 650 mg Meropenem 500 mg/ Sodium (Chloride) 100 mls @ 100 mls/hr IVPB Q12 REED PRN Reason: Protocol Stop: 06/11/17 06:57 Last Admin: 06/06/17 21:55 Dose: 100 mls/hr Doxycycline Hyclate 100 mg/ (Sodium Chloride) 100 mls @ 100 mls/hr IVPB Q12 REED PRN Reason: Protocol Last Admin: 06/06/17 21:56 Dose: 100 mls/hr Amiodarone HCl/Dextrose (Nexterone 360 Mg In D5w 200 Ml (Premix)) 360 mg in 200 mls @ 33.333 mls/hr IV .Q6H REED; 1 MG/MIN PRN Reason: Protocol Last Admin: 06/06/17 16:30 Dose: 33.333 mls/hr Amiodarone HCl/Dextrose (Nexterone 360 Mg In D5w 200 Ml (Premix)) 360 mg in 200 mls @ 16.667 mls/hr IV .Q12H REED; 0.5 MG/MIN PRN Reason: Protocol Stop: 06/07/17 12:00 Last Admin: 06/07/17 01:59 Dose: 16.667 mls/hr Lactobacillus Acidophilus (Bacid Acidophilus) 1 cap PO BID [facility] Last Admin: 06/06/17 18:09 Dose: 1 cap Lisinopril (Zestril) 20 mg PO DAILY [facility] Last Admin: 06/06/17 10:36 Dose: 20 mg Metoprolol Tartrate (Lopressor) 50 mg PO BID [facility] Last Admin: 06/07/17 06:39 Dose: 50 mg Pantoprazole Sodium (Protonix Ec Tab) 20 mg PO 0600 [facility] Last Admin: 06/07/17 06:37 Dose: 20 mg - Labs Labs: 06/07/17 05:30 06/07/17 05:30 PT 12.7 Seconds (9.9-11.8) H 06/06/17 06:30 INR 1.18 (0.93-1.08) H 06/06/17 06:30 APTT 34.4 Seconds (23.7-30.8) H 06/06/17 06:30 - Constitutional Appears: Non-toxic, No Acute Distress - Head Exam Head Exam: ATRAUMATIC, NORMAL INSPECTION, NORMOCEPHALIC - Eye Exam Eye Exam: EOMI, Normal appearance - ENT Exam ENT Exam: Mucous Membranes Moist, Normal Exam - Neck Exam Neck Exam: Full ROM, Normal Inspection - Respiratory Exam Respiratory Exam: Clear to Ausculation Bilateral, NORMAL BREATHING PATTERN. absent: Chest Wall Tenderness (AICD in place over left chest wall), Rales, Rhonchi, Wheezes, Respiratory Distress - Cardiovascular Exam Cardiovascular Exam: Tachycardia, +S1, +S2 - GI/Abdominal Exam GI & Abdominal Exam: Soft, Normal Bowel Sounds. absent: Distended, Tenderness - Extremities Exam Extremities Exam: Normal Inspection. absent: Pedal Edema Additional comments: LUE AVF with thrill, bruit, no erythema or increased warmth noted - Neurological Exam Neurological Exam: Alert, Awake, CN II-XII Intact, Oriented x3 - Psychiatric Exam Psychiatric exam: Normal Affect, Normal Mood - Skin Skin Exam: Dry, Intact, Normal Color, Warm Assessment and Plan - Assessment and Plan (Free Text) Assessment: 37Y AA Male w/PMH ESRD on HD (MWF), HTN, cardiomyopathy s/p AICD placement who was admitted for R gluteal abscess s/p I&D POD # 5. No acute events overnight as per nursing, for cardiac cath today Plan: V-tach - No events overnight Trop 1.24 from 1.51- down trending Cardio following -per nursing, cardiac cath neg, amio drip d/c'd Fever- none overnight procalcitonin 5.17 IS Blood cx neg x 5D Repeat Blood cx neg x 48H 2nd repeat blood cx neg x 24H Urine Cx neg Sputum cx neg Quant neg U/A neg CT pelvis -2 cm fact containing umbilical hernia. Sm R pleural effusion with adjacent atelectasis. CT chest - Sm R pleural effusion with adjacent atelectasis. Severe cardiomegaly Tylenol PRN Doxy, Merrem HIV Neg T pallidum neg RPR neg ID following Diarrhea FU C diff Lacotbacillus Monitor R gluteal abscess s/p I & D POD #5 Cont Merrem Cont Doxy Pain regimen Wound cx neg ID following Surgery following - no surgical intervention at this time, if no resolution, will consider intervention next week HTN Lopressor Lisinopril CHF BNP 75,900 Strict I&O HOB elevated Aspiration precaution Daily wts ESRD on HD BUN 41 Cr 9.9 For HD today Nephro following Cont HD schedule (MWF) - Pancytopenia Plts 77 from 66 Leukopenia 3.0 from 2.9 Hgb 10.3 from 10.1 Flow cytometry neg Retic 0.53 ESR 30 Ferritin 914 Heme following GI/DVT ppx Protonix SCDs while in bed TEDs Ambulate Dispo: Will be transferred from ICU to tele Pt refusing to lay flat post cardiac cath Benadryl 25mg IVP x 1 per attending Heme W/U pending Will DW attending Bernarda, PGY-1 <Refugio Varner U - Last Filed: 07/03/17 21:22> Objective - Vital Signs/Intake and Output Vital Signs (last 24 hours): Temp Pulse Resp BP Pulse Ox 98.7 F 80 18 158/91 H 94 L 06/09/17 11:54 06/09/17 17:56 06/09/17 11:54 06/09/17 17:56 06/09/17 06:00 - Labs Labs: 06/09/17 07:20 06/09/17 07:20 PT 12.7 Seconds (9.9-11.8) H 06/06/17 06:30 INR 1.18 (0.93-1.08) H 06/06/17 06:30 APTT 34.4 Seconds (23.7-30.8) H 06/06/17 06:30 Attending/Attestation - Attestation I have personally seen and examined this patient.: Yes I have fully participated in the care of the patient.: Yes I have reviewed all pertinent clinical information, including history, physical exam and plan: Yes
[2017-06-07] MEDS: Famotidine 20mg/50ml 20 MG/50 ML BAG IVPB ONE ×2 (07:23→09:03)
[2017-06-07] MEDS: DiphenhydrAMINE 50 mg/ml Inj ONE ×2 (07:23→09:03)
[2017-06-07] MEDS: Midazolam 2 MG/2 ML VIAL ONE ×4 (07:53→09:06)
[2017-06-07] MEDS: Lidocaine 2% Inj (20ml) ONE ×4 (08:02→10:53)
[2017-06-07] MEDS: Naloxone 0.4 mg/ml Inj (Adult) ONE ×2 (08:20→09:06)
[2017-06-07] MEDS: Iodixanol 320 MG/ML 200 ML BOTTLE IV ONE ×2 (09:03→10:54)
[2017-06-07] MEDS: Phenylephrine 10 mg/ml Inj ONE ×2 (09:04→10:53)
[2017-06-07] MEDS: Iohexol 350mgl/ml 50 ML ONE ×2 (09:05→10:53)
[2017-06-07] MEDS: Iodixanol 320 MG/ML 100 ML BOTTLE IV ONE ×2 (09:06→10:48)
[2017-06-07] MEDS ORDERED: DiphenhydrAMINE 50 mg/ml Inj IVP ONE (09:40)
[2017-06-07] MEDS: Lactobacillus Acidophilus 500 MU Cap PO SCH ×2 (09:42→17:24)
[2017-06-07] MEDS: Meropenem 500 MG in Sodium Chloride 0.9% 100 ML IVPB SCH ×2 (09:42→22:00)
[2017-06-07 11:50] LABS: BETA 1 GLOBULIN 0.3 g/dL (0.4-0.6); BETA 2 GLOBULIN 0.4 g/dL (0.2-0.5); GAMMA GLOBULIN 1.5 g/dL (0.8-1.7)
--- NOTE | 2017-06-07 12:32 | PN ---
DATE: 06/07/2017 The patient tolerated the catheterization well. In consultation with [facility] interrogation of his ICD, his defibrillator fired on an SVT and not during ventricular tachycardia. We will make adjustments in terms of his rate to trigger the defibrillator. We will DC the amiodarone. The patient can be transferred back to telemetry after dialysis. Sandro Horner MD
[2017-06-07 12:45] LABS: PHOSPHOROUS 4.6 mg/dL (2.5-4.5)
--- NOTE | 2017-06-07 13:17 | CP.PCM.PN ---
Subjective - Date & Time of Evaluation Date of Evaluation: 06/07/17 Time of Evaluation: 09:30 - Subjective Subjective: Patient seen and examined, Reports fatigue. Denies fever, chills, cough, chest pain, SOB. Patient s/p cardiac cath today, which was reported to be negative. ICD interrogated, and found to fire on SVT, Amiodarone discontinued as per cardiology. Objective - Vital Signs/Intake and Output Vital Signs (last 24 hours): Temp Pulse Resp BP Pulse Ox 98.4 F 88 20 145/81 98 06/07/17 11:31 06/07/17 12:23 06/07/17 12:23 06/07/17 12:23 06/07/17 11:31 - Medications Medications: Current Medications Acetaminophen (Tylenol 325mg Tab) 650 mg PO Q4H PRN PRN Reason: TEMP>=99.5F Last Admin: 06/07/17 01:10 Dose: 650 mg Acetaminophen (Tylenol 325 Mg Supp) 325 mg RC Q4H PRN PRN Reason: Pain, moderate (4-7) Meropenem 500 mg/ Sodium (Chloride) 100 mls @ 100 mls/hr IVPB Q12 REED PRN Reason: Protocol Stop: 06/11/17 06:57 Last Admin: 06/07/17 09:42 Dose: 100 mls/hr Doxycycline Hyclate 100 mg/ (Sodium Chloride) 100 mls @ 100 mls/hr IVPB Q12 REED PRN Reason: Protocol Last Admin: 06/07/17 09:43 Dose: 100 mls/hr Lactobacillus Acidophilus (Bacid Acidophilus) 1 cap PO BID [facility] Last Admin: 06/07/17 09:42 Dose: 1 cap Lisinopril (Zestril) 10 mg PO DAILY REED Last Admin: 06/07/17 09:37 Dose: 10 mg Metoprolol Tartrate (Lopressor) 50 mg PO BID REED Last Admin: 06/07/17 09:37 Dose: 50 mg Pantoprazole Sodium (Protonix Ec Tab) 20 mg PO 0600 [facility] Last Admin: 06/07/17 06:37 Dose: 20 mg - Labs Labs: 06/07/17 05:30 06/07/17 05:30 PT 12.7 Seconds (9.9-11.8) H 06/06/17 06:30 INR 1.18 (0.93-1.08) H 06/06/17 06:30 APTT 34.4 Seconds (23.7-30.8) H 06/06/17 06:30 - Constitutional Appears: Well, Non-toxic, No Acute Distress - Head Exam Head Exam: ATRAUMATIC - Eye Exam Eye Exam: Normal appearance - Neck Exam Neck Exam: Full ROM - Respiratory Exam Respiratory Exam: Clear to Ausculation Bilateral, NORMAL BREATHING PATTERN - Cardiovascular Exam Cardiovascular Exam: RRR, +S1, +S2 - GI/Abdominal Exam GI & Abdominal Exam: Soft, Normal Bowel Sounds - Extremities Exam Extremities Exam: Full ROM - Neurological Exam Neurological Exam: Awake, Oriented x3 Assessment and Plan - Assessment and Plan (Free Text) Assessment: 37 M with a PMHx of HTN, ESRD on HD (MWF) x 4 yrs, CAD s/p PCI , cardiomyopathy s/p AICD placement x 2yrs and gluteal abscess [place] [facility] [place] of a right gluteal [place] s/p InD. Two days ago developed fevers, with SVT, AICD firing. Patient s/p cardiac cath today, which was negative. AICD interrogated found to fire on SVT rhythm, Amiodarone discontinued. ESRD on HD Cardiomyopathy, s/p AICD SVT, resolved Gluteal Abscess s/p InD Pancytopenia CAD s/p cardiac cath HTN Recommend: - discontinue Amiodarone - follow up cardiology - HD as per renal, today - abx as per ID, follow up cultures - follow up hematology - BP control - FS control - DVT ppx - transfer to telemetry after HD
--- NOTE | 2017-06-07 13:19 | PN ---
DATE: 06/07/2017 SUBJECTIVE: The patient is in bed in no acute distress. He was seen earlier 28 with low-grade fever. PHYSICAL EXAMINATION VITAL SIGNS: Temperature is 100, heart rate of 104, respiratory rate of 30, blood pressure is 130/70. HEENT: Unremarkable. NECK: Supple. LUNGS: Decreased breath sounds. HEART: Normal S1 and S2. ABDOMEN: Soft, nontender. LABORATORY DATA: Reveals a white count of 3.0, hemoglobin of 10, and platelets of 77. Chemistry reveals BUN of 41, creatinine of 9.9. Troponin of 1.24. BNP is 75,000. Procalcitonin is 5.17. Urinalysis is noted and 1 to 3 WBCs and immunology is pending. Serology, HIV is negative. RPR is negative. APA is negative. Flow cytometry is pending and microbiology reveals the blood cultures, there are no growth. Urine culture is not available and the mycobacterium cultures are no acid fast seen on gram stain, the cultures are pending and abscess cultures no growth. Urine cultures, no growth. Repeat blood cultures are no growth. note is reviewed. Dr. Skelton's progress note is reviewed. Dr. Varner's note is reviewed. Dr. Campbell's note is reviewed. ASSESSMENT AND PLAN: A 37-year-old male with sepsis to right gluteal purulent skin and skin structure infections status post incision and drainage of an abscess post procedure day #5 with negative cultures and probable acute non-ST elevation myocardial infarction, pancytopenia, coronary artery disease, chronic congestive heart failure, and history of percutaneous coronary intervention, history of pacemaker, end-stage renal disease on hemodialysis, and hypertension. Currently, on daptomycin and meropenem. Daptomycin was given one dose and the patient was also on doxycycline and meropenem. The meropenem will require renewal. Awaiting for bone marrow workup. We will change the doxycycline to p.o. if able to tolerate p.o. Marcus Kaur MD
--- NOTE | 2017-06-07 15:29 | CARDCATH ---
PROCEDURE DATE: 06/07/2017 HISTORY: The patient is a 37-year-old male who presents with acute systolic CHF. He has a history of cardiomyopathy in the past. He also suffers from end-stage renal disease as well as hypertension. The patient was treated with IV inotropic therapy with some improvement on a tapering dose when his ICD fired. Investigation of the ICD was consistent with ventricular tachycardia. Because of this, the patient was brought for cardiac catheterization. PROCEDURE: 1. Left heart catheterization with coronary artery and left ventriculogram with supra-aortic valvular injection. 2. The right femoral artery was cannulated with a 6-Trinidadian sheath. There were no complications. 3. The findings on catheterization revealed a left ventricle that was markedly dilated and diffusely hypokinetic with an ejection fraction between 15% and 20%. 4. His supra-aortic valvular injection revealed a dilated aorta without aortic insufficiency. 5. His coronary arteries revealed a right dominant circulation. The RCA was free of significant disease. 6. The left main artery was unremarkable. 7. The LAD and diagonal vessels revealed mild intimal irregularities without critical lesions. 8. The circumflex artery and obtuse marginal branches were free of significant disease. 9. The patient tolerated the procedure well. Angio-Seal was used to close the femoral artery site. 10. In summary, the procedure revealed an end-stage dilated cardiomyopathy with an EF of 15-20%. 11. No aortic insufficiency was noted. 12. No significant coronary artery disease is noted. Given these findings, we will have his ICD interrogated to differentiate between an SVT causing a defibrillator shock versus ventricular in origin. We will continue medical therapy. We will discuss with the patient about evaluation for heart transplantation. Sandro Horner MD
--- NOTE | 2017-06-07 19:23 | PN ---
SUBJECTIVE: The patient is currently seen in ICU bed 2, he is completing his dialysis, he is status post cardiac catheterization earlier today which showed no significant coronary artery disease. The patient was transferred to the ICU because his AICD had shocked him and he was placed on an amiodarone drip. It turns out that the arrhythmia that he had was an SVT. The patient remains afebrile. There are no plans right now for a repeat I and D of his right gluteal abscess. MEDICATIONS: Medication list reviewed. The patient is currently on Acidophilus, doxycycline, metoprolol, Meropenem, Protonix, Tylenol p.r.n. and Zestril. OBJECTIVE: INTAKE/OUTPUT: Intake 1404, output 0. VITAL SIGNS: Blood pressure 145/81, pulse 88 and regular. Temperature 98.4 with a T-max of 100 earlier today. Respiratory rate 20, pulse ox 98%. HEENT: Shows him to be normocephalic, atraumatic. Conjunctivae are pale. Sclerae nonicteric. NECK: Supple. No neck vein distention. CHEST: Clear to auscultation and percussion. No rales, no rhonchi, no wheezing. CARDIOVASCULAR: Shows a regular rate and rhythm without audible murmurs, rubs, or gallops. Patient has a AICD. ABDOMEN: Soft. Bowel sounds normal. No rebound, no guarding, no masses. Back and buttock area shows a right gluteal abscess with a dressing over the abscess with no drainage. EXTREMITIES: Left upper extremity AV fistula, cannulated for dialysis. No lower extremity edema. LABORATORY DATA AND IMAGING: CBC, white blood cell count today 3.0, hemoglobin 10.3 with a platelet count of 77,000. Chemistries today show normal electrolytes, BUN 41 with a creatinine of 9.9. Glucose is 93, calcium 9.0, phosphorous controlled at 4.6, magnesium 2.0. Mild elevation of troponin. Liver enzymes are normal. Microbiology, all cultures remain negative including the wound culture. Repeat blood cultures are also negative. Stool for C. diff is negative. ASSESSMENT: 1. End-stage renal disease. The patient will continue Saturday, Saturday, Saturday dialysis. He appears to be a bit volume overloaded and we are ultrafiltrating 5 liters of fluid. 2. History of a right gluteal abscess. Status post I and D. No further drainage. The patient remains on IV antibiotic therapy. He still continues to run a borderline low-grade temperature. There were plans to do a more definitive incision and drainage procedure; however, this is not going to be done at this point in time. 3. History of hypertension, history of hypertensive cardiomyopathy, ejection fraction 25%, history of an AICD. He is status a negative cardiac catheterization earlier today. Apparently, his AICD fired off because of his supraventricular arrhythmia. 4. History of anemia secondary to chronic kidney disease. The patient will continue iron and Aranesp per protocol. 5. History of secondary hyperparathyroidism. The patient's phosphorus level is slightly higher at 4.6. The patient may resume binder therapy. I will continue on a renal diet. PLAN: 1. Agree with transfer out of the ICU post-dialysis today. 2. Caution the patient to avoid consuming excessive amounts of volume in order not to have to ultrafiltrate 5 kilo with each dialysis. 3. Continue empiric antibiotic therapy for his gluteal abscess. 4. Continue to monitor temperature curve closely. 5. Upon discharge from the hospital, the patient will followup with his outpatient cna, Dr. Whitten. Junior Edwards MD
--- NOTE | 2017-06-07 21:56 | PN ---
DATE: 06/07/2017 LOCATION: The patient is now seen in ICU Bed 6. SUBJECTIVE: The patient is lying in the bed post cardiac catheterization. The patient is sedated. The patient is lethargic but arousable, answers questions. PHYSICAL EXAMINATION: VITAL SIGNS: T-max, as mentioned the patient spiked fever of 103, down to 100. Telemetry shows sinus rhythm, heart rate of 92, blood pressure 145/84, O2 sat is 98% to 99% on telemetry monitoring, the patient is on oxygen supplementation. HEENT: Head examination normocephalic, atraumatic. HEENT: Examination shows pinkish pale conjunctivae. Anicteric sclerae. No oropharyngeal lesion. No neck rigidity. CHEST: Examination shows positive AICD, upper chest. Questionable decreased breath sound at the bases. CARDIOVASCULAR: S1, S2, regular rhythm. Positive systolic murmur, right second intercostal space, left sternal border, left second intercostal space. ABDOMEN: Soft. Positive bowel sounds. GENITALIA: Male. RECTAL: Examination deferred. EXTREMITIES: Show positive swelling of the lower extremities. MUSCULOSKELETAL: Examination shows an elevated body mass index. Cranial nerves II-XII limited. Gait examination, could not be tested. VASCULAR: Palpable pulses. DIAGNOSTICS: Reviewed. The patient's hemoglobin has come up to 10. WBC count is normal. Platelets are low. Electrolytes show elevated BUN and creatinine in an end-stage renal dialysis patient. Troponin is elevated. The patient's cardiac catheterization, preliminary report was negative for any obstructive coronary disease. Official report pending. The patient was transferred to ICU yesterday for amiodarone drip. The patient did not have any ventricular tachycardia and any ventricular arrhythmias in the last 24 hours. IMPRESSION AND PLAN: 1. Status post ventricular tachycardia. 2. Status post AICD shocks. 3. Status post cardiac catheterization. 4. Dilated cardiomyopathy. 5. Right gluteal abscess versus cellulitis versus skin infection. 6. Pancytopenia, etiology undetermined. 7. Questionable non-ST elevation myocardial infarction with elevated troponin versus elevated troponin in end-stage renal disease hemodialysis-dependent patient. 8. History of hypertension. 9. History of epistaxis. 10. Status post incision and drainage of the right gluteal abscess versus cellulitis. 11. Recurrent persistent high-grade fever. 1. Status post ventricular tachycardia. 2. Status post automated implantable cardioverter defibrillator shock. 3. High-grade fever. 4. Questionable sepsis versus systemic inflammatory response syndrome. 5. End-stage renal disease, hemodialysis dependent. 6. Questionable and possible right gluteal abscess versus cellulitis in skin structure. 7. Pancytopenia. 8. End-stage renal disease, hemodialysis dependent. 9. Dilated cardiomyopathy. 10. Status post automated implantable cardioverter-defibrillator implant. 11. Recurrent persistent high-grade fever. 1. Right gluteal abscess versus cellulitis versus skin infection with high-grade fever of 103 degrees Fahrenheit. 2. Tachycardia. 3. History of hypertension. 4. History of noncompliance. 5. Episodic transient hypertension. 6. Pancytopenia with leukopenia, anemia, thrombocytopenia. 7. End-stage renal disease, hemodialysis dependent, three times a week. 8. Questionable non-ST elevation myocardial infarction with elevated troponin. 9. Proteinuria, glycosuria, microscopic hematuria, pyuria, bacteriuria. 10. Pancytopenia. 11. Right lower lobe consolidation and pleural effusion. 12. Cardiomegaly. 13. A 2-cm fat containing umbilical hernia. 14. Enlarged bilateral inguinal lymphadenopathy. 15. Sinus tachycardia with left axis deviation and questionable lateral ischemic changes on the EKG. 16. Left anterior hemiblock. 1. Right gluteal abscess cellulitis. 2. Nonsustained ventricular tachycardia. 3. Chest pain. 4. Sinus tachycardia. 5. Status post uncontrolled hypertension. 6. Leukopenia, anemia, thrombocytopenia, pancytopenia. 7. End-stage renal disease, hemodialysis dependent. 8. Chest pain with elevated troponin, etiology unclear in end stage renal dialysis patient. 9. Mild hyperbilirubinemia. 10. Proteinuria, microscopic hematuria, pyuria, bacteriuria. 11. Sinus tachycardia with left axis deviation and inferolateral ischemic changes. 12. Possible right lower lobe pneumonia. 13. Cardiomegaly. 14. Nonsustained ventricular tachycardia, asymptomatic. 15. Right pleural effusion. 16. Questionable bladder wall thickening with prostatomegaly. 17. Small umbilical hernia. 18. Right buttock abscess. 19. Possible cystitis. 20. Right lower lobe atelectasis versus pneumonia. 21. Left axis deviation. 22. Increasing left pleural effusion and possibly loculated left pleural effusion. 23. Right lower lobe atelectasis and pneumonia with possible pulmonary vascular congestion. 24. Increasing right pleural effusion and pathology. 25. Increasing pleural effusion. 26. Right lower lobe consolidation, cardiomegaly and right pleural effusion. 27. Umbilical hernia. 28. Bilateral inguinal lymphadenopathy. 29. End-stage renal disease, hemodialysis dependent three times a week. 30. Sepsis secondary to right gluteal abscess versus cellulitis. 31. Probable acute non-ST elevation myocardial infarction with elevated troponin. 32. Tachycardia. 33. High-grade fever of 102.8. 34. Pancytopenia. 35. Dilated cardiomyopathy. 36. Status post incision and drainage of the right-sided gluteal abscess. 37. Hypertensive cardiomyopathy. 38. Status post automatic implantable cardioverter-defibrillator implant. 39. Secondary hyperparathyroidism. 40. End-stage dilated cardiomyopathy with ejection fraction of 25%. 41. Acute on chronic recurrent systolic congestive heart failure with dilated cardiomyopathy. 42. IV milrinone dependent. 43. Hypertension. 1. Status post ventricular tachycardia. 2. Status post automated implantable cardioverter defibrillator shock. 3. High-grade fever. 4. Questionable sepsis versus systemic inflammatory response syndrome. 5. End-stage renal disease, hemodialysis dependent. 6. Questionable and possible right gluteal abscess versus cellulitis in skin structure. 7. Pancytopenia. 8. End-stage renal disease, hemodialysis dependent. 9. Dilated cardiomyopathy. 10. Status post automated implantable cardioverter-defibrillator implant. 11. Recurrent persistent high-grade fever. 1. Right gluteal abscess versus cellulitis versus skin infection with high-grade fever of 103 degrees Fahrenheit. 2. Tachycardia. 3. History of hypertension. 4. History of noncompliance. 5. Episodic transient hypertension. 6. Pancytopenia with leukopenia, anemia, thrombocytopenia. 7. End-stage renal disease, hemodialysis dependent, three times a week. 8. Questionable non-ST elevation myocardial infarction with elevated troponin. 9. Proteinuria, glycosuria, microscopic hematuria, pyuria, bacteriuria. 10. Pancytopenia. 11. Right lower lobe consolidation and pleural effusion. 12. Cardiomegaly. 13. A 2-cm fat containing umbilical hernia. 14. Enlarged bilateral inguinal lymphadenopathy. 15. Sinus tachycardia with left axis deviation and questionable lateral ischemic changes on the EKG. 16. Left anterior hemiblock. 1. Right gluteal abscess cellulitis. 2. Nonsustained ventricular tachycardia. 3. Chest pain. 4. Sinus tachycardia. 5. Status post uncontrolled hypertension. 6. Leukopenia, anemia, thrombocytopenia, pancytopenia. 7. End-stage renal disease, hemodialysis dependent. 8. Chest pain with elevated troponin, etiology unclear in end stage renal dialysis patient. 9. Mild hyperbilirubinemia. 10. Proteinuria, microscopic hematuria, pyuria, bacteriuria. 11. Sinus tachycardia with left axis deviation and inferolateral ischemic changes. 12. Possible right lower lobe pneumonia. 13. Cardiomegaly. 14. Nonsustained ventricular tachycardia, asymptomatic. 15. Right pleural effusion. 16. Questionable bladder wall thickening with prostatomegaly. 17. Small umbilical hernia. 18. Right buttock abscess. 19. Possible cystitis. 20. Right lower lobe atelectasis versus pneumonia. 21. Left axis deviation. 22. Increasing left pleural effusion and possibly loculated left pleural effusion. 23. Right lower lobe atelectasis and pneumonia with possible pulmonary vascular congestion. 24. Increasing right pleural effusion and pathology. 25. Increasing pleural effusion. 26. Right lower lobe consolidation, cardiomegaly and right pleural effusion. 27. Umbilical hernia. 28. Bilateral inguinal lymphadenopathy. 29. End-stage renal disease, hemodialysis dependent three times a week. 30. Sepsis secondary to right gluteal abscess versus cellulitis. 31. Probable acute non-ST elevation myocardial infarction with elevated troponin. 32. Tachycardia. 33. High-grade fever of 102.8. 34. Pancytopenia. 35. Dilated cardiomyopathy. 36. Status post incision and drainage of the right-sided gluteal abscess. 37. Hypertensive cardiomyopathy. 38. Status post automatic implantable cardioverter-defibrillator implant. 39. Secondary hyperparathyroidism. 40. End-stage dilated cardiomyopathy with ejection fraction of 25%. 41. Acute on chronic recurrent systolic congestive heart failure with dilated cardiomyopathy. 42. IV milrinone dependent. 43. Hypertension. 1. Right gluteal abscess versus cellulitis versus skin infection with high-grade fever of 103 degrees Fahrenheit. 2. Tachycardia. 3. History of hypertension. 4. History of noncompliance. 5. Episodic transient hypertension. 6. Pancytopenia with leukopenia, anemia, thrombocytopenia. 7. End-stage renal disease, hemodialysis dependent, three times a week. 8. Questionable non-ST elevation myocardial infarction with elevated troponin. 9. Proteinuria, glycosuria, microscopic hematuria, pyuria, bacteriuria. 10. Pancytopenia. 11. Right lower lobe consolidation and pleural effusion. 12. Cardiomegaly. 13. A 2-cm fat containing umbilical hernia. 14. Enlarged bilateral inguinal lymphadenopathy. 15. Sinus tachycardia with left axis deviation and questionable lateral ischemic changes on the EKG. 16. Left anterior hemiblock. 1. Right gluteal abscess cellulitis. 2. Nonsustained ventricular tachycardia. 3. Chest pain. 4. Sinus tachycardia. 5. Status post uncontrolled hypertension. 6. Leukopenia, anemia, thrombocytopenia, pancytopenia. 7. End-stage renal disease, hemodialysis dependent. 8. Chest pain with elevated troponin, etiology unclear in end stage renal dialysis patient. 9. Mild hyperbilirubinemia. 10. Proteinuria, microscopic hematuria, pyuria, bacteriuria. 11. Sinus tachycardia with left axis deviation and inferolateral ischemic changes. 12. Possible right lower lobe pneumonia. 13. Cardiomegaly. 14. Nonsustained ventricular tachycardia, asymptomatic. 15. Right pleural effusion. 16. Questionable bladder wall thickening with prostatomegaly. 17. Small umbilical hernia. 18. Right buttock abscess. 19. Possible cystitis. 20. Right lower lobe atelectasis versus pneumonia. 21. Left axis deviation. 22. Increasing left pleural effusion and possibly loculated left pleural effusion. 23. Right lower lobe atelectasis and pneumonia with possible pulmonary vascular congestion. 24. Increasing right pleural effusion and pathology. 25. Increasing pleural effusion. 26. Right lower lobe consolidation, cardiomegaly and right pleural effusion. 27. Umbilical hernia. 28. Bilateral inguinal lymphadenopathy. 29. End-stage renal disease, hemodialysis dependent three times a week. 30. Sepsis secondary to right gluteal abscess versus cellulitis. 31. Probable acute non-ST elevation myocardial infarction with elevated troponin. 32. Tachycardia. 33. High-grade fever of 102.8. 34. Pancytopenia. 35. Dilated cardiomyopathy. 36. Status post incision and drainage of the right-sided gluteal abscess. 37. Hypertensive cardiomyopathy. 38. Status post automatic implantable cardioverter-defibrillator implant. 39. Secondary hyperparathyroidism. 40. End-stage dilated cardiomyopathy with ejection fraction of 25%. 41. Acute on chronic recurrent systolic congestive heart failure with dilated cardiomyopathy. 42. IV milrinone dependent. 43. Hypertension. 1. Right gluteal abscess cellulitis. 2. Nonsustained ventricular tachycardia. 3. Chest pain. 4. Sinus tachycardia. 5. Status post uncontrolled hypertension. 6. Leukopenia, anemia, thrombocytopenia, pancytopenia. 7. End-stage renal disease, hemodialysis dependent. 8. Chest pain with elevated troponin, etiology unclear in end stage renal dialysis patient. 9. Mild hyperbilirubinemia. 10. Proteinuria, microscopic hematuria, pyuria, bacteriuria. 11. Sinus tachycardia with left axis deviation and inferolateral ischemic changes. 12. Possible right lower lobe pneumonia. 13. Cardiomegaly. 14. Nonsustained ventricular tachycardia, asymptomatic. 15. Right pleural effusion. 16. Questionable bladder wall thickening with prostatomegaly. 17. Small umbilical hernia. 18. Right buttock abscess. 19. Possible cystitis. 20. Right lower lobe atelectasis versus pneumonia. 21. Left axis deviation. 22. Increasing left pleural effusion and possibly loculated left pleural effusion. 23. Right lower lobe atelectasis and pneumonia with possible pulmonary vascular congestion. 24. Increasing right pleural effusion and pathology. 25. Increasing pleural effusion. 26. Right lower lobe consolidation, cardiomegaly and right pleural effusion. 27. Umbilical hernia. 28. Bilateral inguinal lymphadenopathy. 29. End-stage renal disease, hemodialysis dependent three times a week. 30. Sepsis secondary to right gluteal abscess versus cellulitis. 31. Probable acute non-ST elevation myocardial infarction with elevated troponin. 32. Tachycardia. 33. High-grade fever of 102.8. 34. Pancytopenia. 35. Dilated cardiomyopathy. 36. Status post incision and drainage of the right-sided gluteal abscess. 37. Hypertensive cardiomyopathy. 38. Status post automatic implantable cardioverter-defibrillator implant. 39. Secondary hyperparathyroidism. 40. End-stage dilated cardiomyopathy with ejection fraction of 25%. 41. Acute on chronic recurrent systolic congestive heart failure with dilated cardiomyopathy. 42. IV milrinone dependent. 43. Hypertension. PLAN: At this time, the patient's amiodarone has been stopped by marble helper. The patient has been ordered transfer out of the ICU to telemetry. The patient's medications IV antibiotics will be continued as per the MAR. The patient will be followed up by cardiology, infectious disease, and surgery consultation. Time spent in the entire management more than 35 minutes. Dictated and electronically signed note. Refugio Varner MD [facility] # [id number] ERLIN
[2017-06-08] MEDS: Pantoprazole 20 mg EC Tab PO SCH (06:15)
[2017-06-08 06:24] LABS: BILIRUBIN,TOTAL 1.3 mg/dL (0.2-1.3); CALCIUM 9.1 mg/dL (8.4-10.5); POTASSIUM 4.5 mmol/L (3.6-5.0); TOTAL PROTEIN 6.5 g/dL (5.8-8.3)
[2017-06-08 07:02] LABS: HEMATOCRIT 30.4 % (42.0-52.0); MEAN CELL VOLUME 89.4 fl (80.0-105.0); MEAN CORPUSCULAR HEMOGLOBIN 29.7 pg (25.0-35.0); MEAN CORPUSCULAR HGB CONC 33.2 g/dl (31.0-37.0); MEAN PLATELET VOLUME 10.7 fl (7.0-11.0); RED CELL DISTRIBUTION WIDTH 14.2 % (11.5-14.5); WHITE BLOOD COUNT 3.3 10^3/ul (4.5-11.0)
[2017-06-08] MEDS: Meropenem 500 MG in Sodium Chloride 0.9% 100 ML IVPB SCH ×2 (10:51→23:12)
[2017-06-08] MEDS: Lactobacillus Acidophilus 500 MU Cap PO SCH ×2 (10:52→17:52)
--- NOTE | 2017-06-08 12:34 | CP.PCM.PN ---
Subjective - Date & Time of Evaluation Date of Evaluation: 06/08/17 Time of Evaluation: 12:32 - Subjective Subjective: seen and examined in icu no complaints Objective - Vital Signs/Intake and Output Vital Signs (last 24 hours): Temp Pulse Resp BP Pulse Ox 99 F 94 H 32 H 149/75 96 06/08/17 06:00 06/08/17 10:52 06/08/17 06:14 06/08/17 10:52 06/07/17 17:00 Intake and Output: 06/08/17 06/08/17 06:59 18:59 Intake Total 440 Output Total 50 Balance 390 - Medications Medications: Current Medications Acetaminophen (Tylenol 325mg Tab) 650 mg PO Q4H PRN PRN Reason: TEMP>=99.5F Last Admin: 06/07/17 01:10 Dose: 650 mg Acetaminophen (Tylenol 325 Mg Supp) 325 mg RC Q4H PRN PRN Reason: Pain, moderate (4-7) Calcium Acetate (Phoslo) 667 mg PO WM [facility] Last Admin: 06/08/17 08:08 Dose: 667 mg Doxycycline Hyclate (Doryx) 100 mg PO Q12 REED PRN Reason: Protocol Stop: 06/17/17 22:01 Meropenem 500 mg/ Sodium (Chloride) 100 mls @ 100 mls/hr IVPB Q12 REED PRN Reason: Protocol Stop: 06/11/17 06:57 Last Admin: 06/08/17 10:51 Dose: 100 mls/hr Lactobacillus Acidophilus (Bacid Acidophilus) 1 cap PO BID [facility] Last Admin: 06/08/17 10:52 Dose: 1 cap Lisinopril (Zestril) 10 mg PO DAILY [facility] Last Admin: 06/08/17 10:52 Dose: 10 mg Metoprolol Tartrate (Lopressor) 50 mg PO BID [facility] Last Admin: 06/08/17 10:52 Dose: 50 mg Pantoprazole Sodium (Protonix Ec Tab) 20 mg PO 0600 [facility] Last Admin: 06/08/17 06:15 Dose: 20 mg - Labs Labs: 06/08/17 05:45 06/08/17 05:45 PT 12.7 Seconds (9.9-11.8) H 06/06/17 06:30 INR 1.18 (0.93-1.08) H 06/06/17 06:30 APTT 34.4 Seconds (23.7-30.8) H 06/06/17 06:30 - Constitutional Appears: Non-toxic - Head Exam Head Exam: ATRAUMATIC - Eye Exam Eye Exam: Normal appearance - ENT Exam ENT Exam: Normal Exam - Neck Exam Neck Exam: Normal Inspection - Respiratory Exam Respiratory Exam: NORMAL BREATHING PATTERN - Cardiovascular Exam Cardiovascular Exam: +S1, +S2 - GI/Abdominal Exam GI & Abdominal Exam: Normal Bowel Sounds - Extremities Exam Additional comments: trace edema - Neurological Exam Neurological Exam: Oriented x3 - Psychiatric Exam Psychiatric exam: Normal Affect - Skin Skin Exam: Normal Color Assessment and Plan - Assessment and Plan (Free Text) Assessment: esrd /chf / htn / gluteal abscess/ anemia/ secondary hyperpara plan: hd mon bp reasoanbly controlled abx per primary team dose for esrd hgb at goal phos at goal
--- NOTE | 2017-06-08 14:28 | PN ---
DATE: 06/08/2017 SUBJECTIVE: The patient is in bed, in no acute distress, was seen earlier this morning in room 128, bed 6. He is comfortable. PHYSICAL EXAMINATION VITAL SIGNS: Temperature is 99, T-max is 99, blood pressure is 149/75, respiratory rate of 30, heart rate of 91. HEENT: Unremarkable. NECK: Supple. LUNGS: Decreased breath sounds. HEART: Normal S1 and S2. ABDOMEN: Soft and nontender. LABORATORY DATA: Reveals a white count of 3.3, hemoglobin of 10, platelets of 92. Chemistries reveals a BUN of 38 and creatinine of 7.5. Troponin is 1.24. Urinalysis is noted and serology is noted. Microbiology reveals the blood cultures are negative, urine cultures are negative, C. diff antigen and toxin is negative. Review of orders reveals the patient to be on doxycycline and meropenem. Dr. Edwards's note is reviewed from yesterday and Dr. Varner's note from yesterday also reviewed. ASSESSMENT AND PLAN: A 37-year-old male with sepsis with right gluteal purulent skin and skin structure, infection is now post incision and drainage and abscess post procedure day #6 with negative cultures with probable acute non-ST elevation myocardial infarction; pancytopenia, etiology of which is not clear; coronary artery disease; congestive heart failure; history of percutaneous coronary intervention; history of pacemaker; end-stage renal disease, on hemodialysis and hypertension. Currently, on doxycycline and meropenem. We will change the doxycycline to p.o. and continue the meropenem. A workup for pancytopenia is pending. We will follow closely with you. Marcus Kaur MD
--- NOTE | 2017-06-08 17:20 | PN ---
DATE: 06/08/2017 SUBJECTIVE: The patient is seen in ICU bed 6. The patient was seen lying in the bed, taking on the phone, watching TV. Overnight nurse's notes were reviewed. The patient slept well without any adverse events documented. Nurse's notes were reviewed. The patient was noted to be snoring by the nurses. PHYSICAL EXAMINATION: VITAL SIGNS: T-max in the last 24 hours is 99.6. Telemetry shows sinus rhythm, heart rate in 90s. Blood pressure ranging from 149/75, 165/113, 151/92, 145/81, 130/67; respiration is high 20s, low 30s. O2 sat is low to mid 90s. INTAKE/OUTPUT: Intake 680 , output 5400. HEENT: Head examination normocephalic, atraumatic. HEENT examination shows pinkish pale conjunctivae. Anicteric sclerae. No oropharyngeal lesion. No neck rigidity. CHEST: Positive upper chest ICD, positive decreased breath sound at the bases. CARDIOVASCULAR: S1, S2, regular rhythm. Positive systolic murmur, right second intercostal space, left sternal border, left second intercostal space. ABDOMEN: Soft. Positive bowel sounds. GENITALIA: Male. RECTAL: Deferred. EXTREMITY: Shows positive swelling of the lower extremity. MUSCULOSKELETAL: Shows a body mass index of 33. Cranial nerves II-XII not tested. Gait examination is not tested as the patient is lying in the bed. VASCULAR: Palpable pulses. PSYCHIATRIC: Not applicable. DIAGNOSTIC: Shows WBC of 3.3, hemoglobin/hematocrit 10.1, 30.4, platelet 92,000. ESR is 30. Sodium 137, potassium 4.5, chloride 97, CO2 of 29, anion gap 16, BUN 38, creatinine 7.5, GFR 10. Random glucose 127, calcium 9.1, phosphorus 4.6, magnesium 2.0. LFTs are normal. Peak troponin is 1.74, down to 1.24 today. BNP is 75,900. Procalcitonin level is 5.17. The patient's immunofixation, serum protein electrophoresis were acute reaction, RPR nonreactive, FDA HIV, TB QuantiFERON negative. Flow cytometry was reviewed. Microbiology cultures and MRSA and blood cultures negative. The patient had a C. diff cultures done which was negative, antigen and toxin. The patient's peripheral blood smear for flow cytometry, no evidence of abnormal leukemia, myeloid maturation or lymphoproliferative disorder. The patient had a defibrillator checked, we are unable to access that record. IMPRESSION AND PLAN 1. Status post cardiac catheterization. 2. Acute on chronic recurrent systolic congestive heart failure. 3. Status post IV milrinone drip treatment. 4. Ventricular tachycardia. 5. Status post IV amiodarone treatment. 6. Marked dilated diffusely hypokinetic left ventricle with ejection fraction between 15-20%. 7. Dilated aorta without aortic insufficiency. 8. High-grade fever (resolving). 9. Sinus tachycardia. 10. Hypertension. 11. Tachypnea. 12. Questionable sleep apnea with hypoxemia and snoring. 13. Pancytopenia with leukopenia, anemia, thrombocytopenia. 14. Elevated erythrocyte sedimentation rate. 15. Same day admit and discharge. 16. Questionable non-ST elevation myocardial infarction with elevated troponin. 17. End-stage renal disease, hemodialysis dependent. 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 19. Proteinuria, glycosuria, hematuria, bacteriuria. 20. Sepsis with right gluteal abscess versus cellulitis versus skin structure infection. 21. Status post incision and drainage. 22. End-stage renal disease, hemodialysis dependent. 23. Right gluteal abscess. 24. Questionable supraventricular tachycardia. 1. Status post ventricular tachycardia. 2. Status post AICD shocks. 3. Status post cardiac catheterization. 4. Dilated cardiomyopathy. 5. Right gluteal abscess versus cellulitis versus skin infection. 6. Pancytopenia, etiology undetermined. 7. Questionable non-ST elevation myocardial infarction with elevated troponin versus elevated troponin in end-stage renal disease hemodialysis-dependent patient. 8. History of hypertension. 9. History of epistaxis. 10. Status post incision and drainage of the right gluteal abscess versus cellulitis. 11. Recurrent persistent high-grade fever. 1. Status post ventricular tachycardia. 2. Status post automated implantable cardioverter defibrillator shock. 3. High-grade fever. 4. Questionable sepsis versus systemic inflammatory response syndrome. 5. End-stage renal disease, hemodialysis dependent. 6. Questionable and possible right gluteal abscess versus cellulitis in skin structure. 7. Pancytopenia. 8. End-stage renal disease, hemodialysis dependent. 9. Dilated cardiomyopathy. 10. Status post automated implantable cardioverter-defibrillator implant. 11. Recurrent persistent high-grade fever. 1. Right gluteal abscess versus cellulitis versus skin infection with high-grade fever of 103 degrees Fahrenheit. 2. Tachycardia. 3. History of hypertension. 4. History of noncompliance. 5. Episodic transient hypertension. 6. Pancytopenia with leukopenia, anemia, thrombocytopenia. 7. End-stage renal disease, hemodialysis dependent, three times a week. 8. Questionable non-ST elevation myocardial infarction with elevated troponin. 9. Proteinuria, glycosuria, microscopic hematuria, pyuria, bacteriuria. 10. Pancytopenia. 11. Right lower lobe consolidation and pleural effusion. 12. Cardiomegaly. 13. A 2-cm fat containing umbilical hernia. 14. Enlarged bilateral inguinal lymphadenopathy. 15. Sinus tachycardia with left axis deviation and questionable lateral ischemic changes on the EKG. 16. Left anterior hemiblock. 1. Right gluteal abscess cellulitis. 2. Nonsustained ventricular tachycardia. 3. Chest pain. 4. Sinus tachycardia. 5. Status post uncontrolled hypertension. 6. Leukopenia, anemia, thrombocytopenia, pancytopenia. 7. End-stage renal disease, hemodialysis dependent. 8. Chest pain with elevated troponin, etiology unclear in end stage renal dialysis patient. 9. Mild hyperbilirubinemia. 10. Proteinuria, microscopic hematuria, pyuria, bacteriuria. 11. Sinus tachycardia with left axis deviation and inferolateral ischemic changes. 12. Possible right lower lobe pneumonia. 13. Cardiomegaly. 14. Nonsustained ventricular tachycardia, asymptomatic. 15. Right pleural effusion. 16. Questionable bladder wall thickening with prostatomegaly. 17. Small umbilical hernia. 18. Right buttock abscess. 19. Possible cystitis. 20. Right lower lobe atelectasis versus pneumonia. 21. Left axis deviation. 22. Increasing left pleural effusion and possibly loculated left pleural effusion. 23. Right lower lobe atelectasis and pneumonia with possible pulmonary vascular congestion. 24. Increasing right pleural effusion and pathology. 25. Increasing pleural effusion. 26. Right lower lobe consolidation, cardiomegaly and right pleural effusion. 27. Umbilical hernia. 28. Bilateral inguinal lymphadenopathy. 29. End-stage renal disease, hemodialysis dependent three times a week. 30. Sepsis secondary to right gluteal abscess versus cellulitis. 31. Probable acute non-ST elevation myocardial infarction with elevated troponin. 32. Tachycardia. 33. High-grade fever of 102.8. 34. Pancytopenia. 35. Dilated cardiomyopathy. 36. Status post incision and drainage of the right-sided gluteal abscess. 37. Hypertensive cardiomyopathy. 38. Status post automatic implantable cardioverter-defibrillator implant. 39. Secondary hyperparathyroidism. 40. End-stage dilated cardiomyopathy with ejection fraction of 25%. 41. Acute on chronic recurrent systolic congestive heart failure with dilated cardiomyopathy. 42. IV milrinone dependent. 43. Hypertension. 1. Status post ventricular tachycardia. 2. Status post AICD shocks. 3. Status post cardiac catheterization. 4. Dilated cardiomyopathy. 5. Right gluteal abscess versus cellulitis versus skin infection. 6. Pancytopenia, etiology undetermined. 7. Questionable non-ST elevation myocardial infarction with elevated troponin versus elevated troponin in end-stage renal disease hemodialysis-dependent patient. 8. History of hypertension. 9. History of epistaxis. 10. Status post incision and drainage of the right gluteal abscess versus cellulitis. 11. Recurrent persistent high-grade fever. 1. Status post ventricular tachycardia. 2. Status post automated implantable cardioverter defibrillator shock. 3. High-grade fever. 4. Questionable sepsis versus systemic inflammatory response syndrome. 5. End-stage renal disease, hemodialysis dependent. 6. Questionable and possible right gluteal abscess versus cellulitis in skin structure. 7. Pancytopenia. 8. End-stage renal disease, hemodialysis dependent. 9. Dilated cardiomyopathy. 10. Status post automated implantable cardioverter-defibrillator implant. 11. Recurrent persistent high-grade fever. 1. Right gluteal abscess versus cellulitis versus skin infection with high-grade fever of 103 degrees Fahrenheit. 2. Tachycardia. 3. History of hypertension. 4. History of noncompliance. 5. Episodic transient hypertension. 6. Pancytopenia with leukopenia, anemia, thrombocytopenia. 7. End-stage renal disease, hemodialysis dependent, three times a week. 8. Questionable non-ST elevation myocardial infarction with elevated troponin. 9. Proteinuria, glycosuria, microscopic hematuria, pyuria, bacteriuria. 10. Pancytopenia. 11. Right lower lobe consolidation and pleural effusion. 12. Cardiomegaly. 13. A 2-cm fat containing umbilical hernia. 14. Enlarged bilateral inguinal lymphadenopathy. 15. Sinus tachycardia with left axis deviation and questionable lateral ischemic changes on the EKG. 16. Left anterior hemiblock. 1. Right gluteal abscess cellulitis. 2. Nonsustained ventricular tachycardia. 3. Chest pain. 4. Sinus tachycardia. 5. Status post uncontrolled hypertension. 6. Leukopenia, anemia, thrombocytopenia, pancytopenia. 7. End-stage renal disease, hemodialysis dependent. 8. Chest pain with elevated troponin, etiology unclear in end stage renal dialysis patient. 9. Mild hyperbilirubinemia. 10. Proteinuria, microscopic hematuria, pyuria, bacteriuria. 11. Sinus tachycardia with left axis deviation and inferolateral ischemic changes. 12. Possible right lower lobe pneumonia. 13. Cardiomegaly. 14. Nonsustained ventricular tachycardia, asymptomatic. 15. Right pleural effusion. 16. Questionable bladder wall thickening with prostatomegaly. 17. Small umbilical hernia. 18. Right buttock abscess. 19. Possible cystitis. 20. Right lower lobe atelectasis versus pneumonia. 21. Left axis deviation. 22. Increasing left pleural effusion and possibly loculated left pleural effusion. 23. Right lower lobe atelectasis and pneumonia with possible pulmonary vascular congestion. 24. Increasing right pleural effusion and pathology. 25. Increasing pleural effusion. 26. Right lower lobe consolidation, cardiomegaly and right pleural effusion. 27. Umbilical hernia. 28. Bilateral inguinal lymphadenopathy. 29. End-stage renal disease, hemodialysis dependent three times a week. 30. Sepsis secondary to right gluteal abscess versus cellulitis. 31. Probable acute non-ST elevation myocardial infarction with elevated troponin. 32. Tachycardia. 33. High-grade fever of 102.8. 34. Pancytopenia. 35. Dilated cardiomyopathy. 36. Status post incision and drainage of the right-sided gluteal abscess. 37. Hypertensive cardiomyopathy. 38. Status post automatic implantable cardioverter-defibrillator implant. 39. Secondary hyperparathyroidism. 40. End-stage dilated cardiomyopathy with ejection fraction of 25%. 41. Acute on chronic recurrent systolic congestive heart failure with dilated cardiomyopathy. 42. IV milrinone dependent. 43. Hypertension. 1. Status post ventricular tachycardia. 2. Status post automated implantable cardioverter defibrillator shock. 3. High-grade fever. 4. Questionable sepsis versus systemic inflammatory response syndrome. 5. End-stage renal disease, hemodialysis dependent. 6. Questionable and possible right gluteal abscess versus cellulitis in skin structure. 7. Pancytopenia. 8. End-stage renal disease, hemodialysis dependent. 9. Dilated cardiomyopathy. 10. Status post automated implantable cardioverter-defibrillator implant. 11. Recurrent persistent high-grade fever. 1. Right gluteal abscess versus cellulitis versus skin infection with high-grade fever of 103 degrees Fahrenheit. 2. Tachycardia. 3. History of hypertension. 4. History of noncompliance. 5. Episodic transient hypertension. 6. Pancytopenia with leukopenia, anemia, thrombocytopenia. 7. End-stage renal disease, hemodialysis dependent, three times a week. 8. Questionable non-ST elevation myocardial infarction with elevated troponin. 9. Proteinuria, glycosuria, microscopic hematuria, pyuria, bacteriuria. 10. Pancytopenia. 11. Right lower lobe consolidation and pleural effusion. 12. Cardiomegaly. 13. A 2-cm fat containing umbilical hernia. 14. Enlarged bilateral inguinal lymphadenopathy. 15. Sinus tachycardia with left axis deviation and questionable lateral ischemic changes on the EKG. 16. Left anterior hemiblock. 1. Right gluteal abscess cellulitis. 2. Nonsustained ventricular tachycardia. 3. Chest pain. 4. Sinus tachycardia. 5. Status post uncontrolled hypertension. 6. Leukopenia, anemia, thrombocytopenia, pancytopenia. 7. End-stage renal disease, hemodialysis dependent. 8. Chest pain with elevated troponin, etiology unclear in end stage renal dialysis patient. 9. Mild hyperbilirubinemia. 10. Proteinuria, microscopic hematuria, pyuria, bacteriuria. 11. Sinus tachycardia with left axis deviation and inferolateral ischemic changes. 12. Possible right lower lobe pneumonia. 13. Cardiomegaly. 14. Nonsustained ventricular tachycardia, asymptomatic. 15. Right pleural effusion. 16. Questionable bladder wall thickening with prostatomegaly. 17. Small umbilical hernia. 18. Right buttock abscess. 19. Possible cystitis. 20. Right lower lobe atelectasis versus pneumonia. 21. Left axis deviation. 22. Increasing left pleural effusion and possibly loculated left pleural effusion. 23. Right lower lobe atelectasis and pneumonia with possible pulmonary vascular congestion. 24. Increasing right pleural effusion and pathology. 25. Increasing pleural effusion. 26. Right lower lobe consolidation, cardiomegaly and right pleural effusion. 27. Umbilical hernia. 28. Bilateral inguinal lymphadenopathy. 29. End-stage renal disease, hemodialysis dependent three times a week. 30. Sepsis secondary to right gluteal abscess versus cellulitis. 31. Probable acute non-ST elevation myocardial infarction with elevated troponin. 32. Tachycardia. 33. High-grade fever of 102.8. 34. Pancytopenia. 35. Dilated cardiomyopathy. 36. Status post incision and drainage of the right-sided gluteal abscess. 37. Hypertensive cardiomyopathy. 38. Status post automatic implantable cardioverter-defibrillator implant. 39. Secondary hyperparathyroidism. 40. End-stage dilated cardiomyopathy with ejection fraction of 25%. 41. Acute on chronic recurrent systolic congestive heart failure with dilated cardiomyopathy. 42. IV milrinone dependent. 43. Hypertension. 1. Right gluteal abscess versus cellulitis versus skin infection with high-grade fever of 103 degrees Fahrenheit. 2. Tachycardia. 3. History of hypertension. 4. History of noncompliance. 5. Episodic transient hypertension. 6. Pancytopenia with leukopenia, anemia, thrombocytopenia. 7. End-stage renal disease, hemodialysis dependent, three times a week. 8. Questionable non-ST elevation myocardial infarction with elevated troponin. 9. Proteinuria, glycosuria, microscopic hematuria, pyuria, bacteriuria. 10. Pancytopenia. 11. Right lower lobe consolidation and pleural effusion. 12. Cardiomegaly. 13. A 2-cm fat containing umbilical hernia. 14. Enlarged bilateral inguinal lymphadenopathy. 15. Sinus tachycardia with left axis deviation and questionable lateral ischemic changes on the EKG. 16. Left anterior hemiblock. 1. Right gluteal abscess cellulitis. 2. Nonsustained ventricular tachycardia. 3. Chest pain. 4. Sinus tachycardia. 5. Status post uncontrolled hypertension. 6. Leukopenia, anemia, thrombocytopenia, pancytopenia. 7. End-stage renal disease, hemodialysis dependent. 8. Chest pain with elevated troponin, etiology unclear in end stage renal dialysis patient. 9. Mild hyperbilirubinemia. 10. Proteinuria, microscopic hematuria, pyuria, bacteriuria. 11. Sinus tachycardia with left axis deviation and inferolateral ischemic changes. 12. Possible right lower lobe pneumonia. 13. Cardiomegaly. 14. Nonsustained ventricular tachycardia, asymptomatic. 15. Right pleural effusion. 16. Questionable bladder wall thickening with prostatomegaly. 17. Small umbilical hernia. 18. Right buttock abscess. 19. Possible cystitis. 20. Right lower lobe atelectasis versus pneumonia. 21. Left axis deviation. 22. Increasing left pleural effusion and possibly loculated left pleural effusion. 23. Right lower lobe atelectasis and pneumonia with possible pulmonary vascular congestion. 24. Increasing right pleural effusion and pathology. 25. Increasing pleural effusion. 26. Right lower lobe consolidation, cardiomegaly and right pleural effusion. 27. Umbilical hernia. 28. Bilateral inguinal lymphadenopathy. 29. End-stage renal disease, hemodialysis dependent three times a week. 30. Sepsis secondary to right gluteal abscess versus cellulitis. 31. Probable acute non-ST elevation myocardial infarction with elevated troponin. 32. Tachycardia. 33. High-grade fever of 102.8. 34. Pancytopenia. 35. Dilated cardiomyopathy. 36. Status post incision and drainage of the right-sided gluteal abscess. 37. Hypertensive cardiomyopathy. 38. Status post automatic implantable cardioverter-defibrillator implant. 39. Secondary hyperparathyroidism. 40. End-stage dilated cardiomyopathy with ejection fraction of 25%. 41. Acute on chronic recurrent systolic congestive heart failure with dilated cardiomyopathy. 42. IV milrinone dependent. 43. Hypertension. 1. Right gluteal abscess cellulitis. 2. Nonsustained ventricular tachycardia. 3. Chest pain. 4. Sinus tachycardia. 5. Status post uncontrolled hypertension. 6. Leukopenia, anemia, thrombocytopenia, pancytopenia. 7. End-stage renal disease, hemodialysis dependent. 8. Chest pain with elevated troponin, etiology unclear in end stage renal dialysis patient. 9. Mild hyperbilirubinemia. 10. Proteinuria, microscopic hematuria, pyuria, bacteriuria. 11. Sinus tachycardia with left axis deviation and inferolateral ischemic changes. 12. Possible right lower lobe pneumonia. 13. Cardiomegaly. 14. Nonsustained ventricular tachycardia, asymptomatic. 15. Right pleural effusion. 16. Questionable bladder wall thickening with prostatomegaly. 17. Small umbilical hernia. 18. Right buttock abscess. 19. Possible cystitis. 20. Right lower lobe atelectasis versus pneumonia. 21. Left axis deviation. 22. Increasing left pleural effusion and possibly loculated left pleural effusion. 23. Right lower lobe atelectasis and pneumonia with possible pulmonary vascular congestion. 24. Increasing right pleural effusion and pathology. 25. Increasing pleural effusion. 26. Right lower lobe consolidation, cardiomegaly and right pleural effusion. 27. Umbilical hernia. 28. Bilateral inguinal lymphadenopathy. 29. End-stage renal disease, hemodialysis dependent three times a week. 30. Sepsis secondary to right gluteal abscess versus cellulitis. 31. Probable acute non-ST elevation myocardial infarction with elevated troponin. 32. Tachycardia. 33. High-grade fever of 102.8. 34. Pancytopenia. 35. Dilated cardiomyopathy. 36. Status post incision and drainage of the right-sided gluteal abscess. 37. Hypertensive cardiomyopathy. 38. Status post automatic implantable cardioverter-defibrillator implant. 39. Secondary hyperparathyroidism. 40. End-stage dilated cardiomyopathy with ejection fraction of 25%. 41. Acute on chronic recurrent systolic congestive heart failure with dilated cardiomyopathy. 42. IV milrinone dependent. 43. Hypertension. PLAN: At this time, the patient has been ordered transfer out of the ICU by Dr. Sandro Horner. The patient has been ordered serial labs. Current consultation nephrology, infectious disease, cardiology, surgery, hematology/oncology. CURRENT MEDICATIONS: Bacid 1 capsule twice a day, doxycycline 100 mg twice a day, Lopressor 50 mg twice a day, meropenem 500 mg IV, PhosLo 667 mg with meals, Protonix 20 mg daily, Tylenol p.o. and suppository q.4 p.r.n. for temperature greater than equal to 99.5, Zestril 10 mg daily. The patient has been ordered out of bed to chair. The patient has been ordered transfer out of the ICU. The patient has been ordered SCDs and MAMADOU stockings. Dictated and electronically signed, not read. Refugio Varner MD MTDScott
[2017-06-09 06:43] VITALS: O2SAT 94
[2017-06-09] MEDS: Pantoprazole 20 mg EC Tab PO SCH (06:44)
[2017-06-09 08:16] LABS: HEMATOCRIT 29.7 % (42.0-52.0); MEAN CORPUSCULAR HEMOGLOBIN 29.4 pg (25.0-35.0); MEAN CORPUSCULAR HGB CONC 32.7 g/dl (31.0-37.0); MEAN PLATELET VOLUME 9.8 fl (7.0-11.0); RED CELL DISTRIBUTION WIDTH 14.7 % (11.5-14.5)
[2017-06-09 08:38] LABS: BILIRUBIN,TOTAL 1.3 mg/dL (0.2-1.3); CALCIUM 8.6 mg/dL (8.4-10.5); POTASSIUM 4.5 mmol/L (3.6-5.0); TOTAL PROTEIN 6.5 g/dL (5.8-8.3)
[2017-06-09 09:22] LABS: CREATININE, RANDOM URINE 45 mg/dL (20-370)
[2017-06-09] MEDS: Meropenem 500 MG in Sodium Chloride 0.9% 100 ML IVPB SCH (09:53)
[2017-06-09 11:55] VITALS: RESP 18; TEMP 98.7
[2017-06-09] MEDS: Lactobacillus Acidophilus 500 MU Cap PO SCH ×2 (13:23→17:56)
[2017-06-09 16:11] VITALS: PULSE 80
[2017-06-09 17:58] VITALS: BP 158/91
--- NOTE | 2017-06-09 18:32 | CP.PCM.PN ---
Subjective - Date & Time of Evaluation Date of Evaluation: 06/09/17 Time of Evaluation: 18:00 - Subjective Subjective: Patient has decided to leave AMA for personal reasons. He is alert,awake,oriented x 3 and is ambulatory. His vital signs are stable. Patient states he does not want any further examinations,tests or treatment at this time. Patient is aware of his medical problems,namely Gluteal infection,Cardiomyopathy ,Chronic CHF,CAD ESRD,HTN.He also has an AICD. He is also aware of the fact that he needs to be monitered closely and get the treatment he needs. He was told that if he does not get the care he needs,his infection could worsen ,spread,lead to sepsis and even ,his cardiac condition and HTN could worsen and lead to ,not getting dialysis in a timely manner could lead to fluid retention,pulmonary edema and or/even . Patient states he understands everything he is told,still wants to leave AMA. He was advised to return to the ER if needed. Time spent with pt:35 mins Objective - Vital Signs/Intake and Output Vital Signs (last 24 hours): Temp Pulse Resp BP Pulse Ox 98.7 F 80 18 158/91 H 94 L 06/09/17 11:54 06/09/17 17:56 06/09/17 11:54 06/09/17 17:56 06/09/17 06:00 Intake and Output: 06/09/17 06/09/17 06:59 18:59 Intake Total 660 Output Total 0 Balance 660 - Medications Medications: Current Medications Acetaminophen (Tylenol 325mg Tab) 650 mg PO Q4H PRN PRN Reason: TEMP>=99.5F Last Admin: 06/07/17 01:10 Dose: 650 mg Acetaminophen (Tylenol 325 Mg Supp) 325 mg RC Q4H PRN PRN Reason: Pain, moderate (4-7) Calcium Acetate (Phoslo) 667 mg PO WM REED Last Admin: 06/09/17 17:56 Dose: 667 mg Doxycycline Hyclate (Doryx) 100 mg PO Q12 REED PRN Reason: Protocol Stop: 06/17/17 22:01 Last Admin: 06/09/17 09:52 Dose: 100 mg Meropenem 500 mg/ Sodium (Chloride) 100 mls @ 100 mls/hr IVPB Q12 REED PRN Reason: Protocol Stop: 06/11/17 06:57 Last Admin: 06/09/17 09:53 Dose: 100 mls/hr Lactobacillus Acidophilus (Bacid Acidophilus) 1 cap PO BID [facility] Last Admin: 06/09/17 17:56 Dose: 1 cap Lisinopril (Zestril) 10 mg PO DAILY [facility] Last Admin: 06/09/17 09:53 Dose: 10 mg Metoprolol Tartrate (Lopressor) 50 mg PO BID [facility] Last Admin: 06/09/17 17:56 Dose: 50 mg Pantoprazole Sodium (Protonix Ec Tab) 20 mg PO 0600 [facility] Last Admin: 06/09/17 06:44 Dose: 20 mg - Labs Labs: 06/09/17 07:20 06/09/17 07:20 PT 12.7 Seconds (9.9-11.8) H 06/06/17 06:30 INR 1.18 (0.93-1.08) H 06/06/17 06:30 APTT 34.4 Seconds (23.7-30.8) H 06/06/17 06:30
--- NOTE | 2017-06-09 21:32 | PN ---
DATE: 06/09/2017 SUBJECTIVE: The patient is in bed, in no acute distress. PHYSICAL EXAMINATION VITAL SIGNS: Temperature is 98, blood pressure is 140/90, respiratory rate of 18, heart rate of 86. HEENT: Unremarkable. NECK: Supple. LUNGS: Decreased breath sounds. HEART: Normal S1 and S2. ABDOMEN: Soft and nontender. LABORATORY DATA: Reveals a white count of 5,000, hemoglobin of 9, platelets of 96, BUN of 64, creatinine of 10. Serology is noted. Microbiology is reviewed. Review of orders revealed the patient to be on doxycycline and meropenem. ASSESSMENT AND PLAN: This is a 37-year-old male with sepsis, right gluteal purulent skin and skin/soft tissue infection and post incision and drainage and abscess post procedure day #7. Negative cultures and probable acute non-ST elevation myocardial infarction, pancytopenia; again being worked up, doxycycline and meropenem. We will switch to p.o. antibiotics to compete therapy with p.o. within next 24 hours. Marcus Kaur MD
[2017-06-11 15:58] LABS: GAMMA GLOBULIN 27.3 Relative %
--- NOTE | 2017-06-11 18:57 | DS ---
LOCATION: The patient was on telemetry, 268, bed 2.. HISTORY OF PRESENT ILLNESS: The patient started threatening the nurses that she is going to sign out against medical advise if he is not discharged today. The patient was seen and evaluated by the house physician, Dr. Kasper. The patient was explained the risk and consequences of signing out against medical advise and jeopardizing his inpatient care and need for continuation of IV antibiotics, need for continuation of all the other treatment, but the patient was explained all the above. The patient understood and acknowledged all the risks and consequences and the patient signed out against medical advice. PHYSICAL EXAMINATION GENERAL: The patient is seen in room 268 bed 2. VITAL SIGNS: The patient's vital signs were reviewed. The patient has been afebrile. Telemetry shows sinus rhythm. Respiration 18-22, blood pressure ranging in 140 systolic, diastolic in 80s and 70s. HEENT: Head examination, normocephalic, atraumatic. HEENT examination shows pinkish pale conjunctivae. Anicteric sclerae. No oropharyngeal lesion. NECK: No neck rigidity. CHEST: Positive upper chest defibrillator, positive kyphosis. Questionable decreased breath sound at the bases, left more than the right. CARDIOVASCULAR: Shows S1, S2, regular rhythm. Positive systolic murmur left sternal border, right second intercostal space. ABDOMEN: Protuberant, obese. Positive bowel sounds. GENITALIA: Male. RECTAL: Deferred. EXTREMITIES: Show positive swelling of the lower extremity. NEUROLOGIC: The patient is alert, awake, oriented x3. Cranial nerves II-XII intact. Gait examination is independent. It appears that rhe patient is pending most spending most of the time lying down in the bed watching TV and talking on the phone. NEUROLOGICAL: The .patient is alert, awake, oriented x3. Cranial nerves II-XII grossly intact. Motor strength is 5/5. PSYCHIATRIC: Examination is negative for anxiety, depression. Negative for suicidal, homicidal ideation. Negative for auditory or vision hallucination. LABORATORY DATA: The patient's diagnostic from 06/09 reviewed. FINAL IMPRESSION, PLAN, AND DISCHARGE DIAGNOSES: 1. Questionable sepsis secondary to right gluteal abscess versus cellulitis versus skin structure infection. 2. Status post incision and drainage. 3. Ventricular tachycardia. 4. Questionable supraventricular tachycardia. 5. Status post defibrillator shocks. 6. Status post cardiac catheterization. 7. Dilated cardiomyopathy. 8. Uncontrolled hypertension. 9. Acute on chronic recurrent systolic congestive heart failure. 10. Pancytopenia, etiology undetermined. 11. Status post IV milrinone drip treatment and status post amiodarone treatment. 12, Status post IV milrinone drip treatment and status post IV amiodarone treatment. 14, Nonsustained ventricular tachycardia. 15. End-stage renal disease, hemodialysis dependant. 16. Obesity. 17. Status post AICD implant. 1. Status post cardiac catheterization. 2. Acute on chronic recurrent systolic congestive heart failure. 3. Status post IV milrinone drip treatment. 4. Ventricular tachycardia. 5. Status post IV amiodarone treatment. 6. Marked dilated diffusely hypokinetic left ventricle with ejection fraction between 15-20%. 7. Dilated aorta without aortic insufficiency. 8. High-grade fever (resolving). 9. Sinus tachycardia. 10. Hypertension. 11. Tachypnea. 12. Questionable sleep apnea with hypoxemia and snoring. 13. Pancytopenia with leukopenia, anemia, thrombocytopenia. 14. Elevated erythrocyte sedimentation rate. 15. Same day admit and discharge. 16. Questionable non-ST elevation myocardial infarction with elevated troponin. 17. End-stage renal disease, hemodialysis dependent. 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 19. Proteinuria, glycosuria, hematuria, bacteriuria. 20. Sepsis with right gluteal abscess versus cellulitis versus skin structure infection. 21. Status post incision and drainage. 22. End-stage renal disease, hemodialysis dependent. 23. Right gluteal abscess. 24. Questionable supraventricular tachycardia. 1. Status post ventricular tachycardia. 2. Status post AICD shocks. 3. Status post cardiac catheterization. 4. Dilated cardiomyopathy. 5. Right gluteal abscess versus cellulitis versus skin infection. 6. Pancytopenia, etiology undetermined. 7. Questionable non-ST elevation myocardial infarction with elevated troponin versus elevated troponin in end-stage renal disease hemodialysis-dependent patient. 8. History of hypertension. 9. History of epistaxis. 10. Status post incision and drainage of the right gluteal abscess versus cellulitis. 11. Recurrent persistent high-grade fever. 1. Status post ventricular tachycardia. 2. Status post automated implantable cardioverter defibrillator shock. 3. High-grade fever. 4. Questionable sepsis versus systemic inflammatory response syndrome. 5. End-stage renal disease, hemodialysis dependent. 6. Questionable and possible right gluteal abscess versus cellulitis in skin structure. 7. Pancytopenia. 8. End-stage renal disease, hemodialysis dependent. 9. Dilated cardiomyopathy. 10. Status post automated implantable cardioverter-defibrillator implant. 11. Recurrent persistent high-grade fever. 1. Right gluteal abscess versus cellulitis versus skin infection with high-grade fever of 103 degrees Fahrenheit. 2. Tachycardia. 3. History of hypertension. 4. History of noncompliance. 5. Episodic transient hypertension. 6. Pancytopenia with leukopenia, anemia, thrombocytopenia. 7. End-stage renal disease, hemodialysis dependent, three times a week. 8. Questionable non-ST elevation myocardial infarction with elevated troponin. 9. Proteinuria, glycosuria, microscopic hematuria, pyuria, bacteriuria. 10. Pancytopenia. 11. Right lower lobe consolidation and pleural effusion. 12. Cardiomegaly. 13. A 2-cm fat containing umbilical hernia. 14. Enlarged bilateral inguinal lymphadenopathy. 15. Sinus tachycardia with left axis deviation and questionable lateral ischemic changes on the EKG. 16. Left anterior hemiblock. 1. Right gluteal abscess cellulitis. 2. Nonsustained ventricular tachycardia. 3. Chest pain. 4. Sinus tachycardia. 5. Status post uncontrolled hypertension. 6. Leukopenia, anemia, thrombocytopenia, pancytopenia. 7. End-stage renal disease, hemodialysis dependent. 8. Chest pain with elevated troponin, etiology unclear in end stage renal dialysis patient. 9. Mild hyperbilirubinemia. 10. Proteinuria, microscopic hematuria, pyuria, bacteriuria. 11. Sinus tachycardia with left axis deviation and inferolateral ischemic changes. 12. Possible right lower lobe pneumonia. 13. Cardiomegaly. 14. Nonsustained ventricular tachycardia, asymptomatic. 15. Right pleural effusion. 16. Questionable bladder wall thickening with prostatomegaly. 17. Small umbilical hernia. 18. Right buttock abscess. 19. Possible cystitis. 20. Right lower lobe atelectasis versus pneumonia. 21. Left axis deviation. 22. Increasing left pleural effusion and possibly loculated left pleural effusion. 23. Right lower lobe atelectasis and pneumonia with possible pulmonary vascular congestion. 24. Increasing right pleural effusion and pathology. 25. Increasing pleural effusion. 26. Right lower lobe consolidation, cardiomegaly and right pleural effusion. 27. Umbilical hernia. 28. Bilateral inguinal lymphadenopathy. 29. End-stage renal disease, hemodialysis dependent three times a week. 30. Sepsis secondary to right gluteal abscess versus cellulitis. 31. Probable acute non-ST elevation myocardial infarction with elevated troponin. 32. Tachycardia. 33. High-grade fever of 102.8. 34. Pancytopenia. 35. Dilated cardiomyopathy. 36. Status post incision and drainage of the right-sided gluteal abscess. 37. Hypertensive cardiomyopathy. 38. Status post automatic implantable cardioverter-defibrillator implant. 39. Secondary hyperparathyroidism. 40. End-stage dilated cardiomyopathy with ejection fraction of 25%. 41. Acute on chronic recurrent systolic congestive heart failure with dilated cardiomyopathy. 42. IV milrinone dependent. 43. Hypertension. 1. Status post cardiac catheterization. 2. Acute on chronic recurrent systolic congestive heart failure. 3. Status post IV milrinone drip treatment. 4. Ventricular tachycardia. 5. Status post IV amiodarone treatment. 6. Marked dilated diffusely hypokinetic left ventricle with ejection fraction between 15-20%. 7. Dilated aorta without aortic insufficiency. 8. High-grade fever (resolving). 9. Sinus tachycardia. 10. Hypertension. 11. Tachypnea. 12. Questionable sleep apnea with hypoxemia and snoring. 13. Pancytopenia with leukopenia, anemia, thrombocytopenia. 14. Elevated erythrocyte sedimentation rate. 15. Same day admit and discharge. 16. Questionable non-ST elevation myocardial infarction with elevated troponin. 17. End-stage renal disease, hemodialysis dependent. 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 19. Proteinuria, glycosuria, hematuria, bacteriuria. 20. Sepsis with right gluteal abscess versus cellulitis versus skin structure infection. 21. Status post incision and drainage. 22. End-stage renal disease, hemodialysis dependent. 23. Right gluteal abscess. 24. Questionable supraventricular tachycardia. 1. Status post ventricular tachycardia. 2. Status post AICD shocks. 3. Status post cardiac catheterization. 4. Dilated cardiomyopathy. 5. Right gluteal abscess versus cellulitis versus skin infection. 6. Pancytopenia, etiology undetermined. 7. Questionable non-ST elevation myocardial infarction with elevated troponin versus elevated troponin in end-stage renal disease hemodialysis-dependent patient. 8. History of hypertension. 9. History of epistaxis. 10. Status post incision and drainage of the right gluteal abscess versus cellulitis. 11. Recurrent persistent high-grade fever. 1. Status post ventricular tachycardia. 2. Status post automated implantable cardioverter defibrillator shock. 3. High-grade fever. 4. Questionable sepsis versus systemic inflammatory response syndrome. 5. End-stage renal disease, hemodialysis dependent. 6. Questionable and possible right gluteal abscess versus cellulitis in skin structure. 7. Pancytopenia. 8. End-stage renal disease, hemodialysis dependent. 9. Dilated cardiomyopathy. 10. Status post automated implantable cardioverter-defibrillator implant. 11. Recurrent persistent high-grade fever. 1. Right gluteal abscess versus cellulitis versus skin infection with high-grade fever of 103 degrees Fahrenheit. 2. Tachycardia. 3. History of hypertension. 4. History of noncompliance. 5. Episodic transient hypertension. 6. Pancytopenia with leukopenia, anemia, thrombocytopenia. 7. End-stage renal disease, hemodialysis dependent, three times a week. 8. Questionable non-ST elevation myocardial infarction with elevated troponin. 9. Proteinuria, glycosuria, microscopic hematuria, pyuria, bacteriuria. 10. Pancytopenia. 11. Right lower lobe consolidation and pleural effusion. 12. Cardiomegaly. 13. A 2-cm fat containing umbilical hernia. 14. Enlarged bilateral inguinal lymphadenopathy. 15. Sinus tachycardia with left axis deviation and questionable lateral ischemic changes on the EKG. 16. Left anterior hemiblock. 1. Right gluteal abscess cellulitis. 2. Nonsustained ventricular tachycardia. 3. Chest pain. 4. Sinus tachycardia. 5. Status post uncontrolled hypertension. 6. Leukopenia, anemia, thrombocytopenia, pancytopenia. 7. End-stage renal disease, hemodialysis dependent. 8. Chest pain with elevated troponin, etiology unclear in end stage renal dialysis patient. 9. Mild hyperbilirubinemia. 10. Proteinuria, microscopic hematuria, pyuria, bacteriuria. 11. Sinus tachycardia with left axis deviation and inferolateral ischemic changes. 12. Possible right lower lobe pneumonia. 13. Cardiomegaly. 14. Nonsustained ventricular tachycardia, asymptomatic. 15. Right pleural effusion. 16. Questionable bladder wall thickening with prostatomegaly. 17. Small umbilical hernia. 18. Right buttock abscess. 19. Possible cystitis. 20. Right lower lobe atelectasis versus pneumonia. 21. Left axis deviation. 22. Increasing left pleural effusion and possibly loculated left pleural effusion. 23. Right lower lobe atelectasis and pneumonia with possible pulmonary vascular congestion. 24. Increasing right pleural effusion and pathology. 25. Increasing pleural effusion. 26. Right lower lobe consolidation, cardiomegaly and right pleural effusion. 27. Umbilical hernia. 28. Bilateral inguinal lymphadenopathy. 29. End-stage renal disease, hemodialysis dependent three times a week. 30. Sepsis secondary to right gluteal abscess versus cellulitis. 31. Probable acute non-ST elevation myocardial infarction with elevated troponin. 32. Tachycardia. 33. High-grade fever of 102.8. 34. Pancytopenia. 35. Dilated cardiomyopathy. 36. Status post incision and drainage of the right-sided gluteal abscess. 37. Hypertensive cardiomyopathy. 38. Status post automatic implantable cardioverter-defibrillator implant. 39. Secondary hyperparathyroidism. 40. End-stage dilated cardiomyopathy with ejection fraction of 25%. 41. Acute on chronic recurrent systolic congestive heart failure with dilated cardiomyopathy. 42. IV milrinone dependent. 43. Hypertension. 1. Status post ventricular tachycardia. 2. Status post AICD shocks. 3. Status post cardiac catheterization. 4. Dilated cardiomyopathy. 5. Right gluteal abscess versus cellulitis versus skin infection. 6. Pancytopenia, etiology undetermined. 7. Questionable non-ST elevation myocardial infarction with elevated troponin versus elevated troponin in end-stage renal disease hemodialysis-dependent patient. 8. History of hypertension. 9. History of epistaxis. 10. Status post incision and drainage of the right gluteal abscess versus cellulitis. 11. Recurrent persistent high-grade fever. 1. Status post ventricular tachycardia. 2. Status post automated implantable cardioverter defibrillator shock. 3. High-grade fever. 4. Questionable sepsis versus systemic inflammatory response syndrome. 5. End-stage renal disease, hemodialysis dependent. 6. Questionable and possible right gluteal abscess versus cellulitis in skin structure. 7. Pancytopenia. 8. End-stage renal disease, hemodialysis dependent. 9. Dilated cardiomyopathy. 10. Status post automated implantable cardioverter-defibrillator implant. 11. Recurrent persistent high-grade fever. 1. Right gluteal abscess versus cellulitis versus skin infection with high-grade fever of 103 degrees Fahrenheit. 2. Tachycardia. 3. History of hypertension. 4. History of noncompliance. 5. Episodic transient hypertension. 6. Pancytopenia with leukopenia, anemia, thrombocytopenia. 7. End-stage renal disease, hemodialysis dependent, three times a week. 8. Questionable non-ST elevation myocardial infarction with elevated troponin. 9. Proteinuria, glycosuria, microscopic hematuria, pyuria, bacteriuria. 10. Pancytopenia. 11. Right lower lobe consolidation and pleural effusion. 12. Cardiomegaly. 13. A 2-cm fat containing umbilical hernia. 14. Enlarged bilateral inguinal lymphadenopathy. 15. Sinus tachycardia with left axis deviation and questionable lateral ischemic changes on the EKG. 16. Left anterior hemiblock. 1. Right gluteal abscess cellulitis. 2. Nonsustained ventricular tachycardia. 3. Chest pain. 4. Sinus tachycardia. 5. Status post uncontrolled hypertension. 6. Leukopenia, anemia, thrombocytopenia, pancytopenia. 7. End-stage renal disease, hemodialysis dependent. 8. Chest pain with elevated troponin, etiology unclear in end stage renal dialysis patient. 9. Mild hyperbilirubinemia. 10. Proteinuria, microscopic hematuria, pyuria, bacteriuria. 11. Sinus tachycardia with left axis deviation and inferolateral ischemic changes. 12. Possible right lower lobe pneumonia. 13. Cardiomegaly. 14. Nonsustained ventricular tachycardia, asymptomatic. 15. Right pleural effusion. 16. Questionable bladder wall thickening with prostatomegaly. 17. Small umbilical hernia. 18. Right buttock abscess. 19. Possible cystitis. 20. Right lower lobe atelectasis versus pneumonia. 21. Left axis deviation. 22. Increasing left pleural effusion and possibly loculated left pleural effusion. 23. Right lower lobe atelectasis and pneumonia with possible pulmonary vascular congestion. 24. Increasing right pleural effusion and pathology. 25. Increasing pleural effusion. 26. Right lower lobe consolidation, cardiomegaly and right pleural effusion. 27. Umbilical hernia. 28. Bilateral inguinal lymphadenopathy. 29. End-stage renal disease, hemodialysis dependent three times a week. 30. Sepsis secondary to right gluteal abscess versus cellulitis. 31. Probable acute non-ST elevation myocardial infarction with elevated troponin. 32. Tachycardia. 33. High-grade fever of 102.8. 34. Pancytopenia. 35. Dilated cardiomyopathy. 36. Status post incision and drainage of the right-sided gluteal abscess. 37. Hypertensive cardiomyopathy. 38. Status post automatic implantable cardioverter-defibrillator implant. 39. Secondary hyperparathyroidism. 40. End-stage dilated cardiomyopathy with ejection fraction of 25%. 41. Acute on chronic recurrent systolic congestive heart failure with dilated cardiomyopathy. 42. IV milrinone dependent. 43. Hypertension. 1. Status post ventricular tachycardia. 2. Status post automated implantable cardioverter defibrillator shock. 3. High-grade fever. 4. Questionable sepsis versus systemic inflammatory response syndrome. 5. End-stage renal disease, hemodialysis dependent. 6. Questionable and possible right gluteal abscess versus cellulitis in skin structure. 7. Pancytopenia. 8. End-stage renal disease, hemodialysis dependent. 9. Dilated cardiomyopathy. 10. Status post automated implantable cardioverter-defibrillator implant. 11. Recurrent persistent high-grade fever. 1. Right gluteal abscess versus cellulitis versus skin infection with high-grade fever of 103 degrees Fahrenheit. 2. Tachycardia. 3. History of hypertension. 4. History of noncompliance. 5. Episodic transient hypertension. 6. Pancytopenia with leukopenia, anemia, thrombocytopenia. 7. End-stage renal disease, hemodialysis dependent, three times a week. 8. Questionable non-ST elevation myocardial infarction with elevated troponin. 9. Proteinuria, glycosuria, microscopic hematuria, pyuria, bacteriuria. 10. Pancytopenia. 11. Right lower lobe consolidation and pleural effusion. 12. Cardiomegaly. 13. A 2-cm fat containing umbilical hernia. 14. Enlarged bilateral inguinal lymphadenopathy. 15. Sinus tachycardia with left axis deviation and questionable lateral ischemic changes on the EKG. 16. Left anterior hemiblock. 1. Right gluteal abscess cellulitis. 2. Nonsustained ventricular tachycardia. 3. Chest pain. 4. Sinus tachycardia. 5. Status post uncontrolled hypertension. 6. Leukopenia, anemia, thrombocytopenia, pancytopenia. 7. End-stage renal disease, hemodialysis dependent. 8. Chest pain with elevated troponin, etiology unclear in end stage renal dialysis patient. 9. Mild hyperbilirubinemia. 10. Proteinuria, microscopic hematuria, pyuria, bacteriuria. 11. Sinus tachycardia with left axis deviation and inferolateral ischemic changes. 12. Possible right lower lobe pneumonia. 13. Cardiomegaly. 14. Nonsustained ventricular tachycardia, asymptomatic. 15. Right pleural effusion. 16. Questionable bladder wall thickening with prostatomegaly. 17. Small umbilical hernia. 18. Right buttock abscess. 19. Possible cystitis. 20. Right lower lobe atelectasis versus pneumonia. 21. Left axis deviation. 22. Increasing left pleural effusion and possibly loculated left pleural effusion. 23. Right lower lobe atelectasis and pneumonia with possible pulmonary vascular congestion. 24. Increasing right pleural effusion and pathology. 25. Increasing pleural effusion. 26. Right lower lobe consolidation, cardiomegaly and right pleural effusion. 27. Umbilical hernia. 28. Bilateral inguinal lymphadenopathy. 29. End-stage renal disease, hemodialysis dependent three times a week. 30. Sepsis secondary to right gluteal abscess versus cellulitis. 31. Probable acute non-ST elevation myocardial infarction with elevated troponin. 32. Tachycardia. 33. High-grade fever of 102.8. 34. Pancytopenia. 35. Dilated cardiomyopathy. 36. Status post incision and drainage of the right-sided gluteal abscess. 37. Hypertensive cardiomyopathy. 38. Status post automatic implantable cardioverter-defibrillator implant. 39. Secondary hyperparathyroidism. 40. End-stage dilated cardiomyopathy with ejection fraction of 25%. 41. Acute on chronic recurrent systolic congestive heart failure with dilated cardiomyopathy. 42. IV milrinone dependent. 43. Hypertension. 1. Right gluteal abscess versus cellulitis versus skin infection with high-grade fever of 103 degrees Fahrenheit. 2. Tachycardia. 3. History of hypertension. 4. History of noncompliance. 5. Episodic transient hypertension. 6. Pancytopenia with leukopenia, anemia, thrombocytopenia. 7. End-stage renal disease, hemodialysis dependent, three times a week. 8. Questionable non-ST elevation myocardial infarction with elevated troponin. 9. Proteinuria, glycosuria, microscopic hematuria, pyuria, bacteriuria. 10. Pancytopenia. 11. Right lower lobe consolidation and pleural effusion. 12. Cardiomegaly. 13. A 2-cm fat containing umbilical hernia. 14. Enlarged bilateral inguinal lymphadenopathy. 15. Sinus tachycardia with left axis deviation and questionable lateral ischemic changes on the EKG. 16. Left anterior hemiblock. 1. Right gluteal abscess cellulitis. 2. Nonsustained ventricular tachycardia. 3. Chest pain. 4. Sinus tachycardia. 5. Status post uncontrolled hypertension. 6. Leukopenia, anemia, thrombocytopenia, pancytopenia. 7. End-stage renal disease, hemodialysis dependent. 8. Chest pain with elevated troponin, etiology unclear in end stage renal dialysis patient. 9. Mild hyperbilirubinemia. 10. Proteinuria, microscopic hematuria, pyuria, bacteriuria. 11. Sinus tachycardia with left axis deviation and inferolateral ischemic changes. 12. Possible right lower lobe pneumonia. 13. Cardiomegaly. 14. Nonsustained ventricular tachycardia, asymptomatic. 15. Right pleural effusion. 16. Questionable bladder wall thickening with prostatomegaly. 17. Small umbilical hernia. 18. Right buttock abscess. 19. Possible cystitis. 20. Right lower lobe atelectasis versus pneumonia. 21. Left axis deviation. 22. Increasing left pleural effusion and possibly loculated left pleural effusion. 23. Right lower lobe atelectasis and pneumonia with possible pulmonary vascular congestion. 24. Increasing right pleural effusion and pathology. 25. Increasing pleural effusion. 26. Right lower lobe consolidation, cardiomegaly and right pleural effusion. 27. Umbilical hernia. 28. Bilateral inguinal lymphadenopathy. 29. End-stage renal disease, hemodialysis dependent three times a week. 30. Sepsis secondary to right gluteal abscess versus cellulitis. 31. Probable acute non-ST elevation myocardial infarction with elevated troponin. 32. Tachycardia. 33. High-grade fever of 102.8. 34. Pancytopenia. 35. Dilated cardiomyopathy. 36. Status post incision and drainage of the right-sided gluteal abscess. 37. Hypertensive cardiomyopathy. 38. Status post automatic implantable cardioverter-defibrillator implant. 39. Secondary hyperparathyroidism. 40. End-stage dilated cardiomyopathy with ejection fraction of 25%. 41. Acute on chronic recurrent systolic congestive heart failure with dilated cardiomyopathy. 42. IV milrinone dependent. 43. Hypertension. 1. Right gluteal abscess cellulitis. 2. Nonsustained ventricular tachycardia. 3. Chest pain. 4. Sinus tachycardia. 5. Status post uncontrolled hypertension. 6. Leukopenia, anemia, thrombocytopenia, pancytopenia. 7. End-stage renal disease, hemodialysis dependent. 8. Chest pain with elevated troponin, etiology unclear in end stage renal dialysis patient. 9. Mild hyperbilirubinemia. 10. Proteinuria, microscopic hematuria, pyuria, bacteriuria. 11. Sinus tachycardia with left axis deviation and inferolateral ischemic changes. 12. Possible right lower lobe pneumonia. 13. Cardiomegaly. 14. Nonsustained ventricular tachycardia, asymptomatic. 15. Right pleural effusion. 16. Questionable bladder wall thickening with prostatomegaly. 17. Small umbilical hernia. 18. Right buttock abscess. 19. Possible cystitis. 20. Right lower lobe atelectasis versus pneumonia. 21. Left axis deviation. 22. Increasing left pleural effusion and possibly loculated left pleural effusion. 23. Right lower lobe atelectasis and pneumonia with possible pulmonary vascular congestion. 24. Increasing right pleural effusion and pathology. 25. Increasing pleural effusion. 26. Right lower lobe consolidation, cardiomegaly and right pleural effusion. 27. Umbilical hernia. 28. Bilateral inguinal lymphadenopathy. 29. End-stage renal disease, hemodialysis dependent three times a week. 30. Sepsis secondary to right gluteal abscess versus cellulitis. 31. Probable acute non-ST elevation myocardial infarction with elevated troponin. 32. Tachycardia. 33. High-grade fever of 102.8. 34. Pancytopenia. 35. Dilated cardiomyopathy. 36. Status post incision and drainage of the right-sided gluteal abscess. 37. Hypertensive cardiomyopathy. 38. Status post automatic implantable cardioverter-defibrillator implant. 39. Secondary hyperparathyroidism. 40. End-stage dilated cardiomyopathy with ejection fraction of 25%. 41. Acute on chronic recurrent systolic congestive heart failure with dilated cardiomyopathy. 42. IV milrinone dependent. 43. Hypertension. The patient signed out against medical advise, understanding the risk and consequences of signing against advise. The time spent in the entire discharge process, more than 45 minutes. The patient signed out against medical ache advised understanding the risks and consequences of the hernias signing against medical advice. Time spent in the entire discharge process more than the more than the more than 45 minutes. Dictated and electronically signed, not read. Refugio Varner MD [facility]
== END 2017-06-09 19:09 | disposition left against medical advice (07) | DRG 871 ==
LOC: ED 17:25 → ERH 20:45 → 2RSO 22:48 → CCU 06-06 11:38 → 2RNO 06-08 19:25
PROVIDERS: ADMIT Internal Medicine; ATTEND Internal Medicine
PROC: 0H98XZZ Drainage of Buttock Skin, External Approach (ICD-10-PCS; 2017-06-02)
PROC: 5A1D60Z (ICD-10-PCS; 2017-06-03)
PROC: 4A023N7 Measurement of Cardiac Sampling and Pressure, Left Heart, Percutaneous Approach (ICD-10-PCS; principal; 2017-06-07)
PROC: B211YZZ Fluoroscopy of Multiple Coronary Arteries using Other Contrast (ICD-10-PCS; 2017-06-07)
PROC: B215YZZ Fluoroscopy of Left Heart using Other Contrast (ICD-10-PCS; 2017-06-07)
PROC: B310YZZ Fluoroscopy of Thoracic Aorta using Other Contrast (ICD-10-PCS; 2017-06-07)
PROC: 4B02XTZ Measurement of Cardiac Defibrillator, External Approach (ICD-10-PCS; 2017-06-07)
DX: A41.9 Sepsis, unspecified organism (principal); L02.31 Cutaneous abscess of buttock; L03.317 Cellulitis of buttock; I50.23 Acute on chronic systolic (congestive) heart failure; N18.6 End stage renal disease; I21.4 Non-ST elevation (NSTEMI) myocardial infarction; I47.2 Ventricular tachycardia; D61.818 Other pancytopenia; I42.0 Dilated cardiomyopathy; I47.1 Supraventricular tachycardia; N25.81 Secondary hyperparathyroidism of renal origin; I13.2 Hypertensive heart and chronic kidney disease with heart failure and with stage 5 chronic kidney disease, or end stage renal disease; Z99.2 Dependence on renal dialysis; I25.10 Atherosclerotic heart disease of native coronary artery without angina pectoris; D63.1 Anemia in chronic kidney disease; K42.9 Umbilical hernia without obstruction or gangrene; R59.0 Localized enlarged lymph nodes; G47.00 Insomnia, unspecified; R19.7 Diarrhea, unspecified; F41.9 Anxiety disorder, unspecified; E66.9 Obesity, unspecified; Z68.33 Body mass index [BMI] 33.0-33.9, adult; Z91.19 Patient's noncompliance with other medical treatment and regimen; Z98.61 Coronary angioplasty status; Z95.810 Presence of automatic (implantable) cardiac defibrillator; Z88.9 Allergy status to unspecified drugs, medicaments and biological substances; Z87.891 Personal history of nicotine dependence